=== PATIENT | female | born 1935 | race Caucasian/White ===

== ENCOUNTER 2017-07-11 21:11 | Emergency (ER) | payer MEDICARE, BC, SELFPAY ==
[2017-07-11 21:13] VITALS: BP 155/78; PULSE 67; RESP 18; TEMP 36.4; O2SAT 96; BMI 30.9
--- NOTE | 2017-07-11 21:31 | RAD_ITS ---
STUDY: X-RAY - PELVIS AND LEFT HIP REASON FOR EXAM: Female, 82 years old. Fall and left hip pain TECHNIQUE: Radiological exam, hip, unilateral, with pelvis when performed; minimum of 4 views COMPARISON: 07/09/2016 FINDINGS: Acute fractures of the left superior and inferior pubic rami and the medial left acetabulum. No proximal left femur fracture is seen. Hip joint space on the left is intact. Hardware in the right femur. Diffuse demineralization. Pelvic phleboliths. RAD/Hip 2-3 Views with Pelvis IMPRESSION: Acute fractures of the left superior and inferior pubic rami and the medial left acetabulum. Electronically Signed: Jere Todd MD at 22:47 EDT Tel , Service support ,
--- NOTE | 2017-07-11 21:31 | EKG12_ITS ---
Test Reason : FALL Blood Pressure : / mmHG Vent. Rate : 064 BPM Atrial Rate : 064 BPM P-R Int : 172 ms QRS Dur : 084 ms QT Int : 370 ms P-R-T Axes : 086 000 029 degrees QTc Int : 381 ms Normal sinus rhythm Normal ECG Confirmed by JOAQUIN TRUJILLO MD ([id number]), scientific editor KJ ESCOBAR ([id number] on 07/12/2017 2:27:47 PM Referred By: JASPREET Confirmed By:JOAQUIN TRUJILLO MD
--- NOTE | 2017-07-11 21:31 | RAD_ITS ---
STUDY: X-RAY - LUMBAR SPINE REASON FOR EXAM: Female, 82 years old. Fall TECHNIQUE: 3 view(s) of the lumbar spine were obtained. COMPARISON: 08/02/2016 FINDINGS: Remote compression deformities and vertebral augmentations at the T12 and L1 levels. Stable remote compression deformities at the L2 and L5 levels. Diffuse demineralization and facet disease. Hardware in the right femur. Aortic calcifications. Humeral hardware. RAD/Lumbar Spine 2 or 3 Views IMPRESSION: Multiple remote compression deformities as described. No acute osseous injury is visible. Comment: If there is further clinical concern for a radiographically occult spinal fracture, consider CT correlation if possible. Electronically Signed: Jere Todd MD at 22:44 EDT Tel , Service support ,
[2017-07-11] MEDS: Ondansetron 4 MG/2 ML Vial IV (21:46)
[2017-07-11] MEDS: fentaNYL 100 MCG/2 ML Ampul 25 MCG IV (21:46)
[2017-07-11 22:00] LABS: Absolute Lymphocyte Count 1.14 X10^3/ul (0.83-4.51); Absolute Neutrophil Count 11.9 X10^3/uL (2.0-7.7); Basophil# 0.01 X10^3/uL; Basophil% 0.1 % (0-1); Eosinophil# 0.05 X10^3/uL; Eosinophils% 0.4 % (0-5); Hematocrit 36.3 % (37-47); Hemoglobin 11.5 g/dl (12.0-15.0); Lymphocyte # 1.14 X10^3/ul (4.0); Lymphocyte % 8.2 % (19-41); Mean Corp Hgb Conc 31.7 g/gl (32-36); Mean Corpuscular Hgb 30.1 pg (27.0-32.0); Mean Platelet Vol. 12.3 fl (6.2-12.0); Monocyte# 0.78 X10^3/uL; Monocyte% 5.6 % (0-10); Neutrophil # 11.88 X10^3/uL (2.7-7.7); Platelet Count 148 K/mm3 (150-450); RBC Distribution Width CV 17.4 % (11.6-14.6); RBC Distribution Width SD 58.7 fl (35.1-43.9); Red Blood Count 3.82 M/mm3 (4.2-5.4)
--- NOTE | 2017-07-11 22:00 | RAD_ITS ---
STUDY: X-RAY CHEST REASON FOR EXAM: Female, 82 years old. Fall TECHNIQUE: Single frontal view of the chest. COMPARISON: 03/31/2017 FINDINGS: The lungs are clear and expanded. There is no demonstrated pleural abnormality. Normal size heart. Normal mediastinum and fritz. Normal visualized pulmonary arteries. Normal visualized aortic arch and descending thoracic aorta. Vertebral augmentations. Bilateral shoulder prostheses. There is no demonstrated abnormality of the visualized soft tissue structures of the upper abdomen. RAD/Chest 1 View (Portable) IMPRESSION: No acute pulmonary findings. Electronically Signed: Jere Todd MD at 22:42 EDT Tel , Service support ,
[2017-07-11 22:01] LABS: POSITIVE COUNT NO; POSITIVE DIFFERENTIAL NO; POSITIVE MORPHOLOGY NO
[2017-07-11 22:03] LABS: International Normalized Ratio 1.2; Prothrombin Time (Protime)PT. 15.6 SECONDS (11.7-14.9)
[2017-07-11 22:15] LABS: Anion Gap 7 (5-15); BUN 16 mg/dL (7-18); BUN/Creat Ratio 10.7 RATIO (10-20); Calcium,Total 8.1 mg/dL (8.5-10.1); Chloride 104 mmol/L (98-107); EST Glomerular Filtration Rate 35 mL/min (>60); Est Glom Filt Rate - Afr Amer 43 mL/min (>60); Estimated Creatinine Clearance 21.13 ml/min; Glucose 107 mg/dL (74-106); Potassium 4.3 mmol/L (3.5-5.1); Sodium Level 139 mmol/L (136-145)
--- NOTE | 2017-07-11 23:11 | NURSING ---
SPOKE WITH SON ABDA. SON WAS GIVEN UPDATE OF PATIENTS CONDITION. WILL CALL SON WHEN FURTHER PLAN OF CARE IS DEVELOPED. HIS NUMBER IS [phone]
[2017-07-11 23:30] VITALS: BP 179/86; PULSE 76; RESP 22; O2SAT 96
[2017-07-11] MEDS: fentaNYL 100 MCG/2 ML Ampul 50 MCG IV (23:36)
--- NOTE | 2017-07-12 00:08 | ED.VISSUMM ---
- ER Visit Summary Date of Service: 07/12/17 Chief Complaint: Fall History of Present Illness: The patient is a 82 F who presents after a fall. She presents from a nursing facility. Normally she requires assistance to ambulate. She had gotten up to go to the bathroom. After getting back in bed her pants were still on. She tried to stand up at the side of her bed on her own to change when she fell. She currently only complains of lower back pain and left hip pain. Inability to ambulate. Denies head injury loss of consciousness headache or vomiting. Denies chest pain abdominal pain upper back or neck pain. Physical Examination: Afebrile vitals are stable Heart regular rate and rhythm Lungs are clear Abdomen soft 2+ dorsalis pedis pulses Painful limited range of motion in the bilateral lower extremities as this reproduces severe left hip pain no shortening Test Results: Chest x-ray shows no acute process. Lumbar x-ray shows old fractures no acute fractures. Hip x-ray shows left superior and inferior pubic rami fracture as well as a left acetabular fracture. EKG shows sinus rhythm at a rate of 64. Laboratory studies show white blood cell count 14.0 creatinine 1.5. INR 1.2. Emergency Department Course and Treatment: X-rays are notable for inferior and superior pubic rami fractures and a left acetabular fracture on the left. Therefore she was transferred to a trauma facility. Her prior surgeries have been done at [facility] therefore she was transferred to [facility]. She was given fentanyl for pain here. She did desaturate and require oxygen via nasal cannula. Treatment Plan: [] Disposition: Transfer Impression: Left acetabular fracture Left superior and inferior pubic rami fractures This note was generated with [employer] dictation software. It may contain incorrect words, spelling, and punctuation that were not noted in review of the chart prior to signing ED Disposition - Plan for ED Patient: Chief Complaint: Fall Referrals: Eddy Leigh III, MD [Primary Care Provider] -
--- NOTE | 2017-07-12 00:11 | ED.RN ---
[facility] called and updated on patients condition and status. snf will contact family and update
--- NOTE | 2017-07-12 00:12 | ED.DCSUM_ITS ---
- ER Visit Summary Date of Service: 07/12/17 Chief Complaint: Fall History of Present Illness: The patient is a 82 F who presents after a fall. She presents from a nursing facility. Normally she requires assistance to ambulate. She had gotten up to go to the bathroom. After getting back in bed her pants were still on. She tried to stand up at the side of her bed on her own to change when she fell. She currently only complains of lower back pain and left hip pain. Inability to ambulate. Denies head injury loss of consciousness headache or vomiting. Denies chest pain abdominal pain upper back or neck pain. Physical Examination: Afebrile vitals are stable Heart regular rate and rhythm Lungs are clear Abdomen soft 2+ dorsalis pedis pulses Painful limited range of motion in the bilateral lower extremities as this reproduces severe left hip pain no shortening Test Results: Chest x-ray shows no acute process. Lumbar x-ray shows old fractures no acute fractures. Hip x-ray shows left superior and inferior pubic rami fracture as well as a left acetabular fracture. EKG shows sinus rhythm at a rate of 64. Laboratory studies show white blood cell count 14.0 creatinine 1.5. INR 1.2. Emergency Department Course and Treatment: X-rays are notable for inferior and superior pubic rami fractures and a left acetabular fracture on the left. Therefore she was transferred to a trauma facility. Her prior surgeries have been done at [facility] therefore she was transferred to [facility]. She was given fentanyl for pain here. She did desaturate and require oxygen via nasal cannula. Treatment Plan: [] Disposition: Transfer Impression: Left acetabular fracture Left superior and inferior pubic rami fractures This note was generated with [employer] dictation software. It may contain incorrect words, spelling, and punctuation that were not noted in review of the chart prior to signing ED Disposition - Plan for ED Patient: Chief Complaint: Fall Referrals: Eddy Leigh III, MD [Primary Care Provider] -
[2017-07-12 01:00] VITALS: BP 161/67; PULSE 69; RESP 18; O2SAT 94
[2017-07-12 01:01] VITALS: BP 161/67; PULSE 69; RESP 18; O2SAT 95
== END 2017-07-12 01:30 | disposition short-term general hospital (02) ==
PROVIDERS: Emergency Provider Emergency Medicine; Family Provider Family Medicine; PCP Family Medicine
DX: S32.402A Unspecified fracture of left acetabulum, initial encounter for closed fracture (principal); S32.512A Fracture of superior rim of left pubis, initial encounter for closed fracture; S32.592A Other specified fracture of left pubis, initial encounter for closed fracture; W06.XXXA Fall from bed, initial encounter; Y93.9 Activity, unspecified; Y92.129 Unspecified place in nursing home as the place of occurrence of the external cause; Y99.9 Unspecified external cause status; I10 Essential (primary) hypertension; Z79.01 Long term (current) use of anticoagulants; Z79.899 Other long term (current) drug therapy
CPT/HCPCS: 71045; 72100; 73502; 80048; 85025; 85610; 93005; 96374; 96375; 96376; 99285; A4216; J2405

== ENCOUNTER → 2017-07-15 05:00 | Outpatient (REF) | payer MEDICARE, BC, SELFPAY ==
[2017-07-15 09:10] LABS: Prothrombin Time Fingerstick 16.4 SEC (11.9-14.4)
== END ==
LOC: OLS.WCC 05:00
PROVIDERS: Visit Provider Family Medicine
DX: I48.91 Unspecified atrial fibrillation (principal); I10 Essential (primary) hypertension; Z79.899 Other long term (current) drug therapy; Z79.01 Long term (current) use of anticoagulants
CPT/HCPCS: 36416; 85610

== ENCOUNTER → 2017-07-22 05:00 | Outpatient (REF) | payer MEDICARE, BC, SELFPAY ==
[2017-07-22 10:19] LABS: Anion Gap 7 (5-15); BUN 19 mg/dL (7-18); BUN/Creat Ratio 12.9 RATIO (10-20); Calcium,Total 8.4 mg/dL (8.5-10.1); Chloride 99 mmol/L (98-107); Cholesterol 118 mg/dL (200); Creatinine, Serum 1.47 mg/dL (0.55-1.02); EST Glomerular Filtration Rate 36 mL/min (>60); Est Glom Filt Rate - Afr Amer 44 mL/min (>60); Glucose 77 mg/dL (74-106); High Density Lipoprotein 50 mg/dL; Potassium 4.2 mmol/L (3.5-5.1); Sodium Level 137 mmol/L (136-145); Thyroid Stim Hormone (TSH) 4.17 uIU/mL (0.358-3.74); Triglycerides 106 mg/dL; Very Low Density Lipoprotein 21 mg/dL (5-40)
== END ==
LOC: OLS.WCC 05:00
PROVIDERS: Visit Provider Family Medicine
DX: I48.91 Unspecified atrial fibrillation (principal); D64.9 Anemia, unspecified; I10 Essential (primary) hypertension; E78.5 Hyperlipidemia, unspecified; E03.9 Hypothyroidism, unspecified
CPT/HCPCS: 36415; 80048; 80061; 84443

== ENCOUNTER → 2017-07-29 04:00 | Outpatient (REF) | payer MEDICARE, BC, SELFPAY ==
[2017-07-29 07:51] LABS: Prothrombin Time Fingerstick 17.2 SEC (11.9-14.4)
== END ==
LOC: OLS.WCC 04:00
PROVIDERS: Visit Provider Family Medicine
DX: I48.91 Unspecified atrial fibrillation (principal); Z79.01 Long term (current) use of anticoagulants
CPT/HCPCS: 36416; 85610

== ENCOUNTER → 2017-08-05 05:00 | Outpatient (REF) | payer MEDICARE, BC, SELFPAY ==
[2017-08-05 09:28] LABS: International Normalized Ratio 2.2; Prothrombin Time (Protime)PT. 24.2 SECONDS (11.7-14.9)
[2017-08-05 09:30] LABS: Anion Gap 7 (5-15); BUN 14 mg/dL (7-18); BUN/Creat Ratio 11.4 RATIO (10-20); Calcium,Total 8.5 mg/dL (8.5-10.1); Chloride 103 mmol/L (98-107); Creatinine, Serum 1.23 mg/dL (0.55-1.02); EST Glomerular Filtration Rate 45 mL/min (>60); Est Glom Filt Rate - Afr Amer 54 mL/min (>60); Glucose 73 mg/dL (74-106); Potassium 3.7 mmol/L (3.5-5.1); Sodium Level 140 mmol/L (136-145)
== END ==
LOC: OLS.WCC 05:00
PROVIDERS: Visit Provider Family Medicine
DX: I48.91 Unspecified atrial fibrillation (principal); D64.9 Anemia, unspecified; Z79.01 Long term (current) use of anticoagulants
CPT/HCPCS: 80048; 85610

== ENCOUNTER → 2017-08-12 05:00 | Outpatient (REF) | payer MEDICARE, BC, SELFPAY ==
[2017-08-12 07:30] LABS: Prothrombin Time Fingerstick 32.9 SEC (11.9-14.4)
== END ==
LOC: OLS.WCC 05:00
PROVIDERS: Visit Provider Family Medicine
DX: I48.91 Unspecified atrial fibrillation (principal); Z79.01 Long term (current) use of anticoagulants
CPT/HCPCS: 36416; 85610

== ENCOUNTER → 2017-08-19 05:00 | Outpatient (REF) | payer MEDICARE, BC, SELFPAY ==
[2017-08-19 08:36] LABS: Anion Gap 6 (5-15); BUN 15 mg/dL (7-18); BUN/Creat Ratio 12.7 RATIO (10-20); Chloride 104 mmol/L (98-107); Creatinine, Serum 1.18 mg/dL (0.55-1.02); EST Glomerular Filtration Rate 47 mL/min (>60); Est Glom Filt Rate - Afr Amer 57 mL/min (>60); Glucose 81 mg/dL (74-106); Potassium 3.4 mmol/L (3.5-5.1); Sodium Level 141 mmol/L (136-145)
[2017-08-19 08:38] LABS: Prothrombin Time (Protime)PT. 40.3 SECONDS (11.7-14.9)
[2017-08-19 08:49] LABS: International Normalized Ratio 4.1
== END ==
LOC: OLS.WCC 05:00
PROVIDERS: Visit Provider Family Medicine
DX: I48.91 Unspecified atrial fibrillation (principal); D64.9 Anemia, unspecified; Z79.899 Other long term (current) drug therapy; Z79.01 Long term (current) use of anticoagulants
CPT/HCPCS: 36415; 80048; 85610

== ENCOUNTER → 2017-08-23 05:00 | Outpatient (REF) | payer MEDICARE, BC, SELFPAY ==
[2017-08-23 08:22] LABS: Hematocrit 33.4 % (37-47); Hemoglobin 10.3 g/dl (12.0-15.0); Mean Corp Hgb Conc 30.8 g/gl (32-36); Mean Corpuscular Hgb 30.3 pg (27.0-32.0); Mean Corpuscular Volume 98.2 fL (81-99); Mean Platelet Vol. 11.5 fl (6.2-12.0); Platelet Count 203 K/mm3 (150-450); RBC Distribution Width CV 16.4 % (11.6-14.6); RBC Distribution Width SD 56.8 fl (35.1-43.9); White Blood Count 5.4 K/mm3 (4.4-11.0)
[2017-08-23 08:31] LABS: Scan Indicated on CBC? Y/N NO
[2017-08-23 08:47] LABS: International Normalized Ratio 2.3; Prothrombin Time (Protime)PT. 25.4 SECONDS (11.7-14.9)
== END ==
LOC: OLS.WCC 05:00
PROVIDERS: Visit Provider Family Medicine
DX: D64.9 Anemia, unspecified (principal); Z79.899 Other long term (current) drug therapy; Z79.01 Long term (current) use of anticoagulants
CPT/HCPCS: 36415; 85027; 85610

== ENCOUNTER → 2017-08-29 05:00 | Outpatient (REF) | payer MEDICARE, BC, SELFPAY ==
[2017-08-29 08:31] LABS: Prothrombin Time Fingerstick 33.9 SEC (11.9-14.4)
== END ==
LOC: OLS.WCC 05:00
PROVIDERS: Visit Provider Family Medicine
DX: I48.91 Unspecified atrial fibrillation (principal)
CPT/HCPCS: 36416; 85610

== ENCOUNTER → 2017-09-02 04:00 | Outpatient (REF) | payer MEDICARE, BC, SELFPAY ==
[2017-09-02 09:09] LABS: International Normalized Ratio 2.8; Prothrombin Time (Protime)PT. 29.6 SECONDS (11.7-14.9)
[2017-09-02 09:17] LABS: Anion Gap 6 (5-15); BUN 15 mg/dL (7-18); Calcium,Total 8.2 mg/dL (8.5-10.1); Chloride 104 mmol/L (98-107); Creatinine, Serum 1.25 mg/dL (0.55-1.02); EST Glomerular Filtration Rate 44 mL/min (>60); Est Glom Filt Rate - Afr Amer 53 mL/min (>60); Glucose 75 mg/dL (74-106); Potassium 3.8 mmol/L (3.5-5.1); Sodium Level 140 mmol/L (136-145)
== END ==
LOC: OLS.WCC 04:00
PROVIDERS: Visit Provider Family Medicine
DX: I48.91 Unspecified atrial fibrillation (principal); Z79.899 Other long term (current) drug therapy
CPT/HCPCS: 36415; 80048; 85610

== ENCOUNTER → 2017-09-09 05:00 | Outpatient (REF) | payer MEDICARE, BC, SELFPAY ==
[2017-09-09 09:01] LABS: Prothrombin Time Fingerstick 36.2 SEC (11.9-14.4)
== END ==
LOC: OLS.WCC 05:00
PROVIDERS: Visit Provider Family Medicine
DX: I48.91 Unspecified atrial fibrillation (principal); Z79.899 Other long term (current) drug therapy
CPT/HCPCS: 36416; 85610

== ENCOUNTER → 2017-09-23 07:46 | Outpatient (REF) | payer MEDICARE, BC, SELFPAY ==
[2017-09-26 14:59] LABS: International Normalized Ratio 1.2; Prothrombin Time (Protime)PT. 15.4 SECONDS (11.7-14.9)
== END ==
LOC: OLS.WCC 07:46
PROVIDERS: Visit Provider Family Medicine
DX: I48.91 Unspecified atrial fibrillation (principal); Z79.899 Other long term (current) drug therapy
CPT/HCPCS: 36415; 85610

== ENCOUNTER → 2017-09-30 05:00 | Outpatient (REF) | payer MEDICARE, BC, SELFPAY ==
[2017-09-30 09:47] LABS: International Normalized Ratio 1.2; Prothrombin Time (Protime)PT. 14.7 SECONDS (11.7-14.9)
[2017-09-30 09:52] LABS: Hemoglobin A1c 4.7 % (4.2-6.3)
[2017-09-30 09:59] LABS: ALB/GLOB Ratio 0.9 RATIO (0.9-2.4); AST(SGOT) 16 U/L (15-37); Alanine Aminotransfer ALT/SGPT 14 U/L (13-56); Albumin, Serum 2.5 g/dL (3.2-5.0); Alkaline Phosphatase 82 U/L (45-117); Anion Gap 9 (5-15); BUN 16 mg/dL (7-18); BUN/Creat Ratio 14.8 RATIO (10-20); CPK Total, Creatine Kinase 22 U/L (26-192); Calcium,Total 8.1 mg/dL (8.5-10.1); Chloride 102 mmol/L (98-107); Creatinine, Serum 1.08 mg/dL (0.55-1.02); EST Glomerular Filtration Rate 52 mL/min (>60); Est Glom Filt Rate - Afr Amer 63 mL/min (>60); Globulin 2.9 g/dL (2.2-4.2); Glucose 74 mg/dL (74-106); Potassium 3.7 mmol/L (3.5-5.1); Protein, Total 5.4 g/dL (6.4-8.2); Rheumatoid Factor < 10.0 IU/mL (<15); Sodium Level 141 mmol/L (136-145); Thyroid Stim Hormone (TSH) 2.02 uIU/mL (0.358-3.74)
[2017-09-30 10:05] LABS: Vitamin B12 494 pg/mL (211-911)
[2017-10-04 16:11] LABS: Albumin 2.8 g/dL (2.9-4.4); Alpha-1-Globulins 0.2 g/dL (0.0-0.4); Alpha-2-Globulins 0.7 g/dL (0.4-1.0); Cytoplasmic Ab (C-ANCA) <1:20 titer (Neg:<1:20); Gamma Globulin 0.6 g/dL (0.4-1.8); Immunoglobulin A 283 mg/dL (64-422); Immunoglobulin G 562 mg/dL (700-1600); Immunoglobulin M 82 mg/dL (26-217)
[2017-10-05 14:22] LABS: Ceruloplasmin 18.9 mg/dL (19.0-39.0); IMMUNOFIXATION RESULT,S Comment: (.); Perinuclear Ab (P-ANCA) <1:20 titer (Neg:<1:20)
== END ==
LOC: OLS.WCC 05:00
PROVIDERS: Visit Provider Family Medicine
DX: I48.91 Unspecified atrial fibrillation (principal); I10 Essential (primary) hypertension; Z79.899 Other long term (current) drug therapy; Z79.01 Long term (current) use of anticoagulants; G62.9 Polyneuropathy, unspecified; R25.1 Tremor, unspecified
CPT/HCPCS: 36415; 80053; 82390; 82525; 82550; 82607; 82784; 83036; 84165; 84443; 85610; 86038; 86235; 86256; 86334; 86431

== ENCOUNTER → 2017-10-03 14:40 | Outpatient (REF) | payer MEDICARE, BC, SELFPAY | LOC: OLS.WCC 14:40 | DX: G62.9 Polyneuropathy, unspecified (principal); R25.1 Tremor, unspecified | CPT/HCPCS: 84166; 86335 ==

== ENCOUNTER → 2017-10-07 05:00 | Outpatient (REF) | payer MEDICARE, BC, SELFPAY ==
[2017-10-07 09:50] LABS: Prothrombin Time Fingerstick 14.6 SEC (11.9-14.4)
== END ==
LOC: OLS.WCC 05:00
PROVIDERS: Visit Provider Family Medicine
DX: I48.91 Unspecified atrial fibrillation (principal); Z79.01 Long term (current) use of anticoagulants
CPT/HCPCS: 36416; 85610

== ENCOUNTER → 2017-10-30 05:00 | Outpatient (REF) | payer MEDICARE, BC, SELFPAY ==
[2017-10-30 07:48] LABS: Anion Gap 7 (5-15); BUN 23 mg/dL (7-18); BUN/Creat Ratio 15.2 RATIO (10-20); Calcium,Total 8.4 mg/dL (8.5-10.1); Chloride 102 mmol/L (98-107); Creatinine, Serum 1.51 mg/dL (0.55-1.02); EST Glomerular Filtration Rate 35 mL/min (>60); Est Glom Filt Rate - Afr Amer 43 mL/min (>60); Glucose 77 mg/dL (74-106); Potassium 4.6 mmol/L (3.5-5.1); Sodium Level 141 mmol/L (136-145)
== END ==
LOC: OLS.WCC 05:00
PROVIDERS: Visit Provider Family Medicine
DX: E78.5 Hyperlipidemia, unspecified (principal); E03.9 Hypothyroidism, unspecified; Z79.899 Other long term (current) drug therapy
CPT/HCPCS: 36415; 80048

== ENCOUNTER → 2017-11-11 05:00 | Outpatient (REF) | payer MEDICARE, BC, SELFPAY ==
[2017-11-11 09:41] LABS: Anion Gap 6 (5-15); BUN 15 mg/dL (7-18); BUN/Creat Ratio 11.9 RATIO (10-20); Calcium,Total 8.7 mg/dL (8.5-10.1); Chloride 104 mmol/L (98-107); Creatinine, Serum 1.26 mg/dL (0.55-1.02); EST Glomerular Filtration Rate 43 mL/min (>60); Est Glom Filt Rate - Afr Amer 52 mL/min (>60); Glucose 86 mg/dL (74-106); Potassium 4.4 mmol/L (3.5-5.1); Sodium Level 143 mmol/L (136-145)
== END ==
LOC: OLS.WCC 05:00
PROVIDERS: Visit Provider Family Medicine
DX: Z79.899 Other long term (current) drug therapy (principal)
CPT/HCPCS: 36415; 80048

== ENCOUNTER → 2017-11-25 05:00 | Outpatient (REF) | payer MEDICARE, BC, SELFPAY ==
[2017-11-25 10:17] LABS: Anion Gap 8 (5-15); BUN 24 mg/dL (7-18); BUN/Creat Ratio 15.5 RATIO (10-20); Calcium,Total 8.2 mg/dL (8.5-10.1); Chloride 104 mmol/L (98-107); Creatinine, Serum 1.55 mg/dL (0.55-1.02); EST Glomerular Filtration Rate 34 mL/min (>60); Est Glom Filt Rate - Afr Amer 41 mL/min (>60); Glucose 83 mg/dL (74-106); Potassium 3.9 mmol/L (3.5-5.1); Sodium Level 144 mmol/L (136-145)
== END ==
LOC: OLS.WCC 05:00
PROVIDERS: Visit Provider Family Medicine
DX: D64.9 Anemia, unspecified (principal); I10 Essential (primary) hypertension
CPT/HCPCS: 36415; 80048

== ENCOUNTER → 2017-12-09 05:00 | Outpatient (REF) | payer MEDICARE, BC, SELFPAY ==
[2017-12-09 08:10] LABS: Anion Gap 10 (5-15); BUN 23 mg/dL (7-18); BUN/Creat Ratio 16.2 RATIO (10-20); Calcium,Total 8.4 mg/dL (8.5-10.1); Chloride 105 mmol/L (98-107); Creatinine, Serum 1.42 mg/dL (0.55-1.02); EST Glomerular Filtration Rate 38 mL/min (>60); Est Glom Filt Rate - Afr Amer 46 mL/min (>60); Glucose 82 mg/dL (74-106); Potassium 4.3 mmol/L (3.5-5.1); Sodium Level 145 mmol/L (136-145)
== END ==
LOC: OLS.WCC 05:00
PROVIDERS: Visit Provider Family Medicine
DX: D64.9 Anemia, unspecified (principal); I10 Essential (primary) hypertension
CPT/HCPCS: 36415; 80048

== ENCOUNTER → 2017-12-24 05:00 | Outpatient (REF) | payer MEDICARE, BC, SELFPAY ==
[2017-12-24 09:41] LABS: Anion Gap 10 (5-15); BUN 19 mg/dL (7-18); Calcium,Total 8.4 mg/dL (8.5-10.1); Chloride 104 mmol/L (98-107); Creatinine, Serum 1.46 mg/dL (0.55-1.02); EST Glomerular Filtration Rate 37 mL/min (>60); Est Glom Filt Rate - Afr Amer 44 mL/min (>60); Glucose 80 mg/dL (74-106); Sodium Level 145 mmol/L (136-145)
== END ==
LOC: OLS.WCC 05:00
PROVIDERS: Visit Provider Family Medicine
DX: D64.9 Anemia, unspecified (principal); I10 Essential (primary) hypertension
CPT/HCPCS: 36415; 80048

== ENCOUNTER → 2018-01-06 05:00 | Outpatient (REF) | payer MEDICARE, BC, SELFPAY ==
[2018-01-06 07:33] LABS: Hematocrit 35.5 % (37-47); Hemoglobin 10.9 g/dl (12.0-15.0); Mean Corp Hgb Conc 30.7 g/gl (32-36); Mean Corpuscular Hgb 30.6 pg (27.0-32.0); Mean Corpuscular Volume 99.7 fL (81-99); Mean Platelet Vol. 11.9 fl (6.2-12.0); Platelet Count 135 K/mm3 (150-450); RBC Distribution Width CV 13.9 % (11.6-14.6); RBC Distribution Width SD 50.8 fl (35.1-43.9); Red Blood Count 3.56 M/mm3 (4.2-5.4)
[2018-01-06 07:42] LABS: Anion Gap 6 (5-15); BUN 28 mg/dL (7-18); BUN/Creat Ratio 17.5 RATIO (10-20); Calcium,Total 8.3 mg/dL (8.5-10.1); Chloride 105 mmol/L (98-107); EST Glomerular Filtration Rate 33 mL/min (>60); Est Glom Filt Rate - Afr Amer 40 mL/min (>60); Glucose 81 mg/dL (74-106); Potassium 3.9 mmol/L (3.5-5.1); Sodium Level 143 mmol/L (136-145)
[2018-01-06 07:44] LABS: Scan Indicated on CBC? Y/N NO
== END ==
LOC: OLS.WCC 05:00
PROVIDERS: Visit Provider Family Medicine
DX: D64.9 Anemia, unspecified (principal); I10 Essential (primary) hypertension
CPT/HCPCS: 36415; 80048; 85027

== ENCOUNTER → 2018-01-07 07:50 | Outpatient (CLI) | payer MEDICARE, BC, SELFPAY ==
--- NOTE | 2018-01-07 10:53 | NEURO_ITS ---
NCS and/or EMG Patient Report Ordering Doctor: Sang Baker DATE OF SERVICE: 01/07/18 This is a bilateral lower extremity nerve conduction study and a right lower extremity EMG performed on this 82-year-old female with a history of pain in her right lower extremity. There is a history of ankle fracture and increased pain to sensation on examination of her foot. She also has a history of back pain but she says this is nonradiating. Bilateral lower extremity sensory and motor nerve conduction study is performed. The sural sensory response on the right is not obtainable, on the left it is normal. The right peroneal motor response is not obtainable, on the left side the peroneal motor latency is mildly prolonged with mild reduction of amplitude and slowing of conduction velocity. The right peroneal motor response proximally demonstrates low amplitude. The bilateral tibial motor distal latencies are prolonged with mild reduction of amplitude and slowing of conduction velocities. The tibial motor and peroneal motor F-wave latencies are prolonged and the right tibial H reflex response is reduced in amplitude. Right lower extremity needle electromyography is performed. Muscles evaluated included the extensor digitorum brevis, abductor halitosis, medial gastrocnemius , anterior tibialis, vastus medialis and vastus lateralis muscles. Muscles demonstrated early recruitment and large motor unit amplitude distally, this abnormality resolved more proximally. There is no radicular or mononeuropathy pattern. 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 There is no evidence of radiculopathy.
== END ==
PROVIDERS: Family Provider Family Medicine; PCP Family Medicine; Visit Provider Psychiatry & Neurology Neurology
DX: G62.9 Polyneuropathy, unspecified (principal); R20.0 Anesthesia of skin; R20.2 Paresthesia of skin
CPT/HCPCS: 95886; 95911

== ENCOUNTER → 2018-01-11 08:50 | Outpatient (CLI) | payer MEDICARE, BC, SELFPAY ==
--- NOTE | 2018-01-11 08:50 | LES_PTH ---
PATIENT: CHANDA KUMAR LOC: [facility] U#:[id number] AGE/SX: 89/F ROOM: RE01/11/[address]: Dr. Ranjit Leigh MD : [id number] BED: DIS: SPEC #: [id number] RECD: 01/13/18 07:20 STATUS: TOBIAS BREANNA #: [id number] YAMILETH: 01/11/18 08:[address]: Ranjit Leigh DEPT: SURGICAL PATHOLOGY RECD BY: Matthew Colon ENTERED: 01/13/18 08:44 SP TYPE: Lesion OTHR DR: Dr. 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 Actinic keratosis and solar elastosis. Perineural invasion is not seen. SJ:bubba 01/14/18 COMMENT Case has been reviewed in consultation with Dr. Medina who concurs with the above diagnosis. IDC:AM MICROSCOPIC DESCRIPTION Slides are reviewed. GROSS DESCRIPTION Received in fixative is one container labeled with the patient's name and designated left cheek. The specimen consists of an ellipse of light hawthorne excised skin measuring 3 x 1 x 0.5 cm. The cutaneous surface displays an exophytic hawthorne lesion measuring 1 cm in greatest dimension. A suture is present at one tip. This tip and corresponding half is inked in blue ink. The opposite half is inked in black ink. The specimen is serially sectioned and totally submitted in two cassettes as follows: 1 - tips and uninvolved skin, 2 - lesion. / AM:bubba 01/13/18 TC:0 CPT: 38275
== END ==
PROVIDERS: Family Provider Family Medicine; PCP Family Medicine; Visit Provider Surgery
DX: D48.7 Neoplasm of uncertain behavior of other specified sites (principal)
CPT/HCPCS: 88305

== ENCOUNTER → 2018-01-20 05:00 | Outpatient (REF) | payer MEDICARE, BC, SELFPAY ==
[2018-01-20 08:23] LABS: Anion Gap 5 (5-15); BUN 21 mg/dL (7-18); BUN/Creat Ratio 13.9 RATIO (10-20); Calcium,Total 8.5 mg/dL (8.5-10.1); Chloride 103 mmol/L (98-107); Creatinine, Serum 1.51 mg/dL (0.55-1.02); EST Glomerular Filtration Rate 35 mL/min (>60); Est Glom Filt Rate - Afr Amer 43 mL/min (>60); Glucose 84 mg/dL (74-106); Potassium 3.4 mmol/L (3.5-5.1); Sodium Level 140 mmol/L (136-145)
== END ==
LOC: OLS.WCC 05:00
PROVIDERS: Visit Provider Family Medicine
DX: D64.9 Anemia, unspecified (principal)
CPT/HCPCS: 36415; 80048

== ENCOUNTER → 2018-02-03 05:00 | Outpatient (REF) | payer MEDICARE, BC, SELFPAY ==
[2018-02-03 10:01] LABS: Anion Gap 8 (5-15); BUN 20 mg/dL (7-18); BUN/Creat Ratio 13.9 RATIO (10-20); Calcium,Total 8.6 mg/dL (8.5-10.1); Chloride 102 mmol/L (98-107); Cholesterol 110 mg/dL (200); Creatinine, Serum 1.44 mg/dL (0.55-1.02); EST Glomerular Filtration Rate 37 mL/min (>60); Est Glom Filt Rate - Afr Amer 45 mL/min (>60); Glucose 64 mg/dL (74-106); High Density Lipoprotein 47 mg/dL; Potassium 4.6 mmol/L (3.5-5.1); Sodium Level 140 mmol/L (136-145); Thyroid Stim Hormone (TSH) 0.16 uIU/mL (0.358-3.74); Triglycerides 55 mg/dL; Very Low Density Lipoprotein 11 mg/dL (5-40)
== END ==
LOC: OLS.WCC 05:00
PROVIDERS: Visit Provider Family Medicine
DX: D64.9 Anemia, unspecified (principal); I10 Essential (primary) hypertension; E03.9 Hypothyroidism, unspecified
CPT/HCPCS: 36415; 80048; 80061; 84443

== ENCOUNTER → 2018-02-17 05:00 | Outpatient (REF) | payer MEDICARE, BC, SELFPAY ==
[2018-02-17 08:37] LABS: Anion Gap 8 (5-15); BUN 25 mg/dL (7-18); BUN/Creat Ratio 20.2 RATIO (10-20); Calcium,Total 8.3 mg/dL (8.5-10.1); Chloride 102 mmol/L (98-107); Creatinine, Serum 1.24 mg/dL (0.55-1.02); EST Glomerular Filtration Rate 44 mL/min (>60); Est Glom Filt Rate - Afr Amer 53 mL/min (>60); Glucose 87 mg/dL (74-106); Potassium 4.3 mmol/L (3.5-5.1); Sodium Level 140 mmol/L (136-145)
== END ==
LOC: OLS.WCC 05:00
PROVIDERS: Visit Provider Family Medicine
DX: D64.9 Anemia, unspecified (principal); I10 Essential (primary) hypertension
CPT/HCPCS: 36415; 80048

== ENCOUNTER → 2018-03-03 04:00 | Outpatient (REF) | payer MEDICARE, BC, SELFPAY ==
[2018-03-03 08:58] LABS: Anion Gap 6 (5-15); BUN 22 mg/dL (7-18); BUN/Creat Ratio 16.5 RATIO (10-20); Calcium,Total 8.2 mg/dL (8.5-10.1); Chloride 103 mmol/L (98-107); Creatinine, Serum 1.33 mg/dL (0.55-1.02); EST Glomerular Filtration Rate 41 mL/min (>60); Est Glom Filt Rate - Afr Amer 49 mL/min (>60); Glucose 81 mg/dL (74-106); Potassium 4.1 mmol/L (3.5-5.1); Sodium Level 139 mmol/L (136-145)
== END ==
LOC: OLS.WCC 04:00
PROVIDERS: Visit Provider Family Medicine
DX: D64.9 Anemia, unspecified (principal); I10 Essential (primary) hypertension
CPT/HCPCS: 36415; 80048

== ENCOUNTER → 2018-03-25 05:00 | Outpatient (REF) | payer MEDICARE, BC, SELFPAY ==
[2018-03-25 09:43] LABS: Absolute Lymphocyte Count 1.16 X10^3/ul (0.83-4.51); Absolute Neutrophil Count 2.6 X10^3/uL (2.0-7.7); Basophil# 0.01 X10^3/uL; Basophil% 0.2 % (0-1); Eosinophil# 0.04 X10^3/uL; Eosinophils% 0.9 % (0-5); Hematocrit 35.4 % (37-47); Hemoglobin 11.2 g/dl (12.0-15.0); Lymphocyte # 1.16 X10^3/ul (4.0); Lymphocyte % 26.7 % (19-41); Mean Corp Hgb Conc 31.6 g/gl (32-36); Mean Corpuscular Hgb 31.4 pg (27.0-32.0); Mean Corpuscular Volume 99.2 fL (81-99); Mean Platelet Vol. 11.6 fl (6.2-12.0); Monocyte# 0.49 X10^3/uL; Monocyte% 11.3 % (0-10); Neutrophil # 2.63 X10^3/uL (2.7-7.7); Neutrophil % 60.7 % (47-70); Platelet Count 173 K/mm3 (150-450); RBC Distribution Width CV 15.4 % (11.6-14.6); RBC Distribution Width SD 55.8 fl (35.1-43.9); Red Blood Count 3.57 M/mm3 (4.2-5.4); White Blood Count 4.3 K/mm3 (4.4-11.0)
[2018-03-25 09:45] LABS: POSITIVE COUNT NO; POSITIVE DIFFERENTIAL NO; POSITIVE MORPHOLOGY NO
[2018-03-25 10:08] LABS: AST(SGOT) 21 U/L (15-37); Alanine Aminotransfer ALT/SGPT 11 U/L (13-56); Albumin, Serum 2.5 g/dL (3.2-5.0); Alkaline Phosphatase 71 U/L (45-117); Anion Gap 10 (5-15); BUN 18 mg/dL (7-18); BUN/Creat Ratio 14.4 RATIO (10-20); Calcium,Total 8.1 mg/dL (8.5-10.1); Chloride 105 mmol/L (98-107); Creatinine, Serum 1.25 mg/dL (0.55-1.02); EST Glomerular Filtration Rate 44 mL/min (>60); Est Glom Filt Rate - Afr Amer 53 mL/min (>60); Globulin 2.6 g/dL (2.2-4.2); Glucose 73 mg/dL (74-106); Potassium 3.2 mmol/L (3.5-5.1); Protein, Total 5.1 g/dL (6.4-8.2); Sodium Level 143 mmol/L (136-145); Thyroid Stim Hormone (TSH) 0.34 uIU/mL (0.358-3.74)
== END ==
LOC: OLS.WCC 05:00
PROVIDERS: Visit Provider Family Medicine
DX: E03.9 Hypothyroidism, unspecified (principal); N18.9 Chronic kidney disease, unspecified; D50.9 Iron deficiency anemia, unspecified
CPT/HCPCS: 36415; 80053; 84443; 85025

== ENCOUNTER → 2018-04-02 05:00 | Outpatient (REF) | payer MEDICARE, BC, SELFPAY ==
[2018-04-02 08:06] LABS: Anion Gap 8 (5-15); BUN 19 mg/dL (7-18); BUN/Creat Ratio 17.1 RATIO (10-20); Chloride 107 mmol/L (98-107); Creatinine, Serum 1.11 mg/dL (0.55-1.02); EST Glomerular Filtration Rate 50 mL/min (>60); Est Glom Filt Rate - Afr Amer 61 mL/min (>60); Glucose 71 mg/dL (74-106); Potassium 3.5 mmol/L (3.5-5.1); Sodium Level 144 mmol/L (136-145)
--- OUTSIDE RECORDS SUMMARY | 2018-05-19 01:11 | XMS RPT_ITS ---
:1935 Author Organization OHIP Support Name Relationship Address Phone R Unavailable Unavailable Unavailable Amanda Baker Unavailable [address] + [place] [address] Dinh Baker Unavailable Unavailable + R Unavailable Unavailable Unavailable AMANDA BAKER Unavailable [address] + [place] [address] DINH BAKER Unavailable Unavailable + R Unavailable Unavailable Unavailable Amanda Baker Unavailable [address] + [place] [address] Dinh Baker Unavailable . + [place] [address] R Unavailable Unavailable Unavailable Amanda Baker Unavailable [address] + [place] [address] Dinh Baker Unavailable Unavailable + R Unavailable Unavailable Unavailable Amanda Baker Unavailable [address] + [place] [address] Dinh Baker Unavailable . + [place] [address] R Unavailable Unavailable Unavailable Amanda Baker Unavailable [address] + [place] [address] Dinh Baker Unavailable Unavailable + R Unavailable Unavailable Unavailable AMANDA BAKER Unavailable [address] + [place] [address] DINH BAKER Unavailable Unavailable + R Unavailable Unavailable Unavailable Amanda Baker Unavailable [address] + [place] [address] Dinh Baker Unavailable Unavailable + R Unavailable Unavailable Unavailable AMANDA BAKER Unavailable [address] + [place] [address] DINH BAKER Unavailable . + [place] [address] R Unavailable Unavailable Unavailable AMANDA BAKER Unavailable [address] + [place] [address] DINH BAKER Unavailable Unavailable + [place] [address] R Unavailable Unavailable Unavailable SAMUELAMANDA Unavailable [address] + [place] [address] DINH BAKER Unavailable . + [place] [address] R Unavailable Unavailable Unavailable SAMUELJARETTEN Unavailable [address] + [place] [address] DINH BAKER Unavailable Unavailable + [place] [address] R Unavailable Unavailable Unavailable SAMUEL AMANDA Unavailable [address] + [place] [address] DINH BAKER Unavailable Unavailable + R Unavailable Unavailable Unavailable SamuelJaretten Unavailable [address] + [place] [address] Dinh Baker Unavailable . + [place] [address] R Unavailable Unavailable Unavailable SAMUELJARETTEN Unavailable [address] + [place] [address] DINH BAKER Unavailable Unavailable + R Unavailable Unavailable Unavailable Samuel Amanda Unavailable [address] + [place] [address] Dinh Baker Unavailable Unavailable + R Unavailable Unavailable Unavailable AMANDA BAKER Unavailable [address] + [place] [address] DINH BAKER Unavailable . + [place] [address] R Unavailable Unavailable Unavailable Samuel Amanda Unavailable [address] + [place] [address] Dinh Baker Unavailable . + [place] [address] R Unavailable Unavailable Unavailable SAMUELJARETTEN Unavailable [address] + [place] [address] DINH BAKER Unavailable Unavailable + [place] [address] R Unavailable Unavailable Unavailable SamuelJaretten Unavailable [address] + [place] [address] Dinh Baker Unavailable . + [place] [address] R Unavailable Unavailable Unavailable SAMUELJARETTEN Unavailable [address] + [place] [address] ANIBAL BAKERE Unavailable Unavailable + [place] [address] R Unavailable Unavailable Unavailable Amanda Baker Unavailable [address] + [place] [address] Dinh Baker Unavailable . + [place] [address] R Unavailable Unavailable Unavailable Amanda Baker Unavailable [address] + [place] [address] Dinh Baker Unavailable . + [place] [address] R Unavailable Unavailable Unavailable Amanda Baker Unavailable [address] + [place] [address] Dinh Baker Unavailable . + [place] [address] R Unavailable Unavailable Unavailable Amanda Baker Unavailable [address] + [place] [address] Dinh Baker Unavailable . + [place] [address] R Unavailable Unavailable Unavailable Amanda Baker Unavailable [address] + [place] [address] Dinh Baker Unavailable . + [place] [address] R Unavailable Unavailable Unavailable Amanda Baker Unavailable [address] + [place] [address] Dinh Baker Unavailable . + [place] [address] R Unavailable Unavailable Unavailable Amanda Baker Unavailable [address] + [place] [address] Dinh Baker Unavailable . + [place] [address] R Unavailable Unavailable Unavailable SamuelAmanda Unavailable [address] + [place] [address] Anibal Bakere Unavailable . + [place] [address] R Unavailable Unavailable Unavailable SamuelAmanda Unavailable [address] + [place] [address] Dinh Baker Unavailable . + [place] [address] R Unavailable Unavailable Unavailable SamuelAmanda Unavailable [address] + [place] [address] Anibal Bakere Unavailable . + [place] [address] R Unavailable Unavailable Unavailable SamuelAmanda Unavailable [address] + [place] [address] Dinh Baker Unavailable . + [place] [address] R Unavailable Unavailable Unavailable SamuelAmanda Unavailable [address] + [place] [address] Dinh Baker Unavailable . + [place] [address] R Unavailable Unavailable Unavailable SamuelJaretten Unavailable [address] + [place] [address] Dinh Baker Unavailable . + [place] [address] Dinh Baker Unavailable Unavailable + Samuel Amanda Unavailable Unavailable + R Unavailable Unavailable Unavailable SamuelAmanda Unavailable [address] + [place] [address] Dinh Baker Unavailable . + [place] [address] R Unavailable Unavailable Unavailable SamuelJraetten Unavailable [address] + [place] [address] Dinh Baker Unavailable . + [place] [address] R Unavailable Unavailable Unavailable Samuel Amanda Unavailable [address] + [place] [address] Dinh Baker Unavailable . + [place] [address] R Unavailable Unavailable Unavailable Amanda Baker Unavailable [address] + [place] [address] Dinh Baker Unavailable . + [place] [address] R Unavailable Unavailable Unavailable Samuel Amanda Unavailable [address] + [place] [address] Dinh Baker Unavailable . + [place] [address] R Unavailable Unavailable Unavailable Samuel Amanda Unavailable [address] + [place] [address] Dinh Baker Unavailable . + [place] [address] R Unavailable Unavailable Unavailable Amanda Baker Unavailable [address] + [place] [address] Dinh Baker Unavailable . + [place] [address] R Unavailable Unavailable Unavailable Amanda Baker Unavailable [address] + [place] [address] Dinh Baker Unavailable . + [place] [address] R Unavailable Unavailable Unavailable Amanda Baker Unavailable [address] + [place] [address] Dinh Baker Unavailable . + [place] [address] R Unavailable Unavailable Unavailable Amanda Baker Unavailable [address] + [place] [address] Dinh Baker Unavailable . + [place] [address] R Unavailable Unavailable Unavailable Amanda Baker Unavailable [address] + [place] [address] Dinh Baker Unavailable . + [place] [address] R Unavailable Unavailable Unavailable Amanda Baker Unavailable [address] + [place] [address] Dinh Baker Unavailable . + [place] [address] R Unavailable Unavailable Unavailable Amanda Baker Unavailable [address] + [place] [address] Dinh Baker Unavailable . + [place] [address] R Unavailable Unavailable Unavailable Amanda Baker Unavailable [address] + [place] [address] Dinh Baker Unavailable . + [place] [address] R Unavailable Unavailable Unavailable Amanda Baker Unavailable [address] + [place] [address] Dinh Baker Unavailable . + [place] [address] Care Team Providers Name Role Phone Escobar, Stephen Attending Unavailable Escobar, Stephen Attending Unavailable Escobar, Stephen Attending Unavailable Escobar, Stephen Attending Unavailable Escobar, Stephen Attending Unavailable Escobar, Stephen Attending Unavailable Escobar, Stephen Attending Unavailable Escobar, Stephen Attending Unavailable Escobar, Stephen Attending Unavailable Escobar, Stephen Attending Unavailable Escobar, Stephen Attending Unavailable Escobar, Stephen Attending Unavailable Escobar, Stephen Attending Unavailable Escobar, Stephen Attending Unavailable Escobar, Stephen Attending Unavailable Roof, Stephen Moss Attending Unavailable Cebul III, Presley Referring Unavailable DeFinis, Roddy Attending Unavailable Cebul III, Presley Primary Care Unavailable ChaloSegun Attending Unavailable Escobar, Stephen Attending Unavailable Escobar, Stephen Attending Unavailable Escobar, Stephen Attending Unavailable Escobar, Stephen Attending Unavailable Escobar, Stephen Attending Unavailable Escobar, Stephen Attending Unavailable Escobar, Stephen Attending Unavailable Escobar, Stephen Attending Unavailable Escobar, Stephen Attending Unavailable Escobar, Stephen Attending Unavailable Escobar, Stephen Attending Unavailable Escobar, Stephen Attending Unavailable Escobar, Stephen Attending Unavailable [facility] Attending Unavailable Escobar, Stephen Attending Unavailable Escobar, Stephen Attending Unavailable Escobar, Stephen Attending Unavailable Escobar, Stephen Attending Unavailable Escobar, Stephen Attending Unavailable Escobar, Stephen Attending Unavailable Cebul, Ranjit Attending Unavailable Cebul III, Presley Referring Unavailable Cebul III, Presley Primary Care Unavailable Escobar, Stephen Attending Unavailable Sang Baker Attending Unavailable Sang Baker Referring Unavailable Cebul III, Presley Primary Care Unavailable Cebul, Ranjit Attending Unavailable Cebul III, Presley Referring Unavailable Cebul III, Presley Primary Care Unavailable Cebul, Ranjit Attending Unavailable Cebul, Ranjit Referring Unavailable Cebul III, Presley Primary Care Unavailable Brittnee Queen PA-C Attending Unavailable Cebul III, Presley Referring Unavailable Escobar, Stephen Attending Unavailable Escobar, Stephen Attending Unavailable Escobar, Stephen Attending Unavailable Escobar, Stephen Attending Unavailable Escobar, Stephen Attending Unavailable KAREN OSUNA Attending Unavailable PROVIDER, UNKNOWN Referring Unavailable UNKNOWN, PROVIDER Primary Care Unavailable ALEX BAKER Referring Unavailable ALEX BAKER Referring Unavailable CEBUL III, PRESLEY A Referring Unavailable CEBUL III, PRESLEY A Referring Unavailable [facility] Referring Unavailable Stephen Escobar H Primary Care Unavailable [facility] Referring Unavailable Escobar, Stephen H Primary Care Unavailable PROBLEMS PROBLEMS DATE TYPE CONDITION / CODE ATTENDING STATUS SOURCE 05/01/2018 Unknown I10 - Essential Stephen Escobar Active [facility] (primary) [facility] hypertension / Hospital I10(ICD-10) Repository 05/01/2018 Unknown F03.90 - Stephen Escobar Active [facility] Unspecified Community dementia without Hospital behavioral Repository disturbance / F03.90(ICD-10) 05/01/2018 Unknown R63.4 - Abnormal Stephen Escobar Active [facility] weight loss / Community R63.4(ICD-10) Hospital Repository 05/01/2018 Unknown R11.2 - Nausea with Stephen Escobar Active [facility] vomiting, Community unspecified / Hospital R11.2(ICD-10) Repository 04/08/2018 Active Other specified NA Active [facility] Main / N64.89(ICD-10) [place] Repository 05/06/2018 Unknown E03.9 - Stephen Escobar Active [place] Hypothyroidism, Community unspecified / Hospital E03.9(ICD-10) Repository 03/12/2018 Active Encounter for NA Active [facility] screening mammogram Clinic Main for malignant [place] neoplasm of breast Repository / Z12.31(ICD-10) 01/11/2018 Unknown L98.9 - Disorder of Ranjit Leigh Active [place] the skin and Community subcutaneous Hospital tissue, unspecified Repository / L98.9(ICD-10) 05/06/2018 Unknown D64.9 - Anemia, Stephen Escobar Active [facility] unspecified / Community D64.9(ICD-10) Hospital Repository 01/10/2018 Unknown Z79.899 - Other Stephen Escobar Active [place] [facility] (current) Community drug therapy / Hospital Z79.899(ICD-10) Repository 01/10/2018 Unknown E78.5 - Stephen Escobar Active [place] Hyperlipidemia, Community unspecified / Hospital E78.5(ICD-10) Repository 10/29/2017 Admitting Unknown / NA Active [facility] UNK(Unknown) [facility] Repository 10/29/2017 Active Unknown / NA Active [facility] UNK(Unknown) Clinic Other [place] Repository 12/18/2017 Unknown Z79.01 - senior care Stephen Escobar Active [facility] (current) use of Community anticoagulants / Hospital Z79.01(ICD-10) Repository 12/18/2017 Unknown I48.91 - Stephen Escobar Active [place] Unspecified atrial Community fibrillation / Hospital I48.91(ICD-10) Repository 07/12/2017 Admitting Multiple fx of GEUBE, Active [facility] pelvis w stable [facility] System disrupt of pelvic Repository ring, init / S32.810A(ICD-10) 07/12/2017 Admitting Unspecified fall, GEUBE, Active [facility] initial encounter / [facility] System W19.XXXA(ICD-10) Repository 07/12/2017 Admitting Unspecified atrial GEUBE, Active [facility] fibrillation / [facility] System I48.91(ICD-10) Repository 07/12/2017 Admitting Hyperlipidemia, GEUBE, Active [facility] unspecified / [facility] System E78.5(ICD-10) Repository 07/12/2017 Admitting Essential (primary) GEUBE, Active [facility] hypertension / [facility] System I10(ICD-10) Repository 07/12/2017 Admitting Nonrheumatic mitral GEUBE, Active [facility] Diagnosis (valve) prolapse / [facility] System I34.1(ICD-10) Repository 07/12/2017 Admitting Acquired absence of GEUBE, Active [facility] other specified [facility] System parts of digestive Repository tract / Z90.49(ICD-10) 07/12/2017 Admitting Allergy status to GEUBE, Active [facility] narcotic agent [facility] System status / Repository Z88.5(ICD-10) 07/12/2017 Admitting Allergy status to GEUBE, Active [facility] oth drug/meds/biol [facility] System subst status / Repository Z88.8(ICD-10) 07/12/2017 Admitting Latex allergy GEUBE, Active [facility] Diagnosis status / [facility] System Z91.040(ICD-10) Repository 07/12/2017 Admitting Fracture of unsp GEUBE, Active [facility] Diagnosis parts of [facility] System lumbosacral spine Repository and pelvis, init / S32.9XXA(ICD-10) PROCEDURES PROCEDURES No Procedure Records FoundRESULTS RESULTS BASIC METABOLIC Collected: 2018 Status: F Source: [place] PROFILE (BMP) 7:30 AM [facility] [place] Order Comment: 127-2 TYPE CODE TESTS RESULT OUT OF RANGE REFERENCE UNITS LAB L501.0100 74-106 mg/dL Normal GLU 76 Result Comment: Please note revised GLUCOSE reference range effective 2017. LAB L501.1000 7-18 mg/dL Normal BUN 16 LAB L501.1100 0.55-1.02 mg/dL Normal CREAT,SERUM 0.89 Result Comment: The validity of the calculated GFR AND GFRAA in patients over 70 years has not been determined. Clinical correlation is essential. LAB L501.1110 >60 mL/min Normal EST GFR 65 Result Comment: Non- GFR Calc LAB L501.1115 >60 mL/min Normal EST GFR - AA 78 Result Comment: GFR Calc LAB L501.1300 10-20 RATIO Normal BUN/CRE 18.0 LAB L501.2200 8.5-10.1 mg/dL Low CA 7.7 LAB L501.5300 136-145 mmol/L NA Normal 142 LAB L501.5600 3.5-5.1 mmol/L K Normal 3.6 LAB L501.5900 98-107 mmol/L High CL 108 LAB L501.6100 21.0-32.0 mmol/L Normal CO2 27.0 LAB L501.6200 5-15 Normal GAP 7 Performed By: #### L500.2500 #### [facility] [address] [place], [address] CBC-COMPLETE BLOOD CNT Collected: 04/17/2018 Status: F Source: [place] NO DIFF 6:55 AM [facility] [place] [facility] Order Comment: 127-2 TYPE CODE TESTS RESULT OUT OF RANGE REFERENCE UNITS LAB L100.1000 4.4-11.0 K/mm3 Normal WBC 4.4 LAB L100.1200 4.2-5.4 M/mm3 Low RBC 3.75 LAB L100.1300 12.0-15.0 g/dl Low HGB 11.8 LAB L100.1400 37-47 % Normal HCT 37.2 LAB L100.1500 81-99 fL High MCV 99.2 LAB L100.1600 27.0-32.0 pg Normal MCH 31.5 LAB L100.1700 32-36 g/gl Low MCHC 31.7 LAB L100.1810 11.6-14.6 % High RDW CV 16.0 LAB L100.1820 35.1-43.9 fl High RDW SD 57.9 LAB L100.1900 150-450 K/mm3 Normal PLT 170 LAB L100.2000 6.2-12.0 fl Normal MPV 11.3 Performed By: #### L100.0500 #### [facility] [address] [place], [place], [address] COMPREHENSIVE METABOLIC Collected: 04/17/2018 Status: F Source: [facility] 6:55 AM [facility] [place] [facility] Order Comment: 127-2 TYPE CODE TESTS RESULT OUT OF RANGE REFERENCE UNITS LAB L501.0100 74-106 mg/dL Normal GLU 78 Result Comment: Please note revised GLUCOSE reference range effective 2017. LAB L501.1000 7-18 mg/dL High BUN 19 LAB L501.1100 0.55-1.02 mg/dL Normal CREAT,SERUM 0.99 Result Comment: The validity of the calculated GFR AND GFRAA in patients over 70 years has not been determined. Clinical correlation is essential. LAB L501.1110 >60 mL/min Low EST GFR 57 Result Comment: Non- GFR Calc LAB L501.1115 >60 mL/min Normal EST GFR - AA 69 Result Comment: GFR Calc LAB L501.1300 10-20 RATIO Normal BUN/CRE 19.2 LAB L501.1500 6.4-8.2 g/dL Low T PROT 4.7 LAB L501.1800 3.2-5.0 g/dL Low ALB 2.2 LAB L501.1950 2.2-4.2 g/dL Normal GLOB 2.5 LAB L501.2000 0.9-2.4 RATIO Normal A/G 0.9 LAB L501.2200 8.5-10.1 mg/dL Low CA 7.9 LAB L501.4100 15-37 U/L Normal AST 21 Result Comment: Slight Hemolysis, Result may be falsely increased. LAB L501.4305 45-117 U/L Normal ALK P 82 LAB L501.4405 13-56 U/L Normal ALT 13 LAB L501.4600 0.20-1.00 mg/dL Normal T BILI 0.50 LAB L501.5300 136-145 mmol/L Normal NA 141 LAB L501.5600 3.5-5.1 mmol/L Normal K 3.9 Result Comment: Slight Hemolysis, Result may be falsely increased. LAB L501.5900 98-107 mmol/L Normal CL 106 LAB L501.6100 21.0-32.0 mmol/L Normal CO2 27.0 LAB L501.6200 5-15 Normal 8 GAP Performed By: #### L500.4050, L501.2400, L501.2450 #### [facility] [address] [place], [address] AMYLASE Collected: 04/17/2018 Status: F Source: [place] 6:55 AM [facility] [place] Order Comment: 127-2 TYPE CODE TESTS RESULT OUT OF RANGE REFERENCE UNITS LAB L501.2400 25-115 U/L Low ANGELIA 16 Performed By: #### L500.4050, L501.2400, L501.2450 #### [facility] [address] [place], [address] LIPASE Collected: 04/17/2018 Status: F Source: [place] 6:55 AM [facility] [place] [facility] Order Comment: 127-2 TYPE CODE TESTS RESULT OUT OF REFERENCE UNITS RANGE LAB L501.2450 73-393 U/L Low LIPASE 40 Performed By: #### L500.4050, L501.2400, L501.2450 #### [facility] [address] [place], [address] CNCO Observed: 04/08/2018 Status: COMPLETED Source: [place] 1:30 PM [facility] REPOSITORY HNO ID: [id number] Author: Mammography Coordinator Service: (none) Author Type: Physician Type: Letter Filed: 04/09/2018 11:32 PM Note Text: April 08, 2018 PID: [id number] Xi Mon Samuel [address] [place] [address] Dear Ms. Baker, We are pleased to inform you that the results of your recent breast imaging exam on 04/08/2018 are normal and we recommend that you return to your annual screening Mammography schedule. Early detection of cancer is very important. We also understand recommendations regarding breast cancer screening are controversial. Please discuss with your primary care provider which strategy is best for you and whether a mammogram is right for you. Your imaging studies and report will be kept on file at [facility] as part of your permanent medical record and are available for your continuing care. Thank you for allowing us to help in meeting your health care needs. Sincerely, Dr. Soriano Interpreting Radiologist [facility] (Return to Annual Mammogram schedule) [facility] DIAGNO[facility]IC [facility] Observed: 04/08/2018 Status: F Source: [place] 1:26 PM [facility] REPOSITORY * * *Final Report* * * DATE OF EXAM: Apr 08 2018 1:26PM WRW [id number] - [facility] DIAGNOSTIC LT / PROCEDURE REASON: Breast asymmetry * * * * Physician Interpretation * * * * RESULT: #[id number] - [facility] DIAGNOSTIC LT UNILATERAL LEFT DIGITAL DIAGNOSTIC MAMMOGRAM WITH CAD: 04/08/2018 HISTORY: Breast Asymmetry/call back left/abnormal mammogram /priors available for comparison. RESULT: TECHNIQUE: The study was acquired using full field digital technology and interpreted from soft copy. Current study was also evaluated with a Computer Aided Detection (CAD). Comparison is made to exam dated: 03/12/2018 mammogram - [facility] [place]. There are scattered fibroglandular elements in left breast. Additional imaging reveals area of interest in the left breast on prior exam is not reproduced and presumably represents superimposed breast tissue. No significant masses, calcifications, or other findings are seen in the breast. IMPRESSION: There is no mammographic evidence of malignancy. Return to annual mammogram screening schedule is recommended. Devendra butt/abdi:04/08/2018 13:30:19 Project Crew Worker(s): RT Geoffrey(Kamini)(M), [facility] letter sent: Return to Annual Mammogram BI-RADS: 1 Negative Multiple national specialty organizations have released breast cancer screening guidelines for women at average risk for developing breast cancer - guidelines that are based on both evidence and opinion, yet differ on when to start and how often to screen for breast cancer. With representation from Breast Imaging, Internal Medicine, Women's Health, Family Medicine, and Medical/Surgical Oncology, the [facility] has carefully reviewed the data and reached the following consensus: 1) All women should engage in shared decision-making with their providers to decide when to start and how often to screen; 2) All women should have the opportunity to start screening mammography at age 40; 3) For women ages 45-55, we recommend annual screening mammograms; 4) For women ages 55 and over, we support both the transition from an annual to a biennial interval if this aligns more with patient's values and preferences, or continuation with annual screening; 5) All women should discuss with their providers when to stop screening mammograms. [employer]: Abdi Transcribe Date/Time: Apr 08 2018 1:10P Dictated by: DEVENDRA SORIANO MD This examination was interpreted and the report reviewed and electronically signed by: DEVENDRA SORIANO MD on Apr 08 2018 1:30PM EST [id number] PROGRESS Observed: 04/08/2018 Status: COMPLETED Source: [place] 1:10 PM [facility] REPOSITORY HNO ID: [id number] Author: Silva Acosta Service: (none) Author Type: (none) Type: Progress Notes Filed: 04/08/2018 1:31 PM Note Text: Radiology Service Progress Note PATIENT NAME: Xi Baker DATE OF SERVICE: April 08, 2018 TIME: 1:10 PM PATIENT IDENTITY VERIFICATION COMPLETED USING TWO (2) METHODS: Patient confirmed name verbally and Date of . PATIENT GENDER DATA: Female. status: : No status: NO. PATIENT RELEVANT IMPLANT DATA REVIEWED: Not Applicable RADIOLOGY DEPARTMENT: Women's Health left diag mammogram PERIPHERAL IV DATA: Not applicable SIGNED BY: Silva Acosta April 08, 2018 1:10 PM BASIC METABOLIC Collected: 04/02/2018 Status: F Source: [place] PROFILE (BMP) 5:40 AM [facility] [place] Order Comment: 127-2 TYPE CODE TESTS RESULT OUT OF RANGE REFERENCE UNITS LAB L501.0100 74-106 mg/dL Low GLU 71 Result Comment: Please note revised GLUCOSE reference range effective 2017. LAB L501.1000 7-18 mg/dL High BUN 19 LAB L501.1100 0.55-1.02 mg/dL High CREAT,SERUM 1.11 Result Comment: The validity of the calculated GFR AND GFRAA in patients over 70 years has not been determined. Clinical correlation is essential. LAB L501.1110 >60 mL/min Low EST GFR 50 Result Comment: Non- GFR Calc LAB L501.1115 >60 mL/min Normal EST GFR - AA 61 Result Comment: GFR Calc LAB L501.1300 10-20 RATIO Normal BUN/CRE 17.1 LAB L501.2200 8.5-10.1 mg/dL Low CA 8.0 LAB L501.5300 136-145 mmol/L NA Normal 144 LAB L501.5600 3.5-5.1 mmol/L K Normal 3.5 LAB L501.5900 98-107 mmol/L CL Normal 107 LAB L501.6100 21.0-32.0 mmol/L Normal CO2 29.0 LAB L501.6200 5-15 Normal GAP 8 Performed By: #### L500.2500 #### [facility] [address] [place], [place], [address] CBC W/DIFF, AUTOMATED Collected: 03/25/2018 Status: F Source: [place] 6:00 AM [facility] [place] Order Comment: 127/2 TYPE CODE TESTS RESULT OUT OF RANGE REFERENCE UNITS LAB L100.1000 4.4-11.0 K/mm3 Low WBC 4.3 LAB L100.1200 4.2-5.4 M/mm3 Low RBC 3.57 LAB L100.1300 12.0-15.0 g/dl Low HGB 11.2 LAB L100.1400 37-47 % Low HCT 35.4 LAB L100.1500 81-99 fL High MCV 99.2 LAB L100.1600 27.0-32.0 pg Normal MCH 31.4 LAB L100.1700 32-36 g/gl Low MCHC 31.6 LAB L100.1810 11.6-14.6 % High RDW CV 15.4 LAB L100.1820 35.1-43.9 fl High RDW SD 55.8 LAB L100.1900 150-450 K/mm3 Normal PLT 173 LAB L100.2000 6.2-12.0 fl Normal MPV 11.6 LAB L100.2100 47-70 % Normal NEUT% 60.7 LAB L100.2200 19-41 % Normal LY% 26.7 LAB L100.2300 0-10 % High MONO% 11.3 LAB L100.2400 0-5 % Normal EO% 0.9 LAB L100.2500 0-1 % Normal BASO% 0.2 LAB L100.2550 0.0-0.9 % Normal IM GRAN % 0.200 Result Comment: IG% - Immature Granulocytes (promyelocytes, myelocytes and metamyelocytes) > 1% indicates that a LEFT SHIFT is Present. LAB L100.2620 2.0-7.7 X10 3/uL Normal Absolute Neut 2.6 LAB L100.2720 0.83-4.51 X10 3/ul Normal Absolute Lymph 1.16 Performed By: #### L100.0100 #### [facility] [address] [place], [address] COMPREHENSIVE METABOLIC Collected: 03/25/2018 Status: F Source: [facility] 6:00 AM [facility] [place] Order Comment: 127/2 TYPE CODE TESTS RESULT OUT OF RANGE REFERENCE UNITS LAB L501.0100 74-106 mg/dL Low GLU 73 Result Comment: Please note revised GLUCOSE reference range effective 2017. LAB L501.1000 7-18 mg/dL Normal BUN 18 LAB L501.1100 0.55-1.02 mg/dL High CREAT,SERUM 1.25 Result Comment: The validity of the calculated GFR AND GFRAA in patients over 70 years has not been determined. Clinical correlation is essential. LAB L501.1110 >60 mL/min Low EST GFR 44 Result Comment: Non- GFR Calc LAB L501.1115 >60 mL/min Low EST GFR - AA 53 Result Comment: GFR Calc LAB L501.1300 10-20 RATIO Normal BUN/CRE 14.4 LAB L501.1500 6.4-8.2 g/dL Low T PROT 5.1 LAB L501.1800 3.2-5.0 g/dL Low ALB 2.5 LAB L501.1950 2.2-4.2 g/dL Normal GLOB 2.6 LAB L501.2000 0.9-2.4 RATIO Normal A/G 1.0 LAB L501.2200 8.5-10.1 mg/dL Low CA 8.1 LAB L501.4100 15-37 U/L Normal AST 21 LAB L501.4305 45-117 U/L Normal ALK P 71 LAB L501.4405 13-56 U/L Low ALT 11 LAB L501.4600 0.20-1.00 mg/dL T Normal BILI 0.60 LAB L501.5300 136-145 mmol/L NA Normal 143 LAB L501.5600 3.5-5.1 mmol/L Low K 3.2 LAB L501.5900 98-107 mmol/L CL Normal 105 LAB L501.6100 21.0-32.0 mmol/L Normal CO2 28.0 LAB L501.6200 5-15 Normal GAP 10 Performed By: #### L500.4050, L501.9520 #### [facility] [address] [place], [address] THYROID STIM HORMONE Collected: 03/25/2018 Status: F Source: [place] ([facility]) 6:00 AM [facility] [place] [facility] Order Comment: 127/2 TYPE CODE TESTS RESULT OUT OF RANGE REFERENCE UNITS LAB L501.9520 0.358-3.74 uIU/mL Low TSH 0.34 Performed By: #### L500.4050, L501.9520 #### [facility] [address] [place], [address] CNCO Observed: 03/12/2018 Status: COMPLETED Source: [place] 1:26 PM [facility] REPOSITORY HNO ID: [id number] Author: Mammography Coordinator Service: (none) Author Type: Physician Type: Letter Filed: 03/13/2018 11:32 PM Note Text: March 12, 2018 PID: [id number] Xi Baker [address] [place] [address] Dear Ms. Baker, Your recent breast imaging exam on 03/12/2018 showed a possible finding that requires additional imaging studies for a complete evaluation. Most such findings are probably benign (not cancer). Please call [phone] or [phone] to schedule an appointment for your additional imaging if you have not already done so. Your breast images and report will be kept on file here as part of your permanent medical record and are available for your continuing care. Thank you for allowing us to help in meeting your health care needs. Sincerely, Dr. Spicer Interpreting Radiologist [facility] (Additional imaging) [facility] SCREENING Observed: 03/12/2018 Status: F Source: [place] 8:34 AM [facility] REPOSITORY * * *Final Report* * * DATE OF EXAM: Mar 12 2018 8:34AM WOW [id number] - [facility] SCREENING / PROCEDURE REASON: Screening for breast cancer * * * * Physician Interpretation * * * * RESULT: #[id number] - [facility] SCREENING BILATERAL DIGITAL SCREENING MAMMOGRAM WITH CAD: 03/12/2018 HISTORY: Screening For Breast Cancer /patient reports NO breast symptoms /priors available for comparison. RESULT: TECHNIQUE: The study was acquired using full field digital technology and interpreted from soft copy. Current study was also evaluated with a Computer Aided Detection (CAD). Comparison is made to exams dated: 01/25/2017 mammogram, 01/23/2016 mammogram, 07/09/2014 mammogram, and 07/08/2013 mammogram - [facility]. There are scattered fibroglandular elements in both breasts. The study is limited in positioning due to the patient's limited mobility. There is an asymmetry in the left breast outer region seen on the craniocaudal view only. No other significant masses, calcifications, or other findings are seen in either breast. IMPRESSION: INCOMPLETE: NEEDS ADDITIONAL IMAGING EVALUATION The asymmetry in the left breast is indeterminate. Additional views are recommended. Asha Spicer M.D., ch/abdi:03/12/2018 13:26:20 Attending Technologist(s): Sally Maradiaga RT(R)(M), [facility] Project Crew Worker(s): RT Geoffrey(R)(M), [facility] letter sent: Additional Imaging Needed Mammogram BI-RADS: 0 Incomplete: needs additional imaging evaluation If this report indicates you need additional imaging, and it has NOT yet been performed, please call , to schedule. We sincerely thank you for choosing the [facility] for your breast imaging needs. Multiple national specialty organizations have released breast cancer screening guidelines for women at average risk for developing breast cancer - guidelines that are based on both evidence and opinion, yet differ on when to start and how often to screen for breast cancer. With representation from Breast Imaging, Internal Medicine, Women's Health, Family Medicine, and Medical/Surgical Oncology, the [facility] has carefully reviewed the data and reached the following consensus: 1) All women should engage in shared decision-making with their providers to decide when to start and how often to screen; 2) All women should have the opportunity to start screening mammography at age 40; 3) For women ages 45-55, we recommend annual screening mammograms; 4) For women ages 55 and over, we support both the transition from an annual to a biennial interval if this aligns more with patient's values and preferences, or continuation with annual screening; 5) All women should discuss with their providers when to stop screening mammograms. [employer]: Abdi Transcribe Date/Time: Mar 12 2018 8:05A Dictated by: ASHA SPICER MD This examination was interpreted and the report reviewed and electronically signed by: ASHA SPICER MD on Mar 12 2018 1:26PM EST [id number] Observed: 03/12/2018 Status: COMPLETED Source: [place] 7:55 AM [facility] REPOSITORY HNO ID: [id number] Author: Silva Acosta Service: (none) Author Type: (none) Type: Progress Notes Filed: 03/12/2018 8:00 AM Note Text: Radiology Service Progress Note PATIENT NAME: Xi Baker DATE OF SERVICE: March 12, 2018 TIME: 7:55 AM PATIENT IDENTITY VERIFICATION COMPLETED USING TWO (2) METHODS: Patient confirmed name verbally and Date of . PATIENT GENDER DATA: Female. status: : No status: NO. PATIENT RELEVANT IMPLANT DATA REVIEWED: Not Applicable RADIOLOGY DEPARTMENT: Women's Health olinda scr mammogram PERIPHERAL IV DATA: Not applicable SIGNED BY: Silva Acosta March 12, 2018 7:55 AM BASIC METABOLIC Collected: 03/03/2018 Status: F Source: [facility] PROFILE (BMP) 6:15 AM [facility] [place] Order Comment: ROOM 127 TYPE CODE TESTS RESULT OUT OF RANGE REFERENCE UNITS LAB L501.0100 74-106 mg/dL Normal GLU 81 Result Comment: Please note revised GLUCOSE reference range effective 2017. LAB L501.1000 7-18 mg/dL High BUN 22 LAB L501.1100 0.55-1.02 mg/dL High CREAT,SERUM 1.33 Result Comment: The validity of the calculated GFR AND GFRAA in patients over 70 years has not been determined. Clinical correlation is essential. LAB L501.1110 >60 mL/min Low EST GFR 41 Result Comment: Non- GFR Calc LAB L501.1115 >60 mL/min Low EST GFR - AA 49 Result Comment: GFR Calc LAB L501.1300 10-20 RATIO Normal BUN/CRE 16.5 LAB L501.2200 8.5-10.1 mg/dL Low CA 8.2 LAB L501.5300 136-145 mmol/L NA Normal 139 LAB L501.5600 3.5-5.1 mmol/L K Normal 4.1 LAB L501.5900 98-107 mmol/L CL Normal 103 LAB L501.6100 21.0-32.0 mmol/L Normal CO2 30.0 LAB L501.6200 5-15 Normal GAP 6 Performed By: #### L500.2500 #### [facility] [address] [place], [address] BASIC METABOLIC Collected: 02/17/2018 Status: F Source: [place] PROFILE ([facility]) 5:00 AM [facility] [place] [facility] Order Comment: 127/2 TYPE CODE TESTS RESULT OUT OF RANGE REFERENCE UNITS LAB L501.0100 74-106 mg/dL Normal GLU 87 Result Comment: Please note revised GLUCOSE reference range effective 2017. LAB L501.1000 7-18 mg/dL High BUN 25 LAB L501.1100 0.55-1.02 mg/dL High CREAT,SERUM 1.24 Result Comment: The validity of the calculated GFR AND GFRAA in patients over 70 years has not been determined. Clinical correlation is essential. LAB L501.1110 >60 mL/min Low EST GFR 44 Result Comment: Non- GFR Calc LAB L501.1115 >60 mL/min Low EST GFR - AA 53 Result Comment: GFR Calc LAB L501.1300 10-20 RATIO High BUN/CRE 20.2 LAB L501.2200 8.5-10.1 mg/dL Low CA 8.3 LAB L501.5300 136-145 mmol/L NA Normal 140 LAB L501.5600 3.5-5.1 mmol/L K Normal 4.3 Result Comment: Slight Hemolysis, Result may be falsely increased. LAB L501.5900 98-107 mmol/L Normal CL 102 LAB L501.6100 21.0-32.0 mmol/L Normal CO2 30.0 LAB L501.6200 5-15 Normal 8 GAP Performed By: #### L500.2500 #### [facility] [address] [place], [address] BASIC METABOLIC Collected: 02/03/2018 Status: F Source: [place] PROFILE (BMP) 5:05 AM [facility] [place] [facility] Order Comment: 127/2 TYPE CODE TESTS RESULT OUT OF RANGE REFERENCE UNITS LAB L501.0100 74-106 mg/dL Low GLU 64 Result Comment: Please note revised GLUCOSE reference range effective 2017. LAB L501.1000 7-18 mg/dL High BUN 20 LAB L501.1100 0.55-1.02 mg/dL High CREAT,SERUM 1.44 Result Comment: The validity of the calculated GFR AND GFRAA in patients over 70 years has not been determined. Clinical correlation is essential. LAB L501.1110 >60 mL/min Low EST GFR 37 Result Comment: Non- GFR Calc LAB L501.1115 >60 mL/min Low EST GFR - AA 45 Result Comment: GFR Calc LAB L501.1300 10-20 RATIO Normal BUN/CRE 13.9 LAB L501.2200 8.5-10.1 mg/dL CA Normal 8.6 LAB L501.5300 136-145 mmol/L NA Normal 140 LAB L501.5600 3.5-5.1 mmol/L K Normal 4.6 LAB L501.5900 98-107 mmol/L CL Normal 102 LAB L501.6100 21.0-32.0 mmol/L Normal CO2 30.0 LAB L501.6200 5-15 Normal GAP 8 Performed By: #### L500.2500, L500.4100, L501.9520 #### [facility] [address] [place], [place], [address] LIPID PROFILE Collected: 02/03/2018 Status: F Source: [place] 5:05 AM [facility] [place] [facility] Order Comment: 127/2 TYPE CODE TESTS RESULT OUT OF RANGE REFERENCE UNITS LAB L501.4900 200 mg/dL Normal CHOL 110 Result Comment: <200 mg/dL Desirable 200-240 mg/dL Borderline >240 mg/dL High Risk LAB L501.5000 mg/dL Normal TRIG 55 Result Comment: The drugs N-Acetylcysteine and Metamizole may falsely depress this assay. Serum Triglycerides Reference Interval Normal <150 mg/dL Borderline high 150 - 199 mg/dL High 200 - 499 mg/dL Very High > or = 500 mg/dL LAB L501.6400 mg/dL Normal HDL 47 Result Comment: The drugs N-Acetylcysteine and Metamizole may falsely depress this assay. Reference Range HDL <40 mg/dL Low HDL Cholesterol HDL >or= 60 mg/dL High HDL Cholesterol LAB L501.6500 0-130 mg/dL Normal LDL 52 LAB L501.6600 5-40 mg/dL Normal VLDL 11 Performed By: #### L500.2500, L500.4100, L501.9520 #### [facility] [address] [place], [place], [address] THYROID STIM HORMONE Collected: 02/03/2018 Status: F Source: [place] ([facility]) 5:05 AM [facility] [place] [facility] Order Comment: 127/2 TYPE CODE TESTS RESULT OUT OF RANGE REFERENCE UNITS LAB L501.9520 0.358-3.74 uIU/mL Low TSH 0.16 Performed By: #### L500.2500, L500.4100, L501.9520 #### [facility] [address] [place], [place], [address] BASIC METABOLIC Collected: 01/20/2018 Status: F Source: [facility] PROFILE (BMP) 5:10 AM [facility] [place] [facility] TYPE CODE TESTS RESULT OUT OF RANGE REFERENCE UNITS LAB L501.0100 74-106 mg/dL Normal GLU 84 Result Comment: Please note revised GLUCOSE reference range effective 2017. LAB L501.1000 7-18 mg/dL High BUN 21 LAB L501.1100 0.55-1.02 mg/dL High CREAT,SERUM 1.51 Result Comment: The validity of the calculated GFR AND GFRAA in patients over 70 years has not been determined. Clinical correlation is essential. LAB L501.1110 >60 mL/min Low EST GFR 35 Result Comment: Non- GFR Calc LAB L501.1115 >60 mL/min Low EST GFR - AA 43 Result Comment: GFR Calc LAB L501.1300 10-20 RATIO Normal BUN/CRE 13.9 LAB L501.2200 8.5-10.1 mg/dL CA Normal 8.5 LAB L501.5300 136-145 mmol/L NA Normal 140 LAB L501.5600 3.5-5.1 mmol/L Low K 3.4 LAB L501.5900 98-107 mmol/L CL Normal 103 LAB L501.6100 21.0-32.0 mmol/L Normal CO2 32.0 LAB L501.6200 5-15 Normal GAP 5 Performed By: #### L500.2500 #### [facility] [address] [place], [place], [address] SURGERY VISIT REPORT Observed: 01/16/2018 Status: F Source: [place] 4:34 PM [facility] [place] [facility] [address] [place] [address] OFFICE VISIT Date of Service: 01/16/18 MR#: [id number] Acct: [id number] Name: XI BAKER Carole Rep #: [id number] : 1935 Provider: Brittnee Queen PA-C Age/Sex: 82/F Location: [facility] Status: Signed Intake Intake Visit Reasons: S/R Skin Lesion L Cheek X2 RC 01/11 Chief Complaint: excision skin lesion face x2 Assistant Director Of Admissions Required: No Is patient in pain?: No Allergies codeine Allergy (Mild, Verified 01/16/18 08:09) Itching ibuprofen Allergy (Mild, Verified 01/16/18 08:09) Nausea/Vom/Diarrhea lisinopril Allergy (Mild, Verified 01/16/18 08:09) Itching tramadol Allergy (Mild, Verified 01/16/18 08:09) Rash bacitracin [From Neosporin Plus PainRelief(lita)] Adverse Reaction (Severe, Verified 01/16/18 08:09) Unknown neomycin [From Neosporin Plus PainRelief(lita)] Adverse Reaction (Severe, Verified 01/16/18 08:09) Unknown polymyxin B [From Neosporin Plus PainRelief(lita)] Adverse Reaction (Severe, Verified 01/16/18 08:09) Unknown pramoxine [From Neosporin Plus PainRelief(lita)] Adverse Reaction (Severe, Verified 01/16/18 08:09) Unknown prednisone Adverse Reaction (Severe, Verified 01/16/18 08:09) Unknown acetaminophen [From Darvocet-N 100] Adverse Reaction (Mild, Verified 01/16/18 08:09) Other alendronate sodium [From Fosamax] Adverse Reaction (Mild, Verified 01/16/18 08:09) Other morphine Adverse Reaction (Mild, Verified 01/16/18 08:09) Itching propoxyphene napsylate [From Darvocet-N 100] Adverse Reaction (Mild, Verified 01/16/18 08:09) Other contrast dye Adverse Reaction (Severe, Uncoded 01/16/18 08:09) Renal impairment Medications Potassium Chloride [K-Dur] 20 meq PO DAILY 11/14/15 [History Confirmed 01/16/18] Amiodarone HCl [Cordarone] 200 mg PO DAILY 04/20/16 [History Confirmed 01/16/18] Levothyroxine [Synthroid] 88 mcg PO DAILY 04/20/16 [History Confirmed 01/16/18] Atorvastatin Calcium [Lipitor] 40 mg PO QHS 03/20/17 [History Confirmed 01/16/18] Donepezil HCl 5 mg PO QHS 03/20/17 [History Confirmed 01/16/18] Metoprolol Tartrate [Lopressor (beta ines)] 12.5 mg PO BID 03/20/17 [History Confirmed 01/16/18] Multivitamin [Daily Multiple Vitamin] 1 ea PO DAILY 03/20/17 [History Confirmed 01/16/18] Vit C/E/Zn/Coppr/Lutein/Zeaxan [Preservision Areds 2 Softgel] 1 ea PO DAILY 03/20/17 [History Confirmed 01/16/18] Calcitonin,[place],Synthetic [Calcitonin-[place]] 3.7 ml NS DAILY #1 spray.pump 03/27/17 [Rx Confirmed 01/16/18] Calcium Carb/Vitamin D [Os-Jakob 500MG + D] 1 tab PO BIDCM 03/27/17 [History Confirmed 01/16/18] Escitalopram Oxalate [Lexapro] 5 mg PO DAILY 03/27/17 [History Confirmed 01/16/18] Furosemide [Lasix] 20 mg PO DAILY 03/27/17 [History Confirmed 01/16/18] Hydrocortisone 2.5% Crm [Hytone] 1 applic TOPICAL BID@0600,2200 03/27/17 [History Confirmed 01/16/18] Iron Polysaccharide Complex [Ferrex 150] 150 mg PO DAILYCM 03/27/17 [History Confirmed 01/16/18] Senna/Docusate Sodium [Senokot-S] 2 tab PO DAILY 03/27/17 [History Confirmed 01/16/18] Acetaminophen [Tylenol] 1,000 mg PO Q8H PRN PRN tab 04/17/17 [Rx Confirmed 01/16/18] Bisacodyl [Dulcolax] 10 mg PO DAILY PRN tab 04/17/17 [Rx Confirmed 01/16/18] Menthol/Lanolin/Calamine/Znox [Calmoseptine Ointment] 1 applic TOPICAL BID tube 04/17/17 [Rx Confirmed 01/16/18] Nystatin Powder [Mycostatin Powder] 1 applic TOPICAL BID bottle 04/17/17 [Rx Confirmed 01/16/18] carbidopa 25 mg-levodopa 100 mg tablet 1 tab PO TID 12/31/17 [History Confirmed 01/16/18] fluorometholone 0.25 % eye drops,suspension 1 drp OPHTHALMIC Q6H 12/31/17 [History Confirmed 01/16/18] polyethylene glycol 3350 17 gram/dose oral powder PO 12/31/17 [History Confirmed 01/16/18] rivaroxaban 15 mg tablet 15 mg PO QPM 12/31/17 [History Confirmed 01/16/18] Subjective Details: Patient is an 82 y/o female I am following for left cheek skin lesion. Dr. Leigh performed an excision of the left cheek lesion on 01/11/18. Patient tolerated the procedure well. Pathology demonstrated a squamous cell skin cancer, completely removed. PAtient notes very minimal amount of discomfort. Objective Details: Left cheek- incision c/d/i. No erythema or infection. Minimal amount of ecchymosis. Sutures were completely removed. Dermabond placed Assessment AND Plan Problems 1. 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 Plan - Follow-up as needed Coding Level of Care Code Global Post Op Diagnoses 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 01/16/18 1634 <Electronically signed by Brittnee Queen PA-C> Date Brittnee Queen PA-C Cosigner Signature: Date (if applicable) CC: SURGERY VISIT REPORT Observed: 01/14/2018 Status: F Source: [place] 6:09 PM [facility] [place] [facility] [address] [place] [address] [address] [place] [address] OFFICE VISIT Date of Service: 01/11/18 MR#: [id number] Acct: [id number] Name: XI BAKER Rep #: [id number] : 1935 Provider: Ranjit Leigh MD Age/Sex: 82/F Location: [facility] Status: Signed Intake Intake Visit Reasons: Excision of left cheek lesions x2 Chief Complaint: excision skin lesion face x2 Assistant Director Of Admissions Required: No Is patient in pain?: No Allergies codeine Allergy (Mild, Verified 01/11/18 08:49) Itching ibuprofen Allergy (Mild, Verified 01/11/18 08:49) Nausea/Vom/Diarrhea lisinopril Allergy (Mild, Verified 01/11/18 08:49) Itching tramadol Allergy (Mild, Verified 01/11/18 08:49) Rash bacitracin [From Neosporin Plus PainRelief(lita)] Adverse Reaction (Severe, Verified 01/11/18 08:49) Unknown neomycin [From Neosporin Plus PainRelief(lita)] Adverse Reaction (Severe, Verified 01/11/18 08:49) Unknown polymyxin B [From Neosporin Plus PainRelief(lita)] Adverse Reaction (Severe, Verified 01/11/18 08:49) Unknown pramoxine [From Neosporin Plus PainRelief(lita)] Adverse Reaction (Severe, Verified 01/11/18 08:49) Unknown prednisone Adverse Reaction (Severe, Verified 01/11/18 08:49) Unknown acetaminophen [From Darvocet-N 100] Adverse Reaction (Mild, Verified 01/11/18 08:49) Other alendronate sodium [From Fosamax] Adverse Reaction (Mild, Verified 01/11/18 08:49) Other morphine Adverse Reaction (Mild, Verified 01/11/18 08:49) Itching propoxyphene napsylate [From Darvocet-N 100] Adverse Reaction (Mild, Verified 01/11/18 08:49) Other contrast dye Adverse Reaction (Severe, Uncoded 07/11/17 21:20) Renal impairment Medications Potassium Chloride [K-Dur] 20 meq PO DAILY 11/14/15 [History Confirmed 12/31/17] Amiodarone HCl [Cordarone] 200 mg PO DAILY 04/20/16 [History Confirmed 12/31/17] Levothyroxine [Synthroid] 88 mcg PO DAILY 04/20/16 [History Confirmed 12/31/17] Atorvastatin Calcium [Lipitor] 40 mg PO QHS 03/20/17 [History Confirmed 12/31/17] Donepezil HCl 5 mg PO QHS 03/20/17 [History Confirmed 12/31/17] Metoprolol Tartrate [Lopressor (beta ines)] 12.5 mg PO BID 03/20/17 [History Confirmed 12/31/17] Multivitamin [Daily Multiple Vitamin] 1 ea PO DAILY 03/20/17 [History Confirmed 12/31/17] Vit C/E/Zn/Coppr/Lutein/Zeaxan [Preservision Areds 2 Softgel] 1 ea PO DAILY 03/20/17 [History Confirmed 12/31/17] Calcitonin,[place],Synthetic [Calcitonin-[place]] 3.7 ml NS DAILY #1 spray.pump 03/27/17 [Rx Confirmed 12/31/17] Calcium Carb/Vitamin D [Os-Jakob 500MG + D] 1 tab PO BIDCM 03/27/17 [History Confirmed 12/31/17] Escitalopram Oxalate [Lexapro] 5 mg PO DAILY 03/27/17 [History Confirmed 12/31/17] Furosemide [Lasix] 20 mg PO DAILY 03/27/17 [History Confirmed 12/31/17] Hydrocortisone 2.5% Crm [Hytone] 1 applic TOPICAL BID@0600,2200 03/27/17 [History Confirmed 12/31/17] Iron Polysaccharide Complex [Ferrex 150] 150 mg PO DAILYCM 03/27/17 [History Confirmed 12/31/17] Senna/Docusate Sodium [Senokot-S] 2 tab PO DAILY 03/27/17 [History Confirmed 12/31/17] Acetaminophen [Tylenol] 1,000 mg PO Q8H PRN PRN tab 04/17/17 [Rx Confirmed 12/31/17] Bisacodyl [Dulcolax] 10 mg PO DAILY PRN tab 04/17/17 [Rx Confirmed 12/31/17] Menthol/Lanolin/Calamine/Znox [Calmoseptine Ointment] 1 applic TOPICAL BID tube 04/17/17 [Rx Confirmed 12/31/17] Nystatin Powder [Mycostatin Powder] 1 applic TOPICAL BID bottle 04/17/17 [Rx Confirmed 12/31/17] carbidopa 25 mg-levodopa 100 mg tablet 1 tab PO TID 12/31/17 [History Confirmed 12/31/17] fluorometholone 0.25 % eye drops,suspension 1 drp OPHTHALMIC Q6H 12/31/17 [History Confirmed 12/31/17] polyethylene glycol 3350 17 gram/dose oral powder PO 12/31/17 [History Confirmed 12/31/17] rivaroxaban 15 mg tablet 15 mg PO QPM 12/31/17 [History Confirmed 12/31/17] Is last menstrual period known: No Post menopausal: Yes Patient : No PFSH Medical History Skin lesion of face (Acute) Nonrheumatic tricuspid (valve) insufficiency (Chronic) Hyperlipidemia (Chronic) Hypertension (Chronic) Paroxysmal atrial fibrillation (Chronic) Dizziness and giddiness (Acute) Dyspnea on exertion (Acute) Syncope and collapse (Acute) Surgical History History of repair of hiatal hernia (Resolved) Hx laparoscopic cholecystectomy (Resolved) Family History Sister Breast cancer Social History Smoking Status: Never smoker alcohol intake: never substance use type: does not use what type of physical activity do you participate in: none seatbelt use: always HPI HPI HPI: XI BAKER, is a 82 F who presents to the office today for excision of 2 adjacent exophytic tender skin lesions of her left cheek Office Procedures Excision of Skin Provider Documentation Provider Documentation: Excision to adjacent skin lesions left cheek Timeout and informed consent was obtained. The patient was taken to procedure room. She has 2 adjacent exophytic skin lesions of the left cheek. There are arranged in a vertical location with the larger one being more inferior. The smaller one measures 4 mm in diameter and the larger ones 9 mm. 1% lidocaine mixed 50-50 with 0.5% Marcaine was used as a local anesthetic. Throughout the procedure total 16 cc was used. A vertical elliptical excision measuring 3 x 1.2 cm was used a combination excise both lesions. Hemostasis was obtained with interrupted 4-0 chromic. Subdermal tissues approximately the same. Skin edges were approximated with simple sutures and mattress sutures of 5-0 nylon. Telfa and tape dressing applied. She was given activity wound care instructions. She is scheduled to return to the office in 5 days time for wound inspection and anticipated suture removal. The specimen is submitted in formalin for analysis. Progress and prognosis are felt to be good. Ranjit Leigh M.D., F.A.C.S. Alert Milly Alert Billing: Yes [facility] [place] Procedure Procedure Performed By: Procedure performed by: Ranjit Leigh Details See other note Francis Procedure Time Out Time Out Informed consent given: Yes Consent signed: Yes Time out checklist: patient, procedure, site marked/identified, positioning of patient, supplies available, allergies confirmed, team agrees on procedure Time out staff in room: Yes Time out verified: Yes Time out date: 01/11/18 Time out time: 08:50 Assessment AND Plan Plan Simultaneous excision 2 skin lesions left cheek. Pathology pending. Office follow-up for suture removal scheduled. Ranjit Leigh M.D., F.A.C.S. Orders Orders: Coding Level of Care Code Attention Milly Comment [id number] 01/14/181808 <Electronically signed by Ranjit Leigh MD> Date Ranjit Leigh MD Cosigner Signature: Date (if applicable) CC: LESION (CHOOSE SITE) Observed: 01/11/2018 Status: F Source: [place] 8:50 AM [facility] [place] Patient: XI BAKER : 1935 (/F) Acct Num: [id number] Phys: Lu ADAMS,Ranjit Unit Num: [id number] Loc: LABSPEC Specimen: [id number] Received: 01/13/18719 Spec Type: Lesion TISSUES 1 TISSUES: Cheek, NOS COMMENT Case has been reviewed in consultation with Dr. Medina who concurs with the above diagnosis. IDC:AM GROSS DESCRIPTION Received in fixative is one container labeled with the patient's name and designated left cheek. The specimen consists of an ellipse of light hawthorne excised skin measuring 3 x 1 x 0.5 cm. The cutaneous surface displays an exophytic hawthorne lesion measuring 1 cm in greatest dimension. A suture is present at one tip. This tip and corresponding half is inked in blue ink. The opposite half is inked in black ink. The specimen is serially sectioned and totally submitted in two cassettes as follows: 1 - tips and uninvolved skin, 2 - lesion. / AM:bubba 01/13/18 TC:0 CPT: 49957 HEADER OPERATION: Excision left cheek lesion PRE-OP DIAGNOSIS: Uncertain neoplasm face TISSUE SUBMITTED: Left cheek vertical ellipse, suture mathis inferior aspect MICROSCOPIC DESCRIPTION Slides are reviewed. 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 Actinic keratosis and solar elastosis. Perineural invasion is not seen. SJ:bubba 01/14/18 Signed Marcin Barksdalein 01/14/18 <signature on file> Performed By: #### PLES #### [facility] [address] [place], [address] NCS AND/OR EMG Observed: 01/07/2018 Status: F Source: TENDOY PATIENT 11:02 AM [facility] [place] [facility] Pulmonary Services/Neurology [address] [place] [address] MR#: [id number] Acct: [id number] Name: XI BAKER Rep #: [id number] : 1935 82 From: Koby Chapman MD Referring Dr: Christi Baker MD Status: REG CLI Ordering Dr: Date: Location: [facility] Sex: F C NCS and/or EMG Patient Report Ordering Doctor: Sang Baker DATE OF SERVICE: 01/07/18 This is a bilateral lower extremity nerve conduction study and a right lower extremity EMG performed on this 82-year-old female with a history of pain in her right lower extremity. There is a history of ankle fracture and increased pain to sensation on examination of her foot. She also has a history of back pain but she says this is nonradiating. Bilateral lower extremity sensory and motor nerve conduction study is performed. The sural sensory response on the right is not obtainable, on the left it is normal. The right peroneal motor response is not obtainable, on the left side the peroneal motor latency is mildly prolonged with mild reduction of amplitude and slowing of conduction velocity. The right peroneal motor response proximally demonstrates low amplitude. The bilateral tibial motor distal latencies are prolonged with mild reduction of amplitude and slowing of conduction velocities. The tibial motor and peroneal motor F-wave latencies are prolonged and the right tibial H reflex response is reduced in amplitude. Right lower extremity needle electromyography is performed. Muscles evaluated included the extensor digitorum brevis, abductor halitosis, medial gastrocnemius, anterior tibialis, vastus medialis and vastus lateralis muscles. Muscles demonstrated early recruitment and large motor unit amplitude distally, this abnormality resolved more proximally. There is no radicular or mononeuropathy pattern. 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 There is no evidence of radiculopathy. 01/07/18 1102 <Electronically signed by Koby Chapman MD> Date Koby Chapman MD CC: Christi Baker MD; Presley Leigh III, MD; Koby Chapman MD Date Dictated: 01/07/18 1050 Date Transcribed: 01/07/181049 [employer]: NF Signed BASIC METABOLIC Collected: 01/06/2018 Status: F Source: ANDER PROFILE ([facility]) 5:10 AM [facility] [place] TYPE CODE TESTS RESULT OUT OF RANGE REFERENCE UNITS LAB L501.0100 74-106 mg/dL Normal GLU 81 Result Comment: Please note revised GLUCOSE reference range effective 2017. LAB L501.1000 7-18 mg/dL High BUN 28 LAB L501.1100 0.55-1.02 mg/dL High CREAT,SERUM 1.60 Result Comment: The validity of the calculated GFR AND GFRAA in patients over 70 years has not been determined. Clinical correlation is essential. LAB L501.1110 >60 mL/min Low EST GFR 33 Result Comment: Non- GFR Calc LAB L501.1115 >60 mL/min Low EST GFR - AA 40 Result Comment: GFR Calc LAB L501.1300 10-20 RATIO Normal BUN/CRE 17.5 LAB L501.2200 8.5-10.1 mg/dL Low CA 8.3 LAB L501.5300 136-145 mmol/L NA Normal 143 LAB L501.5600 3.5-5.1 mmol/L K Normal 3.9 LAB L501.5900 98-107 mmol/L CL Normal 105 LAB L501.6100 21.0-32.0 mmol/L Normal CO2 32.0 LAB L501.6200 5-15 Normal GAP 6 Performed By: #### L500.2500 #### [facility] [address] [place], [address] CBC-COMPLETE BLOOD CNT Collected: 01/06/2018 Status: F Source: ANDER NO DIFF 5:10 AM [facility] [place] TYPE CODE TESTS RESULT OUT OF RANGE REFERENCE UNITS LAB L100.1000 4.4-11.0 K/mm3 Normal WBC 5.0 LAB L100.1200 4.2-5.4 M/mm3 Low RBC 3.56 LAB L100.1300 12.0-15.0 g/dl Low HGB 10.9 LAB L100.1400 37-47 % Low HCT 35.5 LAB L100.1500 81-99 fL High MCV 99.7 LAB L100.1600 27.0-32.0 pg Normal MCH 30.6 LAB L100.1700 32-36 g/gl Low MCHC 30.7 LAB L100.1810 11.6-14.6 % Normal RDW CV 13.9 LAB L100.1820 35.1-43.9 fl High RDW SD 50.8 LAB L100.1900 150-450 K/mm3 Low PLT 135 LAB L100.2000 6.2-12.0 fl Normal MPV 11.9 Performed By: #### L100.0500 #### [facility] [address] [place], [address] SURGERY VISIT REPORT Observed: 12/31/2017 Status: F Source: ANDER 1:40 PM [facility] [place] [facility] [address] [place] [address] OFFICE VISIT Date of Service: 12/31/17 MR#: [id number] Acct: [id number] Name: XI BAKER Rep #: [id number] : 1935 Provider: Ranjit Leigh MD Age/Sex: 82/F Location: [facility] Status: Signed Intake Intake Visit Reasons: Face Lump Consult Allergies codeine Allergy (Mild, Verified 07/11/17 21:20) Itching ibuprofen Allergy (Mild, Verified 07/11/17 21:20) Nausea/Vom/Diarrhea lisinopril Allergy (Mild, Verified 07/11/17 21:20) Itching tramadol Allergy (Mild, Verified 07/11/17 21:20) Rash bacitracin [From Neosporin Plus PainRelief(lita)] Adverse Reaction (Severe, Verified 07/11/17 21:20) Unknown neomycin [From Neosporin Plus PainRelief(lita)] Adverse Reaction (Severe, Verified 07/11/17 21:20) Unknown polymyxin B [From Neosporin Plus PainRelief(lita)] Adverse Reaction (Severe, Verified 07/11/17 21:20) Unknown pramoxine [From Neosporin Plus PainRelief(lita)] Adverse Reaction (Severe, Verified 07/11/17 21:20) Unknown prednisone Adverse Reaction (Severe, Verified 07/11/17 21:20) Unknown acetaminophen [From Darvocet-N 100] Adverse Reaction (Mild, Verified 07/11/17 21:20) Other alendronate sodium [From Fosamax] Adverse Reaction (Mild, Verified 07/11/17 21:20) Other morphine Adverse Reaction (Mild, Verified 07/11/17 21:20) Itching propoxyphene napsylate [From Darvocet-N 100] Adverse Reaction (Mild, Verified 07/11/17 21:20) Other contrast dye Adverse Reaction (Severe, Uncoded 07/11/17 21:20) Renal impairment Medications Potassium Chloride [K-Dur] 20 meq PO DAILY 11/14/15 [History Confirmed 12/31/17] Amiodarone HCl [Cordarone] 200 mg PO DAILY 04/20/16 [History Confirmed 12/31/17] Levothyroxine [Synthroid] 88 mcg PO DAILY 04/20/16 [History Confirmed 12/31/17] Atorvastatin Calcium [Lipitor] 40 mg PO QHS 03/20/17 [History Confirmed 12/31/17] Donepezil HCl 5 mg PO QHS 03/20/17 [History Confirmed 12/31/17] Metoprolol Tartrate [Lopressor (beta ines)] 12.5 mg PO BID 03/20/17 [History Confirmed 12/31/17] Multivitamin [Daily Multiple Vitamin] 1 ea PO DAILY 03/20/17 [History Confirmed 12/31/17] Vit C/E/Zn/Coppr/Lutein/Zeaxan [Preservision Areds 2 Softgel] 1 ea PO DAILY 03/20/17 [History Confirmed 12/31/17] Calcitonin,[place],Synthetic [Calcitonin-[place]] 3.7 ml NS DAILY #1 spray.pump 03/27/17 [Rx Confirmed 12/31/17] Calcium Carb/Vitamin D [Os-Jakob 500MG + D] 1 tab PO BIDCM 03/27/17 [History Confirmed 12/31/17] Escitalopram Oxalate [Lexapro] 5 mg PO DAILY 03/27/17 [History Confirmed 12/31/17] Furosemide [Lasix] 20 mg PO DAILY 03/27/17 [History Confirmed 12/31/17] Hydrocortisone 2.5% Crm [Hytone] 1 applic TOPICAL BID@0600,2200 03/27/17 [History Confirmed 12/31/17] Iron Polysaccharide Complex [Ferrex 150] 150 mg PO DAILYCM 03/27/17 [History Confirmed 12/31/17] Senna/Docusate Sodium [Senokot-S] 2 tab PO DAILY 03/27/17 [History Confirmed 12/31/17] Acetaminophen [Tylenol] 1,000 mg PO Q8H PRN PRN tab 04/17/17 [Rx Confirmed 12/31/17] Bisacodyl [Dulcolax] 10 mg PO DAILY PRN tab 04/17/17 [Rx Confirmed 12/31/17] Menthol/Lanolin/Calamine/Znox [Calmoseptine Ointment] 1 applic TOPICAL BID tube 04/17/17 [Rx Confirmed 12/31/17] Nystatin Powder [Mycostatin Powder] 1 applic TOPICAL BID bottle 04/17/17 [Rx Confirmed 12/31/17] carbidopa 25 mg-levodopa 100 mg tablet 1 tab PO TID 12/31/17 [History Confirmed 12/31/17] fluorometholone 0.25 % eye drops,suspension 1 drp OPHTHALMIC Q6H 12/31/17 [History Confirmed 12/31/17] polyethylene glycol 3350 17 gram/dose oral powder PO 12/31/17 [History Confirmed 12/31/17] rivaroxaban 15 mg tablet 15 mg PO QPM 12/31/17 [History Confirmed 12/31/17] PFSH Medical History Skin lesion of face (Acute) Nonrheumatic tricuspid (valve) insufficiency (Chronic) Hyperlipidemia (Chronic) Hypertension (Chronic) Paroxysmal atrial fibrillation (Chronic) Dizziness and giddiness (Acute) Dyspnea on exertion (Acute) Syncope and collapse (Acute) Surgical History History of repair of hiatal hernia (Resolved) Hx laparoscopic cholecystectomy (Resolved) Family History Sister Breast cancer Social History Smoking Status: Never smoker alcohol intake: never substance use type: does not use what type of physical activity do you participate in: none seatbelt use: always HPI HPI HPI: XI BAKER, is a 82 F who presents to the office today for concerned about a several month history of a exophytic tender skin lesion of the left cheek with newer onset of a secondary lesion superior to it. She currently resides in a correction. She has atrial fibrillation. She is on Xarelto. Exam HENMT Other: Left inferior cheek: 4 mm diameter exophytic keratotic lesion more inferiorly by a more dominant 9 mm diameter exophytic lesion with a central keratotic horn Assessment AND Plan Problems 1. Skin lesion of face L98.9 Plan I have concerns that this may be a keratoacanthoma possibly evolving into a squamous cell carcinoma. I am recommending a vertical elliptical simultaneous excision of both lesions. I discussed the technique, benefits, risks, alternatives. She has had an opportunity to ask and have questions answered. We will have her hold her Xarelto one day prior to the procedure. I believe that I can nicely accomplish this under local anesthetic in an office procedural setting. I very much appreciate the ongoing opportunity of assisting with her surgical care. Ranjit Leigh M.D., F.A.C.S. Cc: Dr. DOMINICK Escobar Medications Discontinued: ondansetron Discontinued Reason: Pt no longer tak4 mg PO Q8H PRN PRN Nausea/Vomiting ing Coding Level of Care Code Off vis,new,level 1 Diagnoses Skin lesion of face L98.9 12/31/17 1340 <Electronically signed by Ranjit Leigh MD> Date Ranjit Leigh MD Cosigner Signature: Date (if applicable) CC: Stephen Escobar MD BASIC METABOLIC Collected: 12/24/2017 Status: F Source: ANDER PROFILE ([facility]) 7:50 AM [facility] [place] TYPE CODE TESTS RESULT OUT OF RANGE REFERENCE UNITS LAB L501.0100 74-106 mg/dL Normal GLU 80 Result Comment: Please note revised GLUCOSE reference range effective 2017. LAB L501.1000 7-18 mg/dL High BUN 19 LAB L501.1100 0.55-1.02 mg/dL High CREAT,SERUM 1.46 Result Comment: The validity of the calculated GFR AND GFRAA in patients over 70 years has not been determined. Clinical correlation is essential. LAB L501.1110 >60 mL/min Low EST GFR 37 Result Comment: Non- GFR Calc LAB L501.1115 >60 mL/min Low EST GFR - AA 44 Result Comment: GFR Calc LAB L501.1300 10-20 RATIO Normal BUN/CRE 13.0 LAB L501.2200 8.5-10.1 mg/dL Low CA 8.4 LAB L501.5300 136-145 mmol/L NA Normal 145 LAB L501.5600 3.5-5.1 mmol/L K Normal 4.0 LAB L501.5900 98-107 mmol/L CL Normal 104 LAB L501.6100 21.0-32.0 mmol/L Normal CO2 31.0 LAB L501.6200 5-15 Normal GAP 10 Performed By: #### L500.2500 #### [facility] [place], [address] BASIC METABOLIC Collected: 12/09/2017 Status: F Source: ANDER PROFILE ([facility]) 5:45 AM [facility] [place] Order Comment: ROOM 127 TYPE CODE TESTS RESULT OUT OF RANGE REFERENCE UNITS LAB L501.0100 74-106 mg/dL Normal GLU 82 Result Comment: Please note revised GLUCOSE reference range effective 2017. LAB L501.1000 7-18 mg/dL High BUN 23 LAB L501.1100 0.55-1.02 mg/dL High CREAT,SERUM 1.42 Result Comment: The validity of the calculated GFR AND GFRAA in patients over 70 years has not been determined. Clinical correlation is essential. LAB L501.1110 >60 mL/min Low EST GFR 38 Result Comment: Non- GFR Calc LAB L501.1115 >60 mL/min Low EST GFR - AA 46 Result Comment: GFR Calc LAB L501.1300 10-20 RATIO Normal BUN/CRE 16.2 LAB L501.2200 8.5-10.1 mg/dL Low CA 8.4 LAB L501.5300 136-145 mmol/L NA Normal 145 LAB L501.5600 3.5-5.1 mmol/L K Normal 4.3 LAB L501.5900 98-107 mmol/L CL Normal 105 LAB L501.6100 21.0-32.0 mmol/L Normal CO2 30.0 LAB L501.6200 5-15 Normal GAP 10 Performed By: #### L500.2500 #### [facility] [address] [place], [address] BASIC METABOLIC Collected: 11/25/2017 Status: F Source: TENDOY PROFILE ([facility]) 5:30 AM [facility] [place] Order Comment: 127-2 TYPE CODE TESTS RESULT OUT OF RANGE REFERENCE UNITS LAB L501.0100 74-106 mg/dL Normal GLU 83 Result Comment: Please note revised GLUCOSE reference range effective 2017. LAB L501.1000 7-18 mg/dL High BUN 24 LAB L501.1100 0.55-1.02 mg/dL High CREAT,SERUM 1.55 Result Comment: The validity of the calculated GFR AND GFRAA in patients over 70 years has not been determined. Clinical correlation is essential. LAB L501.1110 >60 mL/min Low EST GFR 34 Result Comment: Non- GFR Calc LAB L501.1115 >60 mL/min Low EST GFR - AA 41 Result Comment: GFR Calc LAB L501.1300 10-20 RATIO Normal BUN/CRE 15.5 LAB L501.2200 8.5-10.1 mg/dL Low CA 8.2 LAB L501.5300 136-145 mmol/L NA Normal 144 LAB L501.5600 3.5-5.1 mmol/L K Normal 3.9 LAB L501.5900 98-107 mmol/L CL Normal 104 LAB L501.6100 21.0-32.0 mmol/L Normal CO2 32.0 LAB L501.6200 5-15 Normal GAP 8 Performed By: #### L500.2500 #### [facility] [address] [place], [place], [address] BASIC METABOLIC Collected: 11/11/2017 Status: F Source: ANDER PROFILE ([facility]) 8:10 AM [facility] [place] Order Comment: ROOM 127 TYPE CODE TESTS RESULT OUT OF RANGE REFERENCE UNITS LAB L501.0100 74-106 mg/dL Normal GLU 86 Result Comment: Please note revised GLUCOSE reference range effective 2017. LAB L501.1000 7-18 mg/dL Normal BUN 15 LAB L501.1100 0.55-1.02 mg/dL High CREAT,SERUM 1.26 Result Comment: The validity of the calculated GFR AND GFRAA in patients over 70 years has not been determined. Clinical correlation is essential. LAB L501.1110 >60 mL/min Low EST GFR 43 Result Comment: Non- GFR Calc LAB L501.1115 >60 mL/min Low EST GFR - AA 52 Result Comment: GFR Calc LAB L501.1300 10-20 RATIO Normal BUN/CRE 11.9 LAB L501.2200 8.5-10.1 mg/dL CA Normal 8.7 LAB L501.5300 136-145 mmol/L NA Normal 143 LAB L501.5600 3.5-5.1 mmol/L K Normal 4.4 LAB L501.5900 98-107 mmol/L CL Normal 104 LAB L501.6100 21.0-32.0 mmol/L High CO2 33.0 LAB L501.6200 5-15 Normal GAP 6 Performed By: #### L500.2500 #### [facility] [address] [place], [place], [address] BASIC METABOLIC Collected: 10/30/2017 Status: F Source: ANDER PROFILE ([facility]) 5:17 AM [facility] [place] [facility] Order Comment: 127-2 TYPE CODE TESTS RESULT OUT OF RANGE REFERENCE UNITS LAB L501.0100 74-106 mg/dL Normal GLU 77 Result Comment: Please note revised GLUCOSE reference range effective 2017. LAB L501.1000 7-18 mg/dL High BUN 23 LAB L501.1100 0.55-1.02 mg/dL High CREAT,SERUM 1.51 Result Comment: The validity of the calculated GFR AND GFRAA in patients over 70 years has not been determined. Clinical correlation is essential. LAB L501.1110 >60 mL/min Low EST GFR 35 Result Comment: Non- GFR Calc LAB L501.1115 >60 mL/min Low EST GFR - AA 43 Result Comment: GFR Calc LAB L501.1300 10-20 RATIO Normal BUN/CRE 15.2 LAB L501.2200 8.5-10.1 mg/dL Low CA 8.4 LAB L501.5300 136-145 mmol/L NA Normal 141 LAB L501.5600 3.5-5.1 mmol/L K Normal 4.6 Result Comment: Slight Hemolysis, Result may be falsely increased. LAB L501.5900 98-107 mmol/L Normal CL 102 LAB L501.6100 21.0-32.0 mmol/L Normal CO2 32.0 LAB L501.6200 5-15 Normal 7 GAP Performed By: #### L500.2500 #### [facility] [address] [facility] [place], [place], [address] BRAIN WITH SPECT Observed: 10/29/2017 Status: F Source: [facility] 2:34 PM [facility] REPOSITORY Performed at [facility] APPROVED BY: JUAN ARCHER MD I-123-BRAIN DaTSCAN CLINICAL HISTORY: Parkinsonism. TECHNIQUE: The patient's medications and allergies were reviewed in electronic medical record and reconciled to the proposed procedure/treatment. The patient was pretreated with 4 drops of SSKI orally, followed by injection of 5 mCi I-123 Ioflupane, IV. SPECT images of the brain was acquired in 3-4 hour later. CORRELATION: None. RESULT: The tracer uptake in the caudate head and anterior striatum are symmetric. The uptake in the left caudate head and anterior striatum: normal. The uptake in the right caudate head and anterior striatum: normal. The tracer uptake in the putamen and posterior striatum are asymmetric. The uptake in the left putamen and posterior striatum: Mildly decreased. The uptake in the right putamen and posterior striatum: Mildly to moderately decreased. IMPRESSION: THE PATTERN OF THE TRACER UPTAKE SUGGEST GRADE 1 LOSS OF DOPAMINERGIC NEURONAL TERMINAL DENSITY IN THE STRIATUM (SEE REFERENCE BELOW). HOWEVER, THE IMAGING QUALITY IS LESS OPTIMAL DUE TO L ACK OF THE ADEQUATE ATTENUATION CORRECTION. REFERENCE: Shadi Black, MRCP ([place]), Jad Jessica, PhD, Gilberto Marquez, BSc, MD, FRCP Accurate Differentiation of Parkinsonism and Essential Tremor Using Visual Assessment of [123I]-FP-CIT SPEC T Imaging: The [123I]-FP-CIT Study Group. Movement Disorders Vol. 15, No. 3, 1999, pp. 503-510 PROGRESS Observed: 10/29/2017 Status: COMPLETED Source: [place] 11:21 AM [facility] REPOSITORY HNO ID: [id number] Author: Felisa Adames Service: (none) Author Type: Salesperson Men[employer]S Hats Type: Progress Notes Filed: 10/29/2017 11:23 AM Note Text: Spoke to [facility] Xi is receiving medical care Stephen Escobar MD. I will remove Dr. Leigh as her PCP. Felisa Adames MA PROGRESS Observed: 10/29/2017 Status: COMPLETED Source: FISHER 10:10 AM [facility] REPOSITORY HNO ID: [id number] Author: Felisa Adames Service: (none) Author Type: Salesperson [employer]S [employer]ats Type: Progress Notes Filed: 10/29/2017 11:23 AM Note Text: I have attempted to contact this patient by phone to return their call, schedule an appointment, discuss lab results, etc. Left message to call back. PROGRESS Observed: 10/25/2017 Status: COMPLETED Source: FISHER 9:31 AM [facility] REPOSITORY HNO ID: [id number] Author: Felisa Adames Service: (none) Author Type: Salesperson Men'S Hats Type: Progress Notes Filed: 10/29/2017 11:23 AM Note Text: Line was a fast busy. Will try again on Saturday. Felisa Adames MA PROGRESS Observed: 10/21/2017 Status: COMPLETED Source: FISHER 2:57 PM [facility] REPOSITORY HNO ID: [id number] Author: Felisa Adames Service: (none) Author Type: Salesperson Men'S Hats Type: Progress Notes Filed: 10/29/2017 11:23 AM Note Text: I have attempted to contact this patient by phone to return their call, schedule an appointment, discuss lab results, etc. Left message to call back. PROGRESS Observed: 10/18/2017 Status: COMPLETED Source: FISHER 3:29 PM [facility] REPOSITORY HNO ID: [id number] Author: Felisa Adames Service: (none) Author Type: Salesperson Men'S Hats Type: Progress Notes Filed: 10/29/2017 11:23 AM Note Text: PHMA TEAMLET DOCUMENTATION Provider Action/FYI: Patient needs appointment . For HCC PSR Action/FYI: Teamlet has identified patient by name and date of . Team:Dr. Hank Leigh III, MD, EBONY Sinclair, Felisa Adames MA, Annita Sánchez LPN, Sandhya Wang CMA, Nichole Connors PSR, ? Last Office Visit:08/23/2017 ? Next Office Visit: Visit date not found ? Last BP/Labs: Blood Pressure: Last 3 Encounter BP Readings: Date: BP: 03/18/2017 136/72 01/24/2017 114/74 12/12/2016 116/72 Lipids: Cholesterol, Total (mg/dL) Date Value 12/27/2016 152 11/22/2016 130 HDL Cholesterol (mg/dL) Date Value 12/27/2016 57 11/22/2016 58 LDL Cholesterol (mg/dL) Date Value 12/27/2016 76 11/22/2016 57 Triglyceride (mg/dL) Date Value 12/27/2016 94 11/22/2016 76 HGB A1C: No results found for: HBA1C TSH: TSH (uU/mL) Date Value 12/27/2016 0.884 01/12/2016 1.610 ) Care Gap: HCC Plan: ? Confirm PCP / Status ? Type of appointment needed: Follow-up December with Provider Lu ? Consultation Appointments: No patient outreach needed at this time ? Labs, HM and Immunization: Labs: CMP Lipids Felisa Adames MA CNPTOUTREACH Observed: 10/18/2017 Status: COMPLETED Source: FISHER 12:00 AM [facility] REPOSITORY Patient Outreach (FAMPWS) XI BAKER ([id number]) 1935 F Date Time Provider Department 10/18/17 FELISA ADAMES ([place]) FAMPWS During your visit today, we recorded the following information about you: Felisa Adames MA 10/29/2017 11:23 AM Signed PHMA TEAMLET DOCUMENTATION Provider Action/FYI: Patient needs appointment . For HCC PSR Action/FYI: Teamlet has identified patient by name and date of . Team:Dr. Hank Leigh III, MD, EBONY Sinclair, Felisa Adames MA, Annita Sánchez LPN, Sandhya Wang CMA, Nichole Connors PSR, ? Last Office Visit:08/23/2017 ? Next Office Visit: Visit date not found ? Last BP/Labs: Blood Pressure: Last 3 Encounter BP Readings: Date: BP: 03/18/2017 136/72 01/24/2017 114/74 12/12/2016 116/72 Lipids: Cholesterol, Total (mg/dL) Date Value 12/27/2016 152 11/22/2016 130 HDL Cholesterol (mg/dL) Date Value 12/27/2016 57 11/22/2016 58 LDL Cholesterol (mg/dL) Date Value 12/27/2016 76 11/22/2016 57 Triglyceride (mg/dL) Date Value 12/27/2016 94 11/22/2016 76 HGB A1C: No results found for: HBA1C TSH: TSH (uU/mL) Date Value 12/27/2016 0.884 01/12/2016 1.610 ) Care Gap: HCC Plan: ? Confirm PCP / Status ? Type of appointment needed: Follow-up December with Provider Lu ? Consultation Appointments: No patient outreach needed at this time ? Labs, HM and Immunization: Labs: CMP Lipids CHICO Hooker MA 10/29/2017 11:23 AM Signed I have attempted to contact this patient by phone to return their call, schedule an appointment, discuss lab results, etc. Left message to call back. Felisa Adames MA 10/29/2017 11:23 AM Signed Line was a fast busy. Will try again on Saturday. CHICO Hooker MA 10/29/2017 11:23 AM Signed I have attempted to contact this patient by phone to return their call, schedule an appointment, discuss lab results, etc. Left message to call back. Felisa Adames MA 10/29/2017 11:23 AM Signed Spoke to [facility] Xi is receiving medical care Stephen Escobar MD. I will remove Dr. Leigh as her PCP. Felisa Adames MA Allergies As of Date: 10/18/2017 Noted Allergy Reaction MORPHINE 12/19/2004 5 - Intolerance Comments: dizzy/ mental status change CODEINE 12/19/2004 9 - Itching DARVOCET A500 (PROPOXYPHENE N-HERSON*01/17/2005 Comments: deny skin FOSAMAX (ALENDRONATE SODIUM) 01/17/2005 8 - GI Upset IBUPROFEN 01/17/2005 8 - GI Upset LATEX 08/22/2010 2 - Rash LISINOPRIL 07/06/2008 3 - Cough PERCOCET (OXYCODONE-ACETAMINOPHEN)05/21/2006 Comments: my skin crawled TRAMADOL 08/22/2010 9 - Itching Date Reviewed: 03/18/2017 Reviewed by: Yamilex Atkins Ma - Fully Assessed Reason for Visit: PHMA/Care Gap Outreach [3605] Primary Visit Diagnosis:Hypothyroidism, unspecified type [E03.9] Other Visit Diagnoses:Hyperlipidemia LDL goal <100 [E78.5] Essential hypertension, benign [I10] CKD (chronic kidney disease) stage 4, GFR 15-29 ml/min ([facility]) [N18.4] Order(s):COMP METABOLIC PANEL [SQCMP] Order #: [id number] FUTURE LIPID PANEL BASIC [SQLIPB] Order #: [id number] FUTURE TSH BLD [SQTSH] Order #: [id number] FUTURE Prescriptions as of 10/18/2017 Sig: WARFARIN 2 MG TABLET Take 2mg on * WARFARIN 1 MG TABLET Take 2mg on * METOPROLOL TARTRATE 25 MG TAB* Take 0.5 tablets by mouth twi* LEVOTHYROXINE 88 MCG TABLET Take 1 tablet by mouth once d* AMIODARONE 200 MG TABLET Take 1 tablet by mouth once d* ATORVASTATIN 40 MG TABLET Take 1 tablet by mouth once d* POLYETHYLENE GLYCOL 3350 17 G* SENNOSIDES 8.6 MG-DOCUSATE SO* Take 1 tablet by mouth once d* BISACODYL 5 MG TABLET Take 1 tablet by mouth as nee* ESCITALOPRAM 5 MG TABLET Take 1 tablet by mouth once d* POLYSACCHARIDE IRON COMPLEX 1* Take 1 capsule by mouth once * DONEPEZIL 5 MG TABLET Take 1 tablet by mouth daily * BUPRENORPHINE 10 MCG/HOUR WEE* Apply 1 Patch as directed onc* POTASSIUM CHLORIDE ER 20 MEQ * Take 1 tablet by mouth once d* Problem List As Of Date 10/18/2017 Noted Resolved 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] INVALID FOR* ESOPHAGEAL REFLUX [K21.9] INVALID FOR* Diaphragmatic hernia without mention of obstruc*INVALID FOR*07/18/2015 Hypothyroidism [E03.9] INVALID FOR* Lumbago [M54.5] INVALID FOR*08/26/2013 Hyperlipidemia LDL goal <100 [E78.5] INVALID FOR* BENIGN HYPERTENSION [I10] INVALID FOR* SPINAL STENOSIS-LUMBAR [M48.061] INVALID FOR* LUMBOSACRAL SPONDYLOSIS [M47.817] INVALID FOR* PERS HX SKIN MALIGNANCY NEC [Z85.828] INVALID FOR* Acute gastritis without mention of hemorrhage [*INVALID FOR*07/20/2014 Adjustment disorder with depressed mood [F43.21]INVALID FOR*07/20/2014 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*INVALID FOR*08/26/2013 ABNORMAL LIVER FUNCTION STUDY [R94.5] INVALID FOR* Iron deficiency anemia secondary to blood loss *INVALID FOR*03/05/2014 Other chest pain [R07.89] INVALID FOR*08/26/2013 Humerus head fracture [S42.293A] INVALID FOR*08/26/2013 Essential vertigo [R42] INVALID FOR*07/20/2014 Jiang splints [S86.899A] INVALID FOR*08/26/2013 Arthritis of shoulder region, left [M19.012] INVALID FOR* 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] INVALID FOR* Skin cancer [C44.90] INVALID FOR* 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*INVALID FOR*05/08/2013 Atrial fibrillation [I48.91] INVALID FOR* Hand fracture, left [S62.92XA] INVALID FOR*08/26/2013 Humerus fracture [S42.309A] INVALID FOR*08/26/2013 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] INVALID FOR* Arthritis of shoulder region, right [M19.011] INVALID FOR* Peripheral neuropathy (HCC) [G62.9] INVALID FOR* Arthritis of right hip [M16.11] INVALID FOR* 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 *INVALID FOR* At high risk for falls [Z91.81] INVALID FOR* Iron deficiency anemia due to chronic blood los*INVALID FOR* CKD (chronic kidney disease) stage 4, GFR 15-29*INVALID FOR* Chronic anticoagulation [Z79.01] INVALID FOR* Abnormal weight loss [R63.4] INVALID FOR* Debility [R53.81] INVALID FOR* Gallstone pancreatitis [K85.10] INVALID FOR* Vertebral compression fracture (HCC) [DTZ0870] INVALID FOR* Physical debility [R53.81] INVALID FOR* Encounter Status:Closed by FELISA ADAMES on 10/29/17 PROTIME W/INR Collected: 10/07/2017 Status: F Source: ANDER FINGERSTICK 9:14 AM [facility] [place] TYPE CODE TESTS RESULT OUT OF REFERENCE UNITS RANGE LAB L9200.1001 11.9-14.4 SEC High PROTIME ISTAT 14.6 Result Comment: Reference Range 11.9 - 14.4 LAB L9200.2000 Normal INR ISTAT 1.20 Result Comment: Critical Value > 3.5 Performed By: #### L9200.0000 #### [facility] Point of Care [facility] [place] [address] IMMUNOFIXATION URINE Collected: 10/03/2017 Status: F Source: ANDER 2:40 PM [facility] [place] TYPE CODE TESTS RESULT OUT OF RANGE REFERENCE UNITS LAB L3600.4030 Normal DUSTY Urine Result Comment: TEST RESULT UNITS REF INTERVAL Protein Electro, Random Urine Protein,Total,Urine 12.1 mg/dL Not Estab. Albumin, U 18.1 % Gorzj-0-Caqqfsul, U 6.7 % Cuvoa-3-Ieeqhutk, U 12.1 % Beta Globulin, U 43.9 % Gamma Globulin, U 19.3 % M-Raul, % Not Observed % Not Observed Please note: Protein electrophoresis scan will follow via computer, mail, or solar installer technician delivery. PDF . Immunofixation, Urine DUSTY Interpretation:U No monoclonality detected. TESTING PERFORMED AT [facility]. ORIGINAL REPORT ON FILE IN LAB CONTAINS ADDITIONAL TEST SITE INFORMATION. Performed By: #### L3600.4030 #### [facility] (refer to report for specific site) refer to report for address and phone number PROTHROMBIN TIME W/INR Collected: 09/30/2017 Status: F Source: ANDER 5:50 AM [facility] [place] TYPE CODE TESTS RESULT OUT OF RANGE REFERENCE UNITS LAB L300.4150 11.7-14.9 SECONDS Normal PROTIME 14.7 LAB L300.4200 Normal INR 1.2 Performed By: #### L300.3900 #### [facility] [address] [place], [address] HEMOGLOBIN A1C Collected: 09/30/2017 Status: F Source: TENDOY 5:50 AM [facility] [place] TYPE CODE TESTS RESULT OUT OF RANGE REFERENCE UNITS LAB L501.9985 4.2-6.3 % Normal HGB A1C 4.7 Performed By: #### L501.9985 #### [facility] [address] [place], [place], [address] COMPREHENSIVE METABOLIC Collected: 09/30/2017 Status: F Source: ANDER KRUEGER 5:50 AM [facility] [place] [facility] Order Comment: Comments: Manganese, Plasma [id number] plasma RT TYPE CODE TESTS RESULT OUT OF RANGE REFERENCE UNITS LAB L501.0100 74-106 mg/dL Normal GLU 74 Result Comment: Please note revised GLUCOSE reference range effective 2017. LAB L501.1000 7-18 mg/dL Normal BUN 16 LAB L501.1100 0.55-1.02 mg/dL High CREAT,SERUM 1.08 Result Comment: The validity of the calculated GFR AND GFRAA in patients over 70 years has not been determined. Clinical correlation is essential. LAB L501.1110 >60 mL/min Low EST GFR 52 Result Comment: Non- GFR Calc LAB L501.1115 >60 mL/min Normal EST GFR - AA 63 Result Comment: GFR Calc LAB L501.1300 10-20 RATIO Normal BUN/CRE 14.8 LAB L501.1500 6.4-8.2 g/dL Low T PROT 5.4 LAB L501.1800 3.2-5.0 g/dL Low ALB 2.5 LAB L501.1950 2.2-4.2 g/dL Normal GLOB 2.9 LAB L501.2000 0.9-2.4 RATIO Normal A/G 0.9 LAB L501.2200 8.5-10.1 mg/dL Low CA 8.1 LAB L501.4100 15-37 U/L Normal AST 16 LAB L501.4305 45-117 U/L Normal ALK P 82 LAB L501.4405 13-56 U/L Normal ALT 14 LAB L501.4600 0.20-1.00 mg/dL T Normal BILI 0.40 LAB L501.5300 136-145 mmol/L NA Normal 141 LAB L501.5600 3.5-5.1 mmol/L K Normal 3.7 LAB L501.5900 98-107 mmol/L CL Normal 102 LAB L501.6100 21.0-32.0 mmol/L Normal CO2 30.0 LAB L501.6200 5-15 Normal GAP 9 Performed By: #### L500.4050, L501.3620, L501.9520, L505.7010 #### [facility] [address] [place], [address] CPK TOTAL, CREATINE Collected: 09/30/2017 Status: F Source: ANDER KINASE 5:50 AM [facility] [place] [facility] Order Comment: Comments: Manganese, Plasma [id number] plasma RT TYPE CODE TESTS RESULT OUT OF RANGE REFERENCE UNITS LAB L501.3620 26-192 U/L Low CPK TOTAL 22 Performed By: #### L500.4050, L501.3620, L501.9520, L505.7010 #### [facility] [facility] [place], [address] THYROID STIM HORMONE Collected: 09/30/2017 Status: F Source: ANDER (TSH) 5:50 AM [facility] [place] [facility] Order Comment: Comments: Manganese, Plasma [id number] plasma RT TYPE CODE TESTS RESULT OUT OF RANGE REFERENCE UNITS LAB L501.9520 0.358-3.74 uIU/mL Normal TSH 2.02 Performed By: #### L500.4050, L501.3620, L501.9520, L505.7010 #### [facility] [address] [place], [address] RHEUMATOID FACTOR Collected: 09/30/2017 Status: F Source: ANDER 5:50 AM [facility] [place] [facility] Order Comment: Comments: Manganese, Plasma [id number] plasma RT TYPE CODE TESTS RESULT OUT OF RANGE REFERENCE UNITS LAB L505.7010 <15 IU/mL Normal RHEUMATOID FAC < 10.0 Performed By: #### L500.4050, L501.3620, L501.9520, L505.7010 #### [facility] [address] [place], [address] VITAMIN B12 Collected: 09/30/2017 Status: F Source: ANDER 5:50 AM [facility] [place] [facility] TYPE CODE TESTS RESULT OUT OF RANGE REFERENCE UNITS LAB L503.0105 211-911 pg/mL Normal Vitamin B12 494 Performed By: #### L503.0105 #### [facility] [place], [address] COPPER, SERUM OR Collected: 09/30/2017 Status: F Source: ANDER PLASMA 5:50 AM [facility] [place] [facility] TYPE CODE TESTS RESULT OUT OF RANGE REFERENCE UNITS LAB L3300.0100 Normal COPPER Result Comment: TEST RESULT LIMITS Copper, Serum 66 Low ug/dL 72 - 166 Detection Limit = 5 TESTING PERFORMED AT [facility]. ORIGINAL REPORT ON FILE IN LAB CONTAINS ADDITIONAL TEST SITE INFORMATION. Performed By: #### L3300.0100 #### [facility] (refer to report for specific site) refer to report for address and phone number ANTINUCLEAR ANTIBODIES Collected: 09/30/2017 Status: F Source: ANDER DIRECT 5:50 AM [facility] [place] [facility] TYPE CODE TESTS RESULT OUT OF RANGE REFERENCE UNITS LAB L3100.5475 Normal PADMINI-DIRECT Result Comment: TEST RESULT UNITS REF INTERVAL Sjogren's Ab, Anti-SS-A/-SS-B Sjogren's Anti-SS-A <0.2 AI 0.0 - 0.9 Sjogren's Anti-SS-B <0.2 AI 0.0 - 0.9 Antinuclear Antibodies Direct PADMINI Direct Negative Negative TESTING PERFORMED AT [facility]. ORIGINAL REPORT ON FILE IN LAB CONTAINS ADDITIONAL TEST SITE INFORMATION. Performed By: #### L3100.5475 #### [facility] (refer to report for specific site) refer to report for address and phone number DUSTY + PROTEIN ELECT, Collected: 09/30/2017 Status: F Source: ANDER SERUM 5:50 AM [facility] [place] [facility] Order Comment: Specimen Comment: A duplicate report has been generated due to demographic Specimen Comment: updates. Is Patient Fasting? Y Comments: Manganese, Plasma [id number] plasma RT TYPE CODE TESTS RESULT OUT OF RANGE REFERENCE UNITS LAB L3100.3500 6.0-8.5 g/dL Low PROTEIN,TOTAL 5.0 LAB L3200.5821 520-1311 mg/dL Low IMMUNO G 562 LAB L3200.1400 64-422 mg/dL Normal IMMUNO A 283 LAB L3200.1500 26-217 mg/dL Normal IMMUNOGL M 82 LAB L3200.1510 2.9-4.4 g/dL Low ALBUMIN 2.8 LAB L3200.1520 0.0-0.4 g/dL Normal RCAQY-1-BTLC 0.2 LAB L3200.1530 0.4-1.0 g/dL Normal PBJKH-8-NNYB 0.7 LAB L3200.1540 0.7-1.3 g/dL Normal BETA GLOBULIN 0.7 LAB L3200.1550 0.4-1.8 g/dL Normal GAMMA GLOBULIN 0.6 LAB L3200.1560 Normal M-SPIKE Result Comment: NOt Observed LAB L3200.1570 2.2-3.9 g/dL Normal GLOBULIN, TOTAL 2.2 LAB L3200.1580 0.7-1.7 A/G Normal RATIO 1.3 LAB L3200.1590 . DUSTY Normal RESULT,S Comment: Result Comment: Presence of monoclonal protein is unclear at this time. Suggest repeat in 3 to 6 months if clinically indicated. LAB L3200.1594 . Normal NOTE: Comment Result Comment: Protein electrophoresis scan will follow via computer, mail, or solar installer technician delivery. Performed By: #### L3100.3425, L3300.1200, L3400.0700 #### [facility] (refer to report for specific site) refer to report for address and phone number ANCA Collected: 09/30/2017 Status: F Source: ANDER 5:50 AM [facility] [place] [facility] Order Comment: Specimen Comment: A duplicate report has been generated due to demographic Specimen Comment: updates. Is Patient Fasting? Y Comments: Manganese, Plasma [id number] plasma RT TYPE CODE TESTS RESULT OUT OF RANGE REFERENCE UNITS LAB L3300.1225 Neg:<1:20 titer CYTOPLASMIC Normal Ab <1:20 LAB L3300.1250 Neg:<1:20 titer PERINUCLEAR Normal Ab <1:20 Result Comment: The presence of positive fluorescence exhibiting P-ANCA or C-ANCA patterns alone is not specific for the diagnosis of Carrington's Granulomatosis (WG) or microscopic polyangiitis. Decisions about treatment should not be based solely on ANCA IFA results. The International ANCA Group Consensus recommends follow up testing of positive sera with both WY- 3 and MPO-ANCA enzyme immunoassays. As many as 5% serum samples are positive only by EIA. Ref. AM J Clin Pathol 1999;111:507-513. LAB L3300.1285 Neg:<1:20 titer Normal Atypical pANCA <1:20 Result Comment: The atypical pANCA pattern has been observed in a significant percentage of patients with ulcerative colitis, primary sclerosing cholangitis and autoimmune hepatitis. Performed By: #### L3100.3425, L3300.1200, L3400.0700 #### [facility] (refer to report for specific site) refer to report for address and phone number CERULOPLASMIN Collected: 09/30/2017 Status: F Source: ANDER 5:50 AM [facility] [place] [facility] Order Comment: Specimen Comment: A duplicate report has been generated due to demographic Specimen Comment: updates. Is Patient Fasting? Y Comments: Manganese, Plasma [id number] plasma RT TYPE CODE TESTS RESULT OUT OF REFERENCE UNITS RANGE LAB L3400.0700 19.0-39.0 mg/dL Low CERULOPLAS 1560 18.9 Result Comment: Performed at: [facility] [id number] Director Of Optimization: Jon Johnson PhD, Phone: [phone] Performed By: #### L3100.3425, L3300.1200, L3400.0700 #### [facility] (refer to report for specific site) refer to report for address and phone number MISCELLANEOUS LAB Collected: 09/30/2017 Status: F Source: ANDER PROCEDURE 5:50 AM [facility] [place] [facility] Order Comment: Comments: Manganese, Plasma [id number] plasma RT Test(s) Ordered: Manganese, Plasma [id number] plasma RT TYPE CODE TESTS RESULT OUT OF RANGE REFERENCE UNITS LAB L801.1541 Normal [facility] LAB TEST Result Comment: TEST RESULT UNITS REF INTERVAL MANGANESE, PLASMA NONE DETECTED ug/L <2.5 DETECTION LIMIT = 2.5 TESTING PERFORMED AT [facility]. ORIGINAL REPORT ON FILE IN LAB CONTAINS ADDITIONAL TEST SITE INFORMATION. Performed By: #### L801.1541 #### [facility] [address] [place], [address] PROTHROMBIN TIME W/INR Collected: 09/23/2017 Status: F Source: ANDER 7:46 AM [facility] [place] Order Comment: RESULT(S) PREVIOUSLY REPORTED ON MANUAL REQUISITION DURING DOWNTIME. TYPE CODE TESTS RESULT OUT OF RANGE REFERENCE UNITS LAB L300.4150 11.7-14.9 SECONDS High PROTIME 15.4 LAB L300.4200 Normal INR 1.2 Performed By: #### L300.3900 #### [facility] [address] [place], [address] PROTHROMBIN TIME W/INR Collected: 09/17/2017 Status: F Source: ANDER 5:45 AM [facility] [place] [facility] Order Comment: 127-2 TYPE CODE TESTS RESULT OUT OF RANGE REFERENCE UNITS LAB L300.4150 11.7-14.9 SECONDS High PROTIME 17.6 LAB L300.4200 Normal INR 1.4 Performed By: #### L300.3900 #### [facility] [address] [place], [address] BASIC METABOLIC Collected: 09/17/2017 Status: F Source: ANDER PROFILE (BMP) 5:45 AM [facility] [place] [facility] Order Comment: 127-2 TYPE CODE TESTS RESULT OUT OF RANGE REFERENCE UNITS LAB L501.0100 74-106 mg/dL Normal GLU 84 Result Comment: Please note revised GLUCOSE reference range effective 2017. LAB L501.1000 7-18 mg/dL High BUN 20 LAB L501.1100 0.55-1.02 mg/dL High CREAT,SERUM 1.24 Result Comment: The validity of the calculated GFR AND GFRAA in patients over 70 years has not been determined. Clinical correlation is essential. LAB L501.1110 >60 mL/min Low EST GFR 44 Result Comment: Non- GFR Calc LAB L501.1115 >60 mL/min Low EST GFR - AA 53 Result Comment: GFR Calc LAB L501.1300 10-20 RATIO Normal BUN/CRE 16.1 LAB L501.2200 8.5-10.1 mg/dL Low CA 8.2 LAB L501.5300 136-145 mmol/L NA Normal 143 LAB L501.5600 3.5-5.1 mmol/L K Normal 3.8 LAB L501.5900 98-107 mmol/L CL Normal 105 LAB L501.6100 21.0-32.0 mmol/L Normal CO2 32.0 LAB L501.6200 5-15 Normal GAP 6 Performed By: #### L500.2500 #### [facility] [address] [place], [address] PROTIME W/INR Collected: 09/09/2017 Status: F Source: ANDER FINGERSTICK 5:26 AM [facility] [place] [facility] TYPE CODE TESTS RESULT OUT OF REFERENCE UNITS RANGE LAB L9200.1001 11.9-14.4 SEC High PROTIME ISTAT 36.2 Result Comment: Reference Range 11.9 - 14.4 LAB L9200.2000 Normal INR ISTAT 3.20 Result Comment: Critical Value > 3.5 Performed By: #### L9200.0000 #### [facility] Point of Care [address] [place], [place] [address] PROTHROMBIN TIME W/INR Collected: 09/02/2017 Status: F Source: ANDER 5:30 AM [facility] [place] [facility] TYPE CODE TESTS RESULT OUT OF RANGE REFERENCE UNITS LAB L300.4150 11.7-14.9 SECONDS High PROTIME 29.6 LAB L300.4200 Normal INR 2.8 Performed By: #### L300.3900 #### [facility] [address] [place], [place], [id number] BASIC METABOLIC Collected: 09/02/2017 Status: F Source: ANDER PROFILE (BMP) 5:30 AM [facility] [place] [facility] TYPE CODE TESTS RESULT OUT OF RANGE REFERENCE UNITS LAB L501.0100 74-106 mg/dL Normal GLU 75 Result Comment: Please note revised GLUCOSE reference range effective 2017. LAB L501.1000 7-18 mg/dL Normal BUN 15 LAB L501.1100 0.55-1.02 mg/dL High CREAT,SERUM 1.25 Result Comment: The validity of the calculated GFR AND GFRAA in patients over 70 years has not been determined. Clinical correlation is essential. LAB L501.1110 >60 mL/min Low EST GFR 44 Result Comment: Non- GFR Calc LAB L501.1115 >60 mL/min Low EST GFR - AA 53 Result Comment: GFR Calc LAB L501.1300 10-20 RATIO Normal BUN/CRE 12.0 LAB L501.2200 8.5-10.1 mg/dL Low CA 8.2 LAB L501.5300 136-145 mmol/L NA Normal 140 LAB L501.5600 3.5-5.1 mmol/L K Normal 3.8 LAB L501.5900 98-107 mmol/L CL Normal 104 LAB L501.6100 21.0-32.0 mmol/L Normal CO2 30.0 LAB L501.6200 5-15 Normal GAP 6 Performed By: #### L500.2500 #### [facility] [address] [place], [address] PROTIME W/INR Collected: 08/29/2017 Status: F Source: ANDER FINGERSTICK 5:34 AM [facility] [place] [facility] TYPE CODE TESTS RESULT OUT OF REFERENCE UNITS RANGE LAB L9200.1001 11.9-14.4 SEC High PROTIME ISTAT 33.9 Result Comment: Reference Range 11.9 - 14.4 LAB L9200.2000 Normal INR ISTAT 3.00 Result Comment: Critical Value > 3.5 Performed By: #### L9200.0000 #### [facility] Point of Care [address] [place], [place] [address] CBC-COMPLETE BLOOD CNT Collected: 08/23/2017 Status: F Source: ANDER NO DIFF 5:40 AM [facility] [place] [facility] Order Comment: ROOM 127 TYPE CODE TESTS RESULT OUT OF RANGE REFERENCE UNITS LAB L100.1000 4.4-11.0 K/mm3 Normal WBC 5.4 LAB L100.1200 4.2-5.4 M/mm3 Low RBC 3.40 LAB L100.1300 12.0-15.0 g/dl Low HGB 10.3 LAB L100.1400 37-47 % Low HCT 33.4 LAB L100.1500 81-99 fL Normal MCV 98.2 LAB L100.1600 27.0-32.0 pg Normal MCH 30.3 LAB L100.1700 32-36 g/gl Low MCHC 30.8 LAB L100.1810 11.6-14.6 % High RDW CV 16.4 LAB L100.1820 35.1-43.9 fl High RDW SD 56.8 LAB L100.1900 150-450 K/mm3 Normal PLT 203 LAB L100.2000 6.2-12.0 fl Normal MPV 11.5 Performed By: #### L100.0500 #### [facility] [address] [place], [place], [address] PROTHROMBIN TIME W/INR Collected: 08/23/2017 Status: F Source: ANDER 5:40 AM [facility] [place] [facility] Order Comment: ROOM 127 TYPE CODE TESTS RESULT OUT OF RANGE REFERENCE UNITS LAB L300.4150 11.7-14.9 SECONDS High PROTIME 25.4 LAB L300.4200 Normal INR 2.3 Performed By: #### L300.3900 #### [facility] [address] [place], [place], [address] BASIC METABOLIC Collected: 08/19/2017 Status: F Source: ANDER PROFILE (BMP) 6:00 AM [facility] [place] [facility] Order Comment: 127-2 TYPE CODE TESTS RESULT OUT OF RANGE REFERENCE UNITS LAB L501.0100 74-106 mg/dL Normal GLU 81 Result Comment: Please note revised GLUCOSE reference range effective 2017. LAB L501.1000 7-18 mg/dL Normal BUN 15 LAB L501.1100 0.55-1.02 mg/dL High CREAT,SERUM 1.18 Result Comment: The validity of the calculated GFR AND GFRAA in patients over 70 years has not been determined. Clinical correlation is essential. LAB L501.1110 >60 mL/min Low EST GFR 47 Result Comment: Non- GFR Calc LAB L501.1115 >60 mL/min Low EST GFR - AA 57 Result Comment: GFR Calc LAB L501.1300 10-20 RATIO Normal BUN/CRE 12.7 LAB L501.2200 8.5-10.1 mg/dL Low CA 8.0 LAB L501.5300 136-145 mmol/L NA Normal 141 LAB L501.5600 3.5-5.1 mmol/L Low K 3.4 LAB L501.5900 98-107 mmol/L CL Normal 104 LAB L501.6100 21.0-32.0 mmol/L Normal CO2 31.0 LAB L501.6200 5-15 Normal GAP 6 Performed By: #### L500.2500 #### [facility] [address] [place], [place], [address] PROTHROMBIN TIME W/INR Collected: 08/19/2017 Status: F Source: ANDER 6:00 AM [facility] [place] [facility] Order Comment: 127-2 TYPE CODE TESTS RESULT OUT OF REFERENCE UNITS RANGE LAB L300.4150 11.7-14.9 SECONDS High PROTIME 40.3 LAB L300.4200 High alert INR 4.1 Result Comment: CRITICAL VALUE VERIFIED. CALLED TO [facility] IRAIDA OQUENDO 08/19/17 0846 Flo Arana. RESULTS READ BACK BY IRAIDA OQUENDO . Performed By: #### L300.3900 #### [facility] [address] [place], [address] PROTIME W/INR Collected: 08/12/2017 Status: F Source: ANDER FINGERSTICK 5:28 AM [facility] [place] [facility] TYPE CODE TESTS RESULT OUT OF REFERENCE UNITS RANGE LAB L9200.1001 11.9-14.4 SEC High PROTIME ISTAT 32.9 Result Comment: Reference Range 11.9 - 14.4 LAB L9200.2000 Normal INR ISTAT 2.90 Result Comment: Critical Value > 3.5 Performed By: #### L9200.0000 #### [facility] Point of Care [address] [place], [place] [address] BASIC METABOLIC Collected: 08/05/2017 Status: F Source: ANDER PROFILE (BMP) 6:20 AM [facility] [facility] Order Comment: 127-2 TYPE CODE TESTS RESULT OUT OF RANGE REFERENCE UNITS LAB L501.0100 74-106 mg/dL Low GLU 73 Result Comment: Please note revised GLUCOSE reference range effective 2017. LAB L501.1000 7-18 mg/dL Normal BUN 14 LAB L501.1100 0.55-1.02 mg/dL High CREAT,SERUM 1.23 Result Comment: The validity of the calculated GFR AND GFRAA in patients over 70 years has not been determined. Clinical correlation is essential. LAB L501.1110 >60 mL/min Low EST GFR 45 Result Comment: Non- GFR Calc LAB L501.1115 >60 mL/min Low EST GFR - AA 54 Result Comment: GFR Calc LAB L501.1300 10-20 RATIO Normal BUN/CRE 11.4 LAB L501.2200 8.5-10.1 mg/dL CA Normal 8.5 LAB L501.5300 136-145 mmol/L NA Normal 140 LAB L501.5600 3.5-5.1 mmol/L K Normal 3.7 LAB L501.5900 98-107 mmol/L CL Normal 103 LAB L501.6100 21.0-32.0 mmol/L Normal CO2 30.0 LAB L501.6200 5-15 Normal GAP 7 Performed By: #### L500.2500 #### [facility] [address] [place], [place], [address] PROTHROMBIN TIME W/INR Collected: 08/05/2017 Status: F Source: ANDER 6:20 AM [facility] [place] Order Comment: 127-2 TYPE CODE TESTS RESULT OUT OF RANGE REFERENCE UNITS LAB L300.4150 11.7-14.9 SECONDS High PROTIME 24.2 LAB L300.4200 Normal INR 2.2 Performed By: #### L300.3900 #### [facility] [address] [place], [address] PROTIME W/INR Collected: 07/29/2017 Status: F Source: ANDER FINGERSTICK 4:55 AM [facility] [place] [facility] TYPE CODE TESTS RESULT OUT OF REFERENCE UNITS RANGE LAB L9200.1001 11.9-14.4 SEC High PROTIME ISTAT 17.2 Result Comment: Reference Range 11.9 - 14.4 LAB L9200.2000 Normal INR ISTAT 1.50 Result Comment: Critical Value > 3.5 Performed By: #### L9200.0000 #### [facility] Point of Care [address] [place] [address] BASIC METABOLIC Collected: 07/22/2017 Status: F Source: ANDER PROFILE (BMP) 5:55 AM [facility] [place] [facility] Order Comment: 127-2 TYPE CODE TESTS RESULT OUT OF RANGE REFERENCE UNITS LAB L501.0100 74-106 mg/dL Normal GLU 77 Result Comment: Please note revised GLUCOSE reference range effective 2017. LAB L501.1000 7-18 mg/dL High BUN 19 LAB L501.1100 0.55-1.02 mg/dL High CREAT,SERUM 1.47 Result Comment: The validity of the calculated GFR AND GFRAA in patients over 70 years has not been determined. Clinical correlation is essential. LAB L501.1110 >60 mL/min Low EST GFR 36 Result Comment: Non- GFR Calc LAB L501.1115 >60 mL/min Low EST GFR - AA 44 Result Comment: GFR Calc LAB L501.1300 10-20 RATIO Normal BUN/CRE 12.9 LAB L501.2200 8.5-10.1 mg/dL Low CA 8.4 LAB L501.5300 136-145 mmol/L NA Normal 137 LAB L501.5600 3.5-5.1 mmol/L K Normal 4.2 LAB L501.5900 98-107 mmol/L CL Normal 99 LAB L501.6100 21.0-32.0 mmol/L Normal CO2 31.0 LAB L501.6200 5-15 Normal GAP 7 Performed By: #### L500.2500, L500.4100, L501.9520 #### [facility] [address] [place], [place], [address] LIPID PROFILE Collected: 07/22/2017 Status: F Source: ANDER 5:55 AM [facility] [place] [facility] Order Comment: 127-2 TYPE CODE TESTS RESULT OUT OF RANGE REFERENCE UNITS LAB L501.4900 200 mg/dL Normal CHOL 118 Result Comment: <200 mg/dL Desirable 200-240 mg/dL Borderline >240 mg/dL High Risk LAB L501.5000 mg/dL Normal TRIG 106 Result Comment: The drugs N-Acetylcysteine and Metamizole may falsely depress this assay. Serum Triglycerides Reference Interval Normal <150 mg/dL Borderline high 150 - 199 mg/dL High 200 - 499 mg/dL Very High > or = 500 mg/dL LAB L501.6400 mg/dL Normal HDL 50 Result Comment: The drugs N-Acetylcysteine and Metamizole may falsely depress this assay. Reference Range HDL <40 mg/dL Low HDL Cholesterol HDL >or= 60 mg/dL High HDL Cholesterol LAB L501.6500 0-130 mg/dL Normal LDL 47 LAB L501.6600 5-40 mg/dL Normal VLDL 21 Performed By: #### L500.2500, L500.4100, L501.9520 #### [facility] [address] [place], [address] THYROID STIM HORMONE Collected: 07/22/2017 Status: F Source: ANDER (TSH) 5:55 AM [facility] [place] [facility] Order Comment: 127-2 TYPE CODE TESTS RESULT OUT OF RANGE REFERENCE UNITS LAB L501.9520 0.358-3.74 uIU/mL High TSH 4.17 Performed By: #### L500.2500, L500.4100, L501.9520 #### [facility] [address] [place], [place], [address] PROTIME W/INR Collected: 07/15/2017 Status: F Source: ANDER FINGERSTICK 5:51 AM [facility] [place] [facility] TYPE CODE TESTS RESULT OUT OF REFERENCE UNITS RANGE LAB L9200.1001 11.9-14.4 SEC High PROTIME ISTAT 16.4 Result Comment: Reference Range 11.9 - 14.4 LAB L9200.2000 Normal INR ISTAT 1.40 Result Comment: Critical Value > 3.5 Performed By: #### L9200.0000 #### [facility] Point of Care [address] [place] [address] 12 LEAD ELECTROCARDIOGRAM Observed: 07/12/2017 Status: F Source: ANDER 2:28 PM [facility] [place] [facility] [facility] Cardiovascular Services [address] [place] [address] 12 Lead EKG 07/11/172143 MR#: [id number] Acct: [id number] Name: XI BAKER Rep #: [id number] : 1935 82 From: Jacob Bee MD Attending Dr: Status: DEP ER Ordering Dr: Segun Isabel MD Date: 07/11/17 Location: ED Sex: F C Admitted: Test Reason : FALL Blood Pressure : / mmHG Vent. Rate : 064 BPM Atrial Rate : 064 BPM P-R Int : 172 ms QRS Dur : 084 ms QT Int : 370 ms P-R-T Axes : 086 000 029 degrees QTc Int : 381 ms Normal sinus rhythm Normal ECG Confirmed by CASSANDRA ADAMS, JACOB ([id number]), non linear editor KJ ESCOBAR ([id number]) on 07/12/2017 2:27:47 PM Referred By: CHALO Confirmed By:JACOB BEE MD 07/12/17 1427 Date Jacob Bee MD CC: Presley Leigh III, MD; Segun Isabel MD Signed CR PELVIS COMPLETE Observed: 07/12/2017 Status: F Source: Swift Identity [facility] 3 VIEWS 4:07 AM SYSTEM REPOSITORY Patient Name: XI BAKER Diagnostic Radiology Exam Date/Time 07/12/2017 03:40:28 EDT Exam CR Pelvis Complete Minimum 3 Views Ordering Physician MD ZENAIDA, YENI Accession Number [id number] CPT4 Codes 77912 () Reason For Exam fracture Report Five views of the pelvis, 07/12/2017. Reason for examination: Pelvic pain. Fractures. COMPARISON: CT of the abdomen and pelvis obtained earlier on 07/12/2017. FINDINGS: There is generalized osteopenia. Left pelvic fractures involving the superior and inferior pubic rami and acetabulum are noted, somewhat less clearly visualized compared to the prior CT. There is surgical hardware in the right proximal femur. No obvious left femur fracture is noted. No obvious sacral fracture is appreciated. There are degenerative changes in the lower lumbar spine. There is a compression deformity of L5 of uncertain chronicity. IMPRESSION: Left pelvic fractures, somewhat more easily visualized on prior CT. Compression deformity of L5 of uncertain chronicity. Report Dictated on Workstation: [id number] Final Dictated: 07/12/2017 4:07 am Dictating Physician: MD GILBERT JOE M Signed Date and Time: 07/12/2017 4:09 am Signed by: MD GILBERT JOE M Transcribed Date and Time: 07/12/2017 4:07 CT CHEST/ABDOMEN/PELVIS (NO Observed: 07/12/2017 Status: F Source: [facility] PO, NO IV) 3:18 AM [facility] Patient Name: XI BAKER CT Exam Date/Time 07/12/2017 02:56:[address] Chest/Abdomen/Pelvis (No PO, No IV) Ordering Physician MD THAO, KAREN Accession Number [id number] CPT4 Codes 07864 (CT Abdomen (No PO, No IV Contrast)), 86995 (CT Chest/Abdomen/Pelvis (No PO, No IV)) Reason For Exam ABD TRAUMA BLUNT, PATIENT IS STABLE Report CT of the chest, abdomen, and pelvis without intravenous contrast, 07/12/2017. Reason for examination: Trauma patient. COMPARISON: None available. TECHNIQUE: 1 mm axial images were obtained through the chest and 3 mm axial images were obtained through the abdomen and pelvis. No intravenous or oral contrast was administered. Coronal and sagittal reconstructions were created and reviewed. FINDINGS: CHEST: Evaluation of the upper chest is significantly limited by artifact from bilateral shoulder arthroplasties. Cardiac size is enlarged. There is a small pericardial effusion of uncertain chronicity. The thoracic aorta is grossly normal in appearance. There is atelectasis or scarring in the dependent portions of the lungs and in the lung bases. There is no clear evidence of acute infiltrate or contusion. No pleural effusion or pneumothorax is present. There is generalized osteopenia. There are degenerative changes in the thoracic spine with compression deformities at T7 and T8 which are of uncertain chronicity. There are two moderate to severe compression deformities at T12 and L1 which have been treated with vertebroplasty. ABDOMEN: Examination is limited by technique and artifact. The liver and spleen appear grossly intact. The kidneys appear grossly intact. The abdominal aorta is normal in caliber. There is no clear evidence of aortic injury. There are surgical clips near the gastroesophageal junction. There may be small hiatal hernia. There is no bowel distention. No free gas or abnormal fluid collection is noted. Pelvis: The urinary bladder is decompressed by Peck catheter. There is no clear evidence of bladder injury. No inflammatory process or abnormal fluid collection is noted in the pelvis. There are multiple lumbar compression deformities including the treated compression deformity of L1. The other compression deformities are of uncertain chronicity. There is surgical hardware in the right proximal femur. There are fractures of the left superior and inferior pubic rami which may be acute. There is also a fracture of the anterior wall of the left acetabulum. IMPRESSION: Left superior and inferior pubic rami fractures, and fracture of the left acetabulum, possibly acute in nature. Numerous spinal compression deformities of uncertain chronicity. Small pericardial effusion of uncertain chronicity. Otherwise, chronic findings as described. Report Dictated on Workstation: [id number] Final Dictated: 07/12/2017 3:18 am Dictating Physician: MD GILBERT JOE M Signed Date and Time: 07/12/2017 3:28 am Signed by: MD GILBERT JOE M Transcribed Date and Time: 07/12/2017 3:18 CT SPINE CERVICAL W/O Observed: 07/12/2017 Status: F Source: [facility] CONTRAST 3:14 AM SYSTEM REPOSITORY Patient Name: XI BAKER CT Exam Date/Time 07/12/2017 02:55:[address] Spine Cervical w/o Contrast Ordering Physician MD OSUNA ALEKSANDAR Accession Number [id number] CPT4 Codes 79244 () Reason For Exam RECENT TRAUMA, SPINE Report CT of the cervical spine without intravenous contrast, 07/12/2017. Reason for examination: Neck pain after falling. COMPARISON: None available. TECHNIQUE: 1 mm axial images were obtained through the cervical spine. No intravenous contrast was administered. Coronal and sagittal reconstructions were created and reviewed. FINDINGS: There is generalized osteopenia. There is incomplete fusion of the posterior arch of C1, a developmental variant. No fracture is identified. There is very mild, grade 1 anterolisthesis of C3 on C4. No other subluxation is noted. There are moderate degenerative disc and endplate changes at C5-C6 and C6-C7 with a Schmorl's node in the superior endplate of C7. There are mild to moderate canal stenoses in the lower cervical l. Secondary to degenerative changes. Craniocervical junction appears intact. There are degenerative changes in the facet joints at multiple levels with fusion of the facet joints on the right at C3-C4. Perivertebral soft tissue show no clear evidence of injury. IMPRESSION: Osteopenia and degenerative changes in the spine. No acute osseous abnormality identified. Report Dictated on Workstation: [id number] Final Dictated: 07/12/2017 3:14 am Dictating Physician: MD GILBERT JOE M Signed Date and Time: 07/12/2017 3:17 am Signed by: MD GILBERT JOE M Transcribed Date and Time: 07/12/2017 3:14 CT HEAD OR BRAIN W/O Observed: 07/12/2017 Status: F Source: [facility] CONTRAST 3:12 AM SYSTEM REPOSITORY Patient Name: XI BAKER CT Exam Date/Time 07/12/2017 02:56:[address] Head or Brain w/o Contrast Ordering Physician MD OSUNA ALEKSANDAR Accession Number [id number] CPT4 Codes 43055 () Reason For Exam HEADACHE, POST TRAUMA Report CT of the brain without intravenous contrast, 07/12/2017. Reason for examination: Head injury. COMPARISON: None available. TECHNIQUE: 3 mm axial images were obtained through the brain. No intravenous contrast was administered. Coronal and sagittal reconstructions were created and reviewed. FINDINGS: There is no evidence of intracranial hemorrhage. There is no extra-axial fluid collection. No mass or mass effect is identified. There is moderate atrophy which is not considered unusual given the patient's age. Mild ventricular prominence is likely secondary to generalized atrophy. There is no midline shift. There are patchy areas of leukomalacia in the hemispheric white matter bilaterally suggestive of chronic microangiopathic ischemic change. There is no clear evidence of acute ischemia. No lesion is identified in the brainstem or cerebellum. Orbital contents appear grossly intact. No skull fracture is identified. IMPRESSION: Atrophy and chronic microangiopathic ischemic changes. No acute intracranial process identified. Report Dictated on Workstation: [id number] Final Dictated: 07/12/2017 3:12 am Dictating Physician: MD GILBERT JOE M Signed Date and Time: 07/12/2017 3:14 am Signed by: MD GILBERT JOE M Transcribed Date and Time: 07/12/2017 3:12 BASIC METABOLIC PANEL Collected: 07/12/2017 Status: F Source: [facility] 2:42 AM SYSTEM REPOSITORY TYPE CODE TESTS RESULT OUT OF REFERENCE UNITS RANGE LAB NA3 137-145 mmol/L Sodium 138 LAB CL3 98-107 mmol/L Chloride 103 LAB CO23 22-30 mmol/L Carbon Dioxide 29 LAB ANIN3 Anion Gap 5 LAB GLUC3 70-100 mg/dL Glucose High 124 LAB CRET3 0.52-1.25 mg/dL High Creatinine 1.28 LAB GF3BR >60 mL/min eGFR 48.5 LAB GF3WR >60 mL/min eGFR OTHER 40.0 Result Comment: Source- MDRD equation with creatinine calibration to IDMS(NKDEP) eGFR not recommended for drug dose adjustment LAB CA3 8.4-10.2 mg/dL Calcium 8.7 LAB K3 3.5-5.1 mmol/L Potassium 4.6 Result Comment: Moderately hemolysed, interpret with caution. LAB BUN3 7-20 mg/dL Urea Nitrogen 17 Result Comment: Moderately hemolysed, interpret with caution. Performed By: #### BMP3, ETOH4 #### The performing lab is in the report. ETHANOL SERUM/PLASMA Collected: 07/12/2017 Status: F Source: [facility] 2:42 AM SYSTEM REPOSITORY TYPE CODE TESTS RESULT OUT OF RANGE REFERENCE UNITS LAB ETOH3 0.000-0.010 g/dL <0.010 Ethanol-Seru m/Plasma Result Comment: NOTE: This result is for medical treatment only. Analysis performed using non-forensic procedures. Performed By: #### BMP3, ETOH4 #### The performing lab is in the report. Observed: 07/12/2017 Status: F Source: [facility] TS GEL 2:37 AM SYSTEM REPOSITORY ABO Group: O Rh, Gel: NEG Antibody Screen Gel: NEG Performed By: #### TSGL #### [address] [address] EMERGENCY DEPARTMENT Observed: 07/12/2017 Status: F Source: [place]END[place] SUMMARY 12:12 AM [facility] [place] [facility] Medical Records Department [address] [place], [place] [id number] Emergency Department Summary 07/12/17 0008 MR#: [id number] Acct: [id number] Name: XI BAKER Rep #: [id number] : 1935 82 From: Segun Isabel MD PCP: Presley Legih III, MD Status: REG ER - ER Visit Summary Date of Service: 07/12/17 Chief Complaint: Fall History of Present Illness: The patient is a 82 F who presents after a fall. She presents from a nursing facility. Normally she requires assistance to ambulate. She had gotten up to go to the bathroom. After getting back in bed her pants were still on. She tried to stand up at the side of her bed on her own to change when she fell. She currently only complains of lower back pain and left hip pain. Inability to ambulate. Denies head injury loss of consciousness headache or vomiting. Denies chest pain abdominal pain upper back or neck pain. Physical Examination: Afebrile vitals are stable Heart regular rate and rhythm Lungs are clear Abdomen soft 2+ dorsalis pedis pulses Painful limited range of motion in the bilateral lower extremities as this reproduces severe left hip pain no shortening Test Results: Chest x-ray shows no acute process. Lumbar x-ray shows old fractures no acute fractures. Hip x-ray shows left superior and inferior pubic rami fracture as well as a left acetabular fracture. EKG shows sinus rhythm at a rate of 64. Laboratory studies show white blood cell count 14.0 creatinine 1.5. INR 1.2. Emergency Department Course and Treatment: X-rays are notable for inferior and superior pubic rami fractures and a left acetabular fracture on the left. Therefore she was transferred to a trauma facility. Her prior surgeries have been done at [facility] therefore she was transferred to [facility]. She was given fentanyl for pain here. She did desaturate and require oxygen via nasal cannula. Treatment Plan: [] Disposition: Transfer Impression: Left acetabular fracture Left superior and inferior pubic rami fractures This note was generated with [employer]oodak dictation software. It may contain incorrect words, spelling, and punctuation that were not noted in review of the chart prior to signing ED Disposition - Plan for ED Patient: Chief Complaint: Fall Referrals: Presley Leigh III, MD [Primary Care Provider] - What to do if you have Problems For any increased pain, shortness of breath, bleeding, nausea or vomiting, chest pain, or any unexpected problems, contact your Primary Care Provider. Call [facility] ([phone]) or report to the closest Emergency Room. Call 911 if necessary. 07/12/17 0012 <Electronically signed by Segun Isabel MD> Date Segnu Isabel MD Cosigner Signature (If Indicated): Date CC: Presley Leigh III, MD CBC W/DIFF, AUTOMATED Collected: 07/11/2017 Status: F Source: ANDER 9:45 PM [facility] [place] TYPE CODE TESTS RESULT OUT OF RANGE REFERENCE UNITS LAB L100.1000 4.4-11.0 K/mm3 High WBC 14.0 LAB L100.1200 4.2-5.4 M/mm3 Low RBC 3.82 LAB L100.1300 12.0-15.0 g/dl Low HGB 11.5 LAB L100.1400 37-47 % Low HCT 36.3 LAB L100.1500 81-99 fL Normal MCV 95.0 LAB L100.1600 27.0-32.0 pg Normal MCH 30.1 LAB L100.1700 32-36 g/gl Low MCHC 31.7 LAB L100.1810 11.6-14.6 % High RDW CV 17.4 LAB L100.1820 35.1-43.9 fl High RDW SD 58.7 LAB L100.1900 150-450 K/mm3 Low PLT 148 LAB L100.2000 6.2-12.0 fl High MPV 12.3 LAB L100.2100 47-70 % High NEUT% 85.0 LAB L100.2200 19-41 % Low LY% 8.2 LAB L100.2300 0-10 % Normal MONO% 5.6 LAB L100.2400 0-5 % Normal EO% 0.4 LAB L100.2500 0-1 % Normal BASO% 0.1 LAB L100.2550 0.0-0.9 % Normal IM GRAN % 0.700 Result Comment: IG% - Immature Granulocytes (promyelocytes, myelocytes and metamyelocytes) > 1% indicates that a LEFT SHIFT is Present. LAB L100.2620 2.0-7.7 X10 3/uL High Absolute Neut 11.9 LAB L100.2720 0.83-4.51 X10 3/ul Normal Absolute Lymph 1.14 Performed By: #### L100.0100 #### [facility] [address] [place], [address] PROTHROMBIN TIME W/INR Collected: 07/11/2017 Status: F Source: TENDOY 9:45 PM [facility] [place] [facility] TYPE CODE TESTS RESULT OUT OF RANGE REFERENCE UNITS LAB L300.4150 11.7-14.9 SECONDS High PROTIME 15.6 LAB L300.4200 Normal INR 1.2 Performed By: #### L300.3900 #### [facility] [address] [place], [address] BASIC METABOLIC Collected: 07/11/2017 Status: F Source: ANDER PROFILE (BMP) 9:45 PM [facility] [place] [facility] TYPE CODE TESTS RESULT OUT OF RANGE REFERENCE UNITS LAB L501.0100 74-106 mg/dL High GLU 107 Result Comment: Fasting Glucose result from 100 to 125 mg/dL suggests IMPAIRED HOMEOSTASIS per A.D.A. criteria. Please note revised GLUCOSE reference range effective 2017. LAB L501.1000 7-18 mg/dL Normal BUN 16 LAB L501.1100 0.55-1.02 mg/dL High CREAT,SERUM 1.50 Result Comment: The validity of the calculated GFR AND GFRAA in patients over 70 years has not been determined. Clinical correlation is essential. LAB L501.1110 >60 mL/min Low EST GFR 35 Result Comment: Non- GFR Calc LAB L501.1115 >60 mL/min Low EST GFR - AA 43 Result Comment: GFR Calc LAB L501.1255 ml/min Normal Estimated CRCL 21.13 LAB L501.1300 10-20 RATIO Normal BUN/CRE 10.7 LAB L501.2200 8.5-10 mg/dL Low .1 CA 8.1 LAB L501.5300 136-14 mmol/L Normal 5 NA 139 LAB L501.5600 3.5-5. mmol/L Normal 1 K 4.3 Result Comment: Moderate Hemolysis, Result may be falsely increased. LAB L501.5900 98-107 mmol/L Normal CL 104 LAB L501.6100 21.0-32.0 mmol/L Normal CO2 28.0 LAB L501.6200 5-15 Normal 7 GAP Performed By: #### L500.2500 #### [facility] [address] [place], [address] CHEST 1 VIEW Observed: 07/11/2017 Status: F Source: ANDER (PORTABLE) 9:32 PM [facility] [place] [facility] Imaging Services [address] [place] [address] Chest 1 View (Portable) MR#: [id number] Acct: [id number] Name: XI BAKER Rep #: [id number] : 1935 F 82 From: Jere Todd MD PCP: Presley Leigh III, MD Status: REG ER Study: Chest 1 View (Portable) Date of Exam: 07/11/17 Exam# [id number] Ordering Dr: Segun Isabel MD STUDY: X-RAY CHEST REASON FOR EXAM: Female, 82 years old. Fall TECHNIQUE: Single frontal view of the chest. COMPARISON: 03/31/2017 FINDINGS: The lungs are clear and expanded. There is no demonstrated pleural abnormality. Normal size heart. Normal mediastinum and fritz. Normal visualized pulmonary arteries. Normal visualized aortic arch and descending thoracic aorta. Vertebral augmentations. Bilateral shoulder prostheses. There is no demonstrated abnormality of the visualized soft tissue structures of the upper abdomen. RAD/Chest 1 View (Portable) IMPRESSION: No acute pulmonary findings. Electronically Signed: Jere Todd MD at 22:42 EDT Tel , Service support , CC: Presley Leigh III, MD; Segun Isabel MD [employer]: Signed LUMBAR SPINE 2 OR 3 Observed: 07/11/2017 Status: F Source: [place]ENDOY VIEWS 9:32 PM [facility] [place] [facility] Imaging Services [address] [place] [id number] Lumbar Spine 2 or 3 Views MR#: [id number] Acct: [id number] Name: XI BAKER Rep #: [id number] : 1935 F 82 From: Jere Todd MD PCP: Presley Leigh III, MD Status: REG ER Study: Lumbar Spine 2 or 3 Views Date of Exam: 07/11/17 Exam# [id number] Ordering Dr: Segun Isabel MD STUDY: X-RAY - LUMBAR SPINE REASON FOR EXAM: Female, 82 years old. Fall TECHNIQUE: 3 view(s) of the lumbar spine were obtained. COMPARISON: 08/02/2016 FINDINGS: Remote compression deformities and vertebral augmentations at the T12 and L1 levels. Stable remote compression deformities at the L2 and L5 levels. Diffuse demineralization and facet disease. Hardware in the right femur. Aortic calcifications. Humeral hardware. RAD/Lumbar Spine 2 or 3 Views IMPRESSION: Multiple remote compression deformities as described. No acute osseous injury is visible. Comment: If there is further clinical concern for a radiographically occult spinal fracture, consider CT correlation if possible. Electronically Signed: Jere Todd MD at 22:44 EDT Tel , Service support , CC: Presley Leigh III, MD; Segun Isabel MD [employer]: Signed HIP 2-3 VIEWS WITH Observed: 07/11/2017 Status: F Source: TENDOY PELVIS 9:32 PM [facility] [place] [facility] Imaging Services [address] [place] [address] Hip 2-3 Views with Pelvis MR#: [id number] Acct: [id number] Name: XI BAKER Rep #: [id number] : 1935 F 82 From: Jere Todd MD PCP: Presley Leigh III, MD Status: REG ER Study: Hip 2-3 Views with Pelvis Date of Exam: 07/11/17 Exam# [id number] Ordering Dr: Segun Isabel MD STUDY: X-RAY - PELVIS AND LEFT HIP REASON FOR EXAM: Female, 82 years old. Fall and left hip pain TECHNIQUE: Radiological exam, hip, unilateral, with pelvis when performed; minimum of 4 views COMPARISON: 07/09/2016 FINDINGS: Acute fractures of the left superior and inferior pubic rami and the medial left acetabulum. No proximal left femur fracture is seen. Hip joint space on the left is intact. Hardware in the right femur. Diffuse demineralization. Pelvic phleboliths. RAD/Hip 2-3 Views with Pelvis IMPRESSION: Acute fractures of the left superior and inferior pubic rami and the medial left acetabulum. Electronically Signed: Jere Todd MD at 22:47 EDT Tel , Service support , CC: Presley Leigh III, MD; Segun Isabel MD [employer]: Signed PROTHROMBIN TIME W/INR Collected: 07/08/2017 Status: F Source: TENDOY 5:25 AM [facility] [place] [facility] Order Comment: ROOM 127-2 TYPE CODE TESTS RESULT OUT OF RANGE REFERENCE UNITS LAB L300.4150 11.7-14.9 SECONDS High PROTIME 17.0 LAB L300.4200 Normal INR 1.4 Performed By: #### L300.3900 #### [facility] [place], [address] BASIC METABOLIC Collected: 07/08/2017 Status: F Source: TENDOY PROFILE (BMP) 5:25 AM [facility] [place] Order Comment: ROOM 127-2 TYPE CODE TESTS RESULT OUT OF RANGE REFERENCE UNITS LAB L501.0100 74-106 mg/dL Normal GLU 81 Result Comment: Please note revised GLUCOSE reference range effective 2017. LAB L501.1000 7-18 mg/dL Normal BUN 13 LAB L501.1100 0.55-1.02 mg/dL High CREAT,SERUM 1.35 Result Comment: The validity of the calculated GFR AND GFRAA in patients over 70 years has not been determined. Clinical correlation is essential. LAB L501.1110 >60 mL/min Low EST GFR 40 Result Comment: Non- GFR Calc LAB L501.1115 >60 mL/min Low EST GFR - AA 48 Result Comment: GFR Calc LAB L501.1300 10-20 RATIO Low BUN/CRE 9.6 LAB L501.2200 8.5-10.1 mg/dL Low CA 7.6 LAB L501.5300 136-145 mmol/L Normal NA 143 LAB L501.5600 3.5-5.1 mmol/L Normal K 3.6 LAB L501.5900 98-107 mmol/L Normal CL 107 LAB L501.6100 21.0-32.0 mmol/L Normal CO2 30.0 LAB L501.6200 5-15 Normal GAP 6 Performed By: #### L500.2500 #### [facility] [address] [place], [address] PROTIME W/INR Collected: 07/05/2017 Status: F Source: ANDER FINGERSTICK 5:26 AM [facility] [place] [facility] TYPE CODE TESTS RESULT OUT OF RANGE REFERENCE UNITS LAB L9200.1001 11.9-14.4 SEC Normal PROTIME ISTAT 14.2 Result Comment: Reference Range 11.9 - 14.4 LAB L9200.2000 Normal INR ISTAT 1.20 Result Comment: Critical Value > 3.5 Performed By: #### L9200.0000 #### [facility] Point of Care [address] [facility] [place] [address] PROTIME W/INR Collected: 07/01/2017 Status: F Source: ANDER FINGERSTICK 5:46 AM [facility] [place] [facility] TYPE CODE TESTS RESULT OUT OF RANGE REFERENCE UNITS LAB L9200.1001 11.9-14.4 SEC Normal PROTIME ISTAT 14.3 Result Comment: Reference Range 11.9 - 14.4 LAB L9200.2000 Normal INR ISTAT 1.20 Result Comment: Critical Value > 3.5 Performed By: #### L9200.0000 #### [facility] Point of Care [address] [facility] [place] [address] PROTHROMBIN TIME W/INR Collected: 06/24/2017 Status: F Source: ANDER 5:31 AM [facility] [place] [facility] TYPE CODE TESTS RESULT OUT OF RANGE REFERENCE UNITS LAB L300.4150 11.7-14.9 SECONDS Normal PROTIME 13.7 LAB L300.4200 Normal INR 1.1 Performed By: #### L300.3900 #### [facility] [address] [place], [place], [address] BASIC METABOLIC Collected: 06/24/2017 Status: F Source: ANDER PROFILE (BMP) 5:31 AM [facility] [place] [facility] TYPE CODE TESTS RESULT OUT OF RANGE REFERENCE UNITS LAB L501.0100 74-106 mg/dL Normal GLU 83 Result Comment: Please note revised GLUCOSE reference range effective 2017. LAB L501.1000 7-18 mg/dL Normal BUN 15 LAB L501.1100 0.55-1.02 mg/dL High CREAT,SERUM 1.36 Result Comment: The validity of the calculated GFR AND GFRAA in patients over 70 years has not been determined. Clinical correlation is essential. LAB L501.1110 >60 mL/min Low EST GFR 40 Result Comment: Non- GFR Calc LAB L501.1115 >60 mL/min Low EST GFR - AA 48 Result Comment: GFR Calc LAB L501.1300 10-20 RATIO Normal BUN/CRE 11.0 LAB L501.2200 8.5-10.1 mg/dL Low CA 7.7 LAB L501.5300 136-145 mmol/L NA Normal 145 LAB L501.5600 3.5-5.1 mmol/L K Normal 4.1 LAB L501.5900 98-107 mmol/L CL Normal 107 LAB L501.6100 21.0-32.0 mmol/L Normal CO2 25.0 LAB L501.6200 5-15 Normal GAP 13 Performed By: #### L500.2500 #### [facility] [address] [place], [address] PROTIME W/INR Collected: 06/17/2017 Status: F Source: ANDER FINGERSTICK 5:49 AM [facility] [place] [facility] TYPE CODE TESTS RESULT OUT OF REFERENCE UNITS RANGE LAB L9200.1001 11.9-14.4 SEC High PROTIME ISTAT 19.3 Result Comment: Reference Range 11.9 - 14.4 LAB L9200.2000 Normal INR ISTAT 1.60 Result Comment: Critical Value > 3.5 Performed By: #### L9200.0000 #### [facility] Point of Care [address] [place] [address] BASIC METABOLIC Collected: 06/14/2017 Status: F Source: ANDER PROFILE (BMP) 4:45 AM [facility] [place] [facility] TYPE CODE TESTS RESULT OUT OF RANGE REFERENCE UNITS LAB L501.0100 74-106 mg/dL Normal GLU 89 Result Comment: Please note revised GLUCOSE reference range effective 2017. LAB L501.1000 7-18 mg/dL High BUN 19 LAB L501.1100 0.55-1.02 mg/dL High CREAT,SERUM 1.80 Result Comment: The validity of the calculated GFR AND GFRAA in patients over 70 years has not been determined. Clinical correlation is essential. LAB L501.1110 >60 mL/min Low EST GFR 29 Result Comment: Non- GFR Calc LAB L501.1115 >60 mL/min Low EST GFR - AA 35 Result Comment: GFR Calc LAB L501.1300 10-20 RATIO Normal BUN/CRE 10.6 LAB L501.2200 8.5-10.1 mg/dL Low CA 7.9 LAB L501.5300 136-145 mmol/L NA Normal 140 LAB L501.5600 3.5-5.1 mmol/L K Normal 4.5 LAB L501.5900 98-107 mmol/L CL Normal 104 LAB L501.6100 21.0-32.0 mmol/L Normal CO2 26.0 LAB L501.6200 5-15 Normal GAP 10 Performed By: #### L500.2500 #### [facility] [address] [facility] [place], [address] PROTHROMBIN TIME W/INR Collected: 06/14/2017 Status: F Source: ANDER 4:45 AM [facility] [place] [facility] TYPE CODE TESTS RESULT OUT OF RANGE REFERENCE UNITS LAB L300.4150 11.7-14.9 SECONDS High PROTIME 21.4 LAB L300.4200 Normal INR 1.9 Performed By: #### L300.3900 #### [facility] [address] [facility] [place], [address] CBC-COMPLETE BLOOD CNT Collected: 06/09/2017 Status: F Source: ANDER NO DIFF 6:45 AM [facility] [place] [facility] TYPE CODE TESTS RESULT OUT OF RANGE REFERENCE UNITS LAB L100.1000 4.4-11.0 K/mm3 Normal WBC 8.4 LAB L100.1200 4.2-5.4 M/mm3 Low RBC 3.83 LAB L100.1300 12.0-15.0 g/dl Low HGB 10.7 LAB L100.1400 37-47 % Low HCT 34.2 LAB L100.1500 81-99 fL Normal MCV 89.3 LAB L100.1600 27.0-32.0 pg Normal MCH 27.9 LAB L100.1700 32-36 g/gl Low MCHC 31.3 LAB L100.1810 11.6-14.6 % High RDW CV 16.2 LAB L100.1820 35.1-43.9 fl High RDW SD 52.8 LAB L100.1900 150-450 K/mm3 Normal PLT 233 LAB L100.2000 6.2-12.0 fl Normal MPV 10.8 Performed By: #### L100.0500 #### [facility] [address] [place], [place], [address] URINALYSIS, ROUTINE Collected: 06/09/2017 Status: F Source: TENDOY (DIPSTICK) 6:45 AM [facility] [place] [facility] Order Comment: How was Urine Obtained? CLEAN CATCH TYPE CODE TESTS RESULT OUT OF RANGE REFERENCE UNITS LAB L400.3000 Yellow COLOR Normal Yellow LAB L400.3050 Clear Normal CLARITY Clear LAB L400.3200 Normal mg/dl Normal GLUCOSE, UR Normal LAB L400.3300 Negative mg/dL Normal BILIRUBIN URINE Negative LAB L400.3400 Negative mg/dl Normal KETONE UR Negative LAB L400.3465 1.002-1.030 Normal SP.GR. DIPSTX 1.015 LAB L400.3550 5.0 - 8.0 pH UR Normal 6.0 LAB L400.3600 Negative mg/dl High PROT 15 DIPSTX LAB L400.3700 Normal mg/dl Normal UROBILI Normal LAB L400.3750 Negative Normal NITRITE UR Negative LAB L400.3780 Negative /ul High OCCULT BLOOD-UR 250 LAB L400.3800 Negative /ul High LEUK 25 ESTERASE Performed By: #### L400.2010 #### [facility] [address] [place], [address] PROTHROMBIN TIME W/INR Collected: 06/09/2017 Status: F Source: ANDER 6:45 AM [facility] TYPE CODE TESTS RESULT OUT OF RANGE REFERENCE UNITS LAB L300.4150 11.7-14.9 SECONDS High PROTIME 29.4 LAB L300.4200 Normal INR 2.9 Performed By: #### L300.3900 #### [facility] [address] [facility] [place], [address] BASIC METABOLIC Collected: 06/09/2017 Status: F Source: ANDER PROFILE (BMP) 6:45 AM [facility] [place] TYPE CODE TESTS RESULT OUT OF RANGE REFERENCE UNITS LAB L501.0100 74-106 mg/dL High GLU 131 Result Comment: Fasting Glucose result greater than or equal to 126 mg/dL suggests DIABETES MELLITUS per A.D.A. criteria. Please note revised GLUCOSE reference range effective 2017. LAB L501.1000 7-18 mg/dL High BUN 24 LAB L501.1100 0.55-1.02 mg/dL High CREAT,SERUM 2.18 Result Comment: The validity of the calculated GFR AND GFRAA in patients over 70 years has not been determined. Clinical correlation is essential. LAB L501.1110 >60 mL/min Low EST GFR 23 Result Comment: Non- GFR Calc LAB L501.1115 >60 mL/min Low EST GFR - AA 28 Result Comment: GFR Calc LAB L501.1300 10-20 RATIO Normal BUN/CRE 11.0 LAB L501.2200 8.5-10.1 mg/dL Low CA 7.9 LAB L501.5300 136-145 mmol/L Low NA 135 LAB L501.5600 3.5-5.1 mmol/L K Normal 4.3 LAB L501.5900 98-107 mmol/L CL Normal 102 LAB L501.6100 21.0-32.0 mmol/L Normal CO2 27.0 LAB L501.6200 5-15 Normal GAP 6 Performed By: #### L500.2500 #### [facility] [address] [place], [address] Observed: 06/09/2017 Status: F Source: ANDER CULTURE, URINE 6:45 AM [facility] [place] [facility] Urine Culture [place] Count = 3000 mL Below infection level. ORGANISM 1: GPC Poss Enterococcus sp [place] Count 1000-10,000 Performed By: #### M100.0650 #### [facility] [address] [place], [address] PROTHROMBIN TIME W/INR Collected: 06/07/2017 Status: F Source: ANDER 5:30 AM [facility] [place] [facility] Order Comment: ROOM 127 TYPE CODE TESTS RESULT OUT OF REFERENCE UNITS RANGE LAB L300.4150 11.7-14.9 SECONDS High PROTIME 53.0 LAB L300.4200 High alert INR 6.3 Result Comment: CRITICAL VALUE VERIFIED. CALLED TO ADAN AT [facility] 06/07/17 0931 Erinn Slaughter. RESULTS READ BACK BY SAME . Performed By: #### L300.3900 #### [facility] [place], [address] PROTHROMBIN TIME W/INR Collected: 06/03/2017 Status: F Source: ANDER 6:03 AM [facility] [place] [facility] Order Comment: CONFIRMATION FOR PL9 TYPE CODE TESTS RESULT OUT OF REFERENCE UNITS RANGE LAB L300.4150 11.7-14.9 SECONDS High PROTIME 44.6 LAB L300.4200 High alert INR 5.0 Result Comment: CRITICAL VALUE VERIFIED. CALLED TO OLIVIA ORDOÑEZ 06/03/17 0934 Flo Arana. RESULTS READ BACK BY OLIVIA ORDOÑEZ . Performed By: #### L300.3900 #### [facility] [address] [place], [address] PROTIME W/INR Collected: 06/03/2017 Status: F Source: ANDER FINGERSTICK 5:55 AM [facility] [place] [facility] TYPE CODE TESTS RESULT OUT OF REFERENCE UNITS RANGE LAB L9200.1001 11.9-14.4 SEC High PROTIME ISTAT 58.3 Result Comment: Reference Range 11.9 - 14.4 LAB L9200.2000 High alert INR ISTAT 5.30 Result Comment: Critical Value > 3.5 Performed By: #### L9200.0000 #### [facility] Point of Care [address] [place] [address] Observed: 05/31/2017 Status: F Source: ANDER CULTURE, URINE 9:50 PM [facility] [place] [facility] Urine Culture ORGANISM 1: Presumptive E. coli [place] Count >100,000 Presumptive E. coli: REACTION Amoxacillin/Clavulanic Acid $ <=2 S Ampicillin $ 8 S Ampicillin/Sulbactam $ 4 S Cefazolin $ <=4 S Cefepime $ <=1 S Ceftriaxone $ <=1 S Ciprofloxacin $ <=0.25 S ESBL - Ertapenim $$$ <=0.5 S Gentamicin $ <=1 S Imipenem *NF <=0.25 S Levofloxacin $ 1 S Nitrofurantoin $ <=16 S Piperacillin/Tazobactam $$ <=4 S Tobramycin $ <=1 S Trimethoprim/Sulfametho $ <=20 S (NF) indicates non-formulary drug at [facility]. Approval by Infectious Disease Specialist required before non-formulary drugs may be ordered and/or dispensed. Performed By: #### M100.0650 #### [facility] [address] [place], [place], [address] BASIC METABOLIC Collected: 05/27/2017 Status: F Source: ANDER PROFILE (BMP) 6:50 AM [facility] TYPE CODE TESTS RESULT OUT OF RANGE REFERENCE UNITS LAB L501.0100 74-106 mg/dL Normal GLU 83 LAB L501.1000 7-18 mg/dL Normal BUN 12 LAB L501.1100 0.55-1.02 mg/dL High 1.37 CREAT,SERUM Result Comment: The validity of the calculated GFR AND GFRAA in patients over 70 years has not been determined. Clinical correlation is essential. LAB L501.1110 >60 mL/min Low EST GFR 39 Result Comment: Non- GFR Calc LAB L501.1115 >60 mL/min Low EST GFR - AA 48 Result Comment: GFR Calc LAB L501.1300 10-20 RATIO Low BUN/CRE 8.8 LAB L501.2200 8.5-10.1 mg/dL Low CA 7.8 LAB L501.5300 136-145 mmol/L Normal NA 141 LAB L501.5600 3.5-5.1 mmol/L Normal K 4.1 LAB L501.5900 98-107 mmol/L Normal CL 102 LAB L501.6100 21.0-32.0 mmol/L Normal CO2 29.0 LAB L501.6200 5-15 Normal GAP 10 Performed By: #### L500.2500 #### [facility] [address] [facility] [place], [place], [address] CBC-COMPLETE BLOOD CNT Collected: 05/27/2017 Status: F Source: ANDER NO DIFF 6:50 AM [facility] [place] TYPE CODE TESTS RESULT OUT OF RANGE REFERENCE UNITS LAB L100.1000 4.4-11.0 K/mm3 Normal WBC 8.8 LAB L100.1200 4.2-5.4 M/mm3 Low RBC 3.96 LAB L100.1300 12.0-15.0 g/dl Low HGB 11.5 LAB L100.1400 37-47 % Low HCT 36.7 LAB L100.1500 81-99 fL Normal MCV 92.7 LAB L100.1600 27.0-32.0 pg Normal MCH 29.0 LAB L100.1700 32-36 g/gl Low MCHC 31.3 LAB L100.1810 11.6-14.6 % High RDW CV 15.8 LAB L100.1820 35.1-43.9 fl High RDW SD 52.1 LAB L100.1900 150-450 K/mm3 Normal PLT 152 LAB L100.2000 6.2-12.0 fl Normal MPV 11.1 Performed By: #### L100.0500 #### [facility] [address] [place], [place], [address] PROTHROMBIN TIME W/INR Collected: 05/27/2017 Status: F Source: ANDER 6:50 AM [facility] [place] [facility] TYPE CODE TESTS RESULT OUT OF REFERENCE UNITS RANGE LAB L300.4150 11.7-14.9 SECONDS High PROTIME 39.0 LAB L300.4200 High alert INR 4.2 Result Comment: CRITICAL VALUE VERIFIED. CALLED TO IRAIDA OQUENDO 05/27/17 0902 Flo Arana. RESULTS READ BACK BY IRIADA OQUENDO . Performed By: #### L300.3900 #### [facility] [address] [place], [address] PROTHROMBIN TIME W/INR Collected: 05/20/2017 Status: F Source: ANDER 5:08 AM [facility] REPOS[facility] TYPE CODE TESTS RESULT OUT OF RANGE REFERENCE UNITS LAB L300.4150 11.7-14.9 SECONDS High PROTIME 24.8 LAB L300.4200 Normal INR 2.4 Performed By: #### L300.3900 #### [facility] [address] [place], [address] ALLERGIES ALLERGIES DATE TYPE / CODE NAME / CODE REACTION SEVERITY SOURCE Drug propoxyphene Other [place] An[place] 8 Allergy/734835023( napsylate/Y692880 Community SNOMED CT) 576(RXNORM) Hospital Repository Drug lisinopril/R07603 Itching [place] 8 Allergy/314919558( 0658(RXNORM) Formerly [facility] SNOMED CT) Hospital Repository Drug morphine/L4957584 Itching [place] 8 Allergy/015015332( 45(RXNORM) Formerly [facility] SNOMED CT) Hospital Repository Drug codeine/X14517627 Itching [place] 8 Allergy/620644194( 0(RXNORM) Formerly [facility] SNOMED CT) Hospital Repository Drug acetaminophen/F00 Other [place] 8 Allergy/575244491( 8760898(RXNORM) Formerly [facility] SNOMED CT) Hospital Repository Drug prednisone/S31926 Unknown [place] 8 Allergy/925967865( 2164(RXNORM) Formerly [facility] SNOMED CT) Hospital Repository Drug ibuprofen/Y022722 Nausea/Vom/Diar [place] 8 Allergy/351308339( 377(RXNORM) jorge Formerly [facility] SNOMED CT) Hospital Repository Drug neomycin/S4841087 Unknown [place] 8 Allergy/055298097( 75(RXNORM) [facility]ly [facility] SNOMED CT) Hospital Repository Drug bacitracin/B14091 Unknown [place] 8 Allergy/334176668( 2798(RXNORM) Community SNOMED CT) Hospital Repository Drug tramadol/K6999690 Rash [place] 8 Allergy/594616288( 80(RXNORM) Community SNOMED CT) Hospital Repository Drug pramoxine/T128869 Unknown [place] 8 Allergy/406175991( 571(RXNORM) Community SNOMED [facility]) Hospital Repository Drug polymyxin Unknown [place] 8 Allergy/452276354( B/N095776889(RXNO Community SNOMED CT) ) Hospital Repository Drug alendronate Other [place] 8 Allergy/405954591( sodium/G841310976 Community SNOMED CT) (RXNORM) Hospital Repository Miscellaneous contrast dye Renal [place] 8 Allergy/736288841( impairment Community SNOMED CT) Hospital Repository DRUG LATEX RASH [place] 1 INGREDI/367027491( Clinic Other SNOMED CT) [place] Rep[facility] DRUG TRAMADOL ITCHING [place] 1 INGREDI/918234115( Clinic Other SNOMED CT) [place] Rep[facility] DRUG LISINOPRIL COUGH Garcia 9 INGREDI/886177636( Clinic Other SNOMED CT) [place] Repository DRUG/450743702(SNO OXYCODONE-ACETAMI Garcia [address]) NOPHEN [facility] Other [place] Repository DRUG/699076749(SNO PROPOXYPHENE Garcia [address]) N-ACETAMINOPHEN Clinic Other [place] Rep[facility] DRUG ALENDRONATE GI UPSET Garcia 5 INGREDI/765438652( SODIUM Clinic Other SNOMED CT) [place] [facility] DRUG IBUPROFEN GI UPSET [facility] 5 INGREDI/222791975( Clinic Other SNOMED CT) [place] Repository DRUG MORPHINE INTOLERANCE High Garcia 5 INGREDI/818647474( Clinic Other SNOMED CT) [place] Repository DRUG CODEINE ITCHING Med [place] 5 INGREDI/915515106( Clinic Other SNOMED CT) [place] Repository NG/328894949(SNOME MORPHINE [facility] Repository NG/469898153(SNOME CODEINE [facility] Repository NG/895445603(SNOME PROPOXYPHENE [facility]) N-ACETAMINOPHEN Health System Repository NG/332048450(SNOME ALENDRONATE [facility]) SODIUM [facility] Repository NG/188888800(SNOME IBUPROFEN [facility] Repository NG/745723961(SNOME LATEX [facility]) [facility] Repository NG/616474085(SNOME LISINOPRIL [facility]) [facility] System Repository NG/570000718(SNOME OXYCODONE-ACETAMI [facility]) NOPHEN [facility] Repository NG/998168715(SNOME TRAMADOL [facility]) Health System Repository ENCOUNTERS ENCOUNTERS ADMIT/DISCHARGE ACCOUNT NUMBER ADMITTING ENCOUNTER LOCATION SOURCE CLASS 2018 [id number] [facility] Hospital ding:[facility] Repository 04/17/2018 [id number] Ambulatory [facility] Hospital ding:[facility] Repository 04/08/2018/04/08/20 [id number] Ambulatory [address] Repository 04/02/2018 [id number] [facility] ding:[facility]S.[facility] Repository 03/25/2018 [id number] Ambulatory [facility] Hospital ding:[facility] Repository 03/12/2018/03/12/[id number] Repository 03/03/2018 [id number] Ambulatory [facility] Hospital ding:[facility] Repository 02/17/2018 [id number] Ambulatory [facility] Hospital ding:[facility] Repository 02/03/2018 [id number] Ambulatory [facility] Hospital ding:[facility] Repository 01/20/2018 [id number] [facility] Hospital ding:[facility] Repository 01/16/2018/01/17/20 [id number] [facility] 01/11/2018 [id number] Ambulatory [facility] ding:LABSPEC Repository 01/11/2018/09/22/20 [id number] Ambulatory BMSBuilding: Ander 18 BMS.[facility] Hospital Repository 01/07/2018 [id number] Ambulatory [facility] Hospital ding:PSN Repository 01/06/2018 [id number] Ambulatory [facility] Hospital ding:[facility] Repository 12/31/2017/01/01/20 [id number] Ambulatory BMSBuilding: [place]ola 18 BMS.[facility] Hospital Repository 12/24/2017 [id number] Ambulatory [facility] ding:[facility] Repository 12/09/2017 [id number] Ambulatory [facility] Hospital ding:[facility] Repository 11/25/2017 [id number] Ambulatory [facility] ding:[facility] Repository 11/11/2017 [id number] Ambulatory [facility] ding:[facility] Repository 10/30/2017 [id number] Ambulatory [facility] ding:[facility] Repository 10/29/2017 [id number] Ambulatory [facility] Repository 10/29/2017/10/30/19 [id number] Ambulatory [address] MEDICAL Repository CENTERBuildi ng:AKXRNM 10/29/2017 [id number] Ambulatory [facility] Repository 10/29/2017/10/30/19 [id number] Ambulatory [address] MEDICAL Repository CENTERBuildi ng:AKXRNM 10/07/2017 [id number] Ambulatory [facility] ding:[facility] Repository 10/03/2017 [id number] Ambulatory [facility] Hospital ding:[facility] Repository 09/30/2017 [id number] Ambulatory [facility] Hospital ding:[facility] Repository 09/23/2017 [id number] Ambulatory [facility] Hospital ding:[facility] Repository 09/17/2017 [id number] Ambulatory [facility] Hospital ding:[facility] Repository 09/09/2017 [id number] Ambulatory [facility] Hospital ding:[facility] Repository 09/02/2017 [id number] Ambulatory [facility] Hospital ding:[facility] Repository 08/29/2017 [id number] Ambulatory [facility] Hospital ding:[facility] Repository 08/23/2017 [id number] Ambulatory [facility] Hospital ding:[facility] Repository 08/19/2017 [id number] Ambulatory [facility] Hospital ding:[facility] Repository 08/12/2017 [id number] Ambulatory [facility] Hospital ding:[facility] Repository 08/05/2017 [id number] Ambulatory [facility] Hospital ding:[facility] Repository 07/29/2017 [id number] Ambulatory [facility] Hospital ding:[facility] Repository 07/22/2017 [id number] Ambulatory [facility] Hospital ding:[facility] Repository 07/15/2017 [id number] Ambulatory [facility] Hospital ding:[facility] Repository 07/12/2017 [id number] Ambulatory [address] [place] [address] 3WRoom: System [id number]: Repository [id number] 07/11/2017/07/13/19 [id number] Emergency [address] Hospital ding:ED Repository 07/11/2017 [id number] Ambulatory BMSBuilding: Dola BMS.[facility] Hospital Repository 07/11/2017 [id number] Ambulatory BMSBuilding: Ander BMS.[facility] Hospital Repository 07/08/2017 [id number] Ambulatory [facility] Hospital ding:[facility] Repository 07/05/2017 [id number] Ambulatory [facility] Hospital ding:[facility] Repository 07/01/2017 [id number] Ambulatory [facility] Hospital ding:[facility] Repository 06/24/2017 [id number] Ambulatory [facility] ding:[facility] Repository 06/17/2017 [id number] [facility] ding:[facility] Repository 06/14/2017 [id number] [facility] ding:[facility]S.[facility] Repository 06/09/2017 [id number] [facility] ding:[facility]S.[facility] Repository 06/07/2017 [id number] [facility] ding:[facility]S.[facility] Repository 06/03/2017 [id number] [facility] ding:[facility]S.[facility] Repository 05/31/2017 [id number] [facility] ding:[facility] Repository 05/27/2017 [id number] [facility] ding:[facility] Repository 05/20/2017 [id number] [facility] ding:[facility]S.[facility] Repository PAYERS PAYERS ENCOUNTER GUARANTOR PAYER SUBSCRIBER SOURCE 2018 XI L Primary Insurance:SELF NOT GIVENUNK Ander [place] [address] Number: Effective [facility] Date:2018 Repository [place], [place] [address]Pkb: () 04/17/2018 XI L Primary XI L Ander [place] Insurance:MEDICARE [facility]: [place] [id number] PART A BPolicy Number: [id number] Regional Hospital [id number] Repository [place] Date:2018-04-17 16402Upa: () 04/17/2018 Secondary XI L Ander Insurance:ANTHEMPolicy SCOTTDO: [facility] Number: [id number] Hospital [id number] Repository Date:4690-47-12EA [address] [place] [address] 26[address]NW: 04/17/2018 Tertiary NOT GIVENUNK Ander Insurance:SELF PAY [facility] Number: Effective Repository Date:2018-04-17 04/02/2018 XI L Primary XI L Ander [place] Insurance:MEDICARE IRELANDDOB: [place] [address] PART A BPolicy Number: [id number] Regional Hospital [id number] Repository [place] Date:2018-04-02 85762Jgk: () 04/02/2018 Secondary XI L Dola Insurance:ANTHEMPolicy SCOTTDOB: Community Number: [id number] Repository Date:7522-38-53MP [address] [place] [address]GJ: 04/02/2018 Tertiary NOT GIVENUNK Ander Insurance:SELF PAY [facility] Number: Effective Repository Date:2018-04-02 03/25/2018 XI L Primary XI L Ander [place] Insurance:MEDICARE IRELANDDOB: [place] [address] PART A BPolicy Number: [id number] Regional Hospital [id number] Repository [facility] [place] Date:2018-03-25 51797Lmg: () 03/25/2018 Secondary XI L Ander Insurance:ANTHEMPolicy SCOTTDOB: Community Number: [id number] Hospital [id number] Repository Date:8689-08-78GS [address]JSIVHJ, [place] [address]MS: 03/25/2018 Tertiary NOT GIVENUNK Ander Insurance:SELF PAY [facility] Number: Effective Repository Date:2018-03-25 03/03/2018 XI L Primary XI L Ander [place] Insurance:MEDICARE [place]OB: [place] [address] PART A BPolicy Number: [id number] Regional Hospital [id number] Repository RDOOUNM [facility], [place] Date:2018-03-03 26727Jfr: () 03/03/2018 Secondary XI L Ander Insurance:ANTHEMPolicy SCOTTDOB: Community Number: [id number] Repository Date:2624-56-27AO [address] [place] [address] 88102ZT: 03/03/2018 Tertiary NOT GIVENUNK Dola Insurance:SELF PAY [facility] Number: Effective Repository Date:2018-03-03 02/17/2018 XI L Primary XI L Dola [place] [address] Insurance:MEDICARE [place]OB: [place] [address] PART A BPolicy Number: [id number] Regional Hospital [id number] Repository [place] Date:2018-02-17 59495Yrr: (hp) 02/17/2018 Secondary XI L Ander Insurance:ANTHEMPolicy SCOTTDOB: Community Number: [id number] Repository Date:1256-41-62HJ [address] [place] [address]RG: 02/17/2018 Tertiary NOT GIVENUNK Dola Insurance:SELF PAY [facility] Number: Effective Repository Date:2018-02-17 02/03/2018 XI L Primary XI L Dola [place] Insurance:MEDICARE [place]: [place] [address] PART A BPolicy Number: [id number] Regional Hospital [id number] Repository [place] Date:2018-02-03 12864Rku: (hp) 02/03/2018 Secondary XI L Dola Insurance:ANTHEMPolicy SCOTTDOB: Community Number: [id number] Repository Date:9819-15-82BU [address]WFR, [place] [address]TX: 02/03/2018 Tertiary NOT GIVENUNK Ander Insurance:SELF PAY [facility] Number: Effective Repository Date:2018-02-03 01/20/2018 XI L Primary XI L Dola [place] [address] Insurance:MEDICARE [place]: [place] [address] PART A BPolicy Number: [id number] Regional Hospital [id number] Repository [place] Date:2018-01-20 08362Yuj: () 01/20/2018 Secondary XI L Ander Insurance:ANTHEMPolicy SCOTTDOB: Community Number: [id number] Hospital [id number] Repository Date:8892-93-20GJ [address] [place] [address] 75328AQ: 01/20/2018 Tertiary NOT GIVENUNK Dola Insurance:SELF PAY [facility] Number: Effective Repository Date:2018-01-20 01/16/2018 XI L Primary XI L Ander [place] [address] Insurance:MEDICARE [place]: [place] [address] PART A BPolicy Number: [id number] Regional Hospital [id number] Repository [place] Date:2018-01-14 47835Nna: () 01/16/2018 Secondary XI L Ander Insurance:ANTHEMPolicy SCOTTDOB: Community Number: [id number] Repository Date:7487-43-63DR [address] [place] [address] 128[address]RF: 01/16/2018 Tertiary NOT GIVENUNK Dola Insurance:SELF PAY [facility] Number: Effective Repository Date:2018-01-14 01/11/2018 XI L Primary XI L Dola [place] [address] Insurance:MEDICARE [place]OB: [place] [address] PART A BPolicy Number: [id number] Regional Hospital [id number] Repository [place] Date:2018-01-13 78224Prh: () 01/11/2018 Secondary XI L Ander Insurance:ANTHEMPolicy SCOTTDOB: Community Number: [id number] Hospital [id number] Repository Date:3559-16-00UW [address]HKYHQYM, [place] [address]OL: 01/11/2018 Tertiary NOT GIVENUNK Dola Insurance:SELF PAY [facility] Number: Effective Repository Date:2018-01-11 01/11/2018 XI L Primary XI L Dola [place] [address] Insurance:MEDICARE I[place]ANDDOB: [place] [address] PART A BPolicy Number: [id number] Regional Hospital [id number] Repository [place] Date:2017-12-31 61003Bgx: () 01/11/2018 Secondary XI L Ander Insurance:ANTHEMPolicy SCOTTDOB: [facility] Number: [id number] Hospital [id number] Repository Date:3104-39-58[address]QWU, [place] [address]OD: 01/11/2018 Tertiary NOT GIVENUNK Dola Insurance:SELF PAY [facility] Number: Effective Repository Date:2018-01-11 01/07/2018 XI L Primary XI L Dola [place] [address] Insurance:MEDICARE I[place]DOB: [place] [address] PART A BPolicy Number: [id number] Regional Hospital [id number] Repository [place] Date:2017-09-30 76138Dtv: () 01/07/2018 Secondary XI L Ander Insurance:ANTHEMPolicy SCOTTDOB: Community Number: [id number] Hospital [id number] Repository Date:4625-42-34DN [address]YCFYFNY, [place] [address]GC: 01/07/2018 Tertiary NOT GIVENUNK Ander Insurance:SELF PAY [facility] Number: Effective Repository Date:2017-09-30 01/06/2018 XI L Primary XI L Ander [place] [address] Insurance:MEDICARE I[place]DOB: [place] [address] PART A BPolicy Number: [id number] Regional Hospital [id number] Repository [place] Date:2018-01-06 10018Ubv: () 01/06/2018 Secondary XI L Ander Insurance:ANTHEMPolicy SCOTTDOB: Community Number: [id number] Repository Date:1764-23-54DS [address]XJWYGLVKAREN CONNOR [address]CU: 01/06/2018 Tertiary NOT GIVENUNK Dola Insurance:SELF PAY [facility] Number: Effective Repository Date:2018-01-06 12/31/2017 XI L Primary XI L Ander [address] [address] Insurance:[facility] [place] [address] PART A BPolicy Number: [id number] Regional Hospital [id number] Repository [place] Date:2017-12-12 73448Oni: () 12/31/2017 Secondary XI L Ander Insurance:ANTHEMPolicy SCOTTDOB: Community Number: [id number] Repository Date:3394-78-25LE [address]PWQLZKX, [place] [address]LV: 12/31/2017 Tertiary NOT GIVENUNK Ander Insurance:SELF PAY [facility] Number: Effective Repository Date:2017-12-12 12/24/2017 XI L Primary XI L Ander [place] [address] Insurance:MEDICARE I[place]DOB: [place] [address] PART A BPolicy Number: [id number] Regional Hospital [id number] Repository [place] Date:2017-12-24 01906Azm: () 12/24/2017 Secondary XI L Ander Insurance:ANTHEMPolicy SCOTTDOB: Community Number: [id number] Repository Date:5922-76-22ME [address]QKKFYAO, [place] [address]RU: 12/24/2017 Tertiary NOT GIVENUNK Ander Insurance:SELF PAY [facility] Number: Effective Repository Date:2017-12-24 12/09/2017 XI L Primary XI L Ander [address] [address] Insurance:MEDICARE SCOTTDOB: [place] [id number] PART A BPolicy Number: [id number] Regional Hospital [id number] Repository [place], [place] Date:2017-12-09 09099Uvc: () 12/09/2017 Secondary XI L Dola Insurance:ANTHEMPolicy SCOTTDOB: Community Number: [id number] Hospital [id number] Repository Date:9287-15-07UM [address] [place] [address] 534[address]SY: 12/09/2017 Tertiary NOT GIVENUNK Dola Insurance:SELF PAY [facility] Number: Effective Repository Date:2017-12-09 11/25/2017 XI L Primary XI L Ander [address] [address] Insurance:MEDICARE [place]OB: [place] [address] PART A BPolicy Number: [id number] Regional Hospital [id number] Repository [facility], [place] Date:2017-11-25 11434Mpb: () 11/25/2017 Secondary XI L Dola Insurance:ANTHEMPolicy SCOTTDOB: Community Number: [id number] Hospital [id number] Repository Date:0112-76-57PZ [address]GXMUYLQ, [place] [address]DC: 11/25/2017 Tertiary NOT GIVENUNK Ander Insurance:SELF PAY [facility] Number: Effective Repository Date:2017-11-25 11/11/2017 XI L Primary XI L Dola [address] Insurance:MEDICARE SCOTTDOB: [place] [id number] PART A BPolicy Number: [id number] Regional Hospital [id number] Repository [place], [place] Date:2017-11-11 14187Zmv: () 11/11/2017 Secondary XI L Ander Insurance:ANTHEMPolicy SCOTTDOB: Community Number: [id number] Hospital [id number] Repository Date:6623-65-92VO [address] [place] [address] 08355NK: 11/11/2017 Tertiary NOT GIVENUNK Dola Insurance:SELF PAY [facility] Number: Effective Repository Date:2017-11-11 10/30/2017 XI L Primary XI L [facility] Insurance:[facility]: [place] [address] PART A BPolicy Number: [id number] [facility] [id number] [facility] [place] Date:2017-10-30 60521Ald: (IO) 10/30/2017 Secondary XI L D[place] Insurance:ANTHEMPolicy SCOTTDOB: Community Number: [id number] Hospital [id number] Repository Date:9392-10-47VP [address] [place] [address] 26236TE: 10/30/2017 Tertiary NOT GIVENUNK D[place] Insurance:SELF PAY [facility] Number: Effective Repository Date:2017-10-30 10/29/2017 XI L Primary XI L [facility] SCOTTDOB: Insurance:MEDICARE A SCOTTDOB: Health System S AND BPolicy Number: [id number] Repository [facility] [id number] [place], [place] Date: [address]Pty: (HP) 10/29/2017 Secondary XI L [facility] Insurance:ANTHEM SCOTTDOB: Health System MEDICARE [id number] Repository SUPPLEMENTPolicy Number: [id number] Date: 10/29/2017 XI L Primary XI L [facility] SCOTTDOB: Insurance:MEDICARE A SCOTTDOB: Health System S AND BPolicy Number: [id number] Repository [facility] [id number] [place] Date: [address]Lxw: () 10/29/2017 Secondary XI L [facility] Insurance:ANTH JUAN: Health System MEDICARE [id number] Repository SUPPLEMENTPolicy Number: [id number] Date: 10/07/2017 Xi L Primary Xi L [place] Insurance:MEDICARE [facility]: [place] [address] PART A BPolicy Number: [id number] Regional Hospital [id number] Repository [place] Date:2017-10-07 33662Vtq: () 10/07/2017 Secondary Xi L Ander Insurance:ANTHEMPolicy WarrenDOB: [facility] Number: [id number] Hospital [id number] Repository Date:0590-47-61RH [address] [place] [address] 721[address]OS: 10/07/2017 Tertiary NOT GIVENUNK Dola Insurance:SELF PAY [facility] Number: Effective Repository Date:2017-10-07 10/03/2017 XI L Primary XI L Dola [address] [address] Insurance:[facility]: [place] [address] PART A BPolicy Number: [id number] Regional Hospital [id number] Repository [place] Date:2017-10-03 35926Nkq: () 10/03/2017 Secondary XI L Dola Insurance:ANTHEMPolicy SCOTTDOB: [facility] Number: [id number] Hospital [id number] Repository Date:8879-26-79TA [address]BP[address] [place] [address] 684[address]SD: 10/03/2017 Tertiary NOT GIVENUNK Ander Insurance:SELF PAY [facility] Number: Effective Repository Date:2017-10-03 09/30/2017 Xi L Primary Xi L [place] Insurance:[facility]ARE [facility] [place] [address] PART A BPolicy Number: [id number] Regional Hospital [id number] Repository [place] Date:2017-09-30 49099Rdr: () 09/30/2017 Secondary Xi L [place] Insurance:ANTHEMPolicy ScottDOB: Community Number: [id number] Hospital [id number] Repository Date:7794-56-27RG [address] [place] [address] 77334VT: 09/30/2017 Tertiary NOT GIVENUNK Dola Insurance:SELF PAY [facility] Number: Effective Repository Date:2017-09-30 09/23/2017 Xi L Primary Xi L [place] Insurance:MEDICARE [facility] [place] [address] PART A BPolicy Number: [id number] Regional Hospital [id number] Repository [place] Date:2017-09-23 06438Vyq: () 09/23/2017 Secondary Xi L [place] Insurance:ANTHEMPolicy ScottDOB: Community Number: [id number] Hospital [id number] Repository Date:7505-92-55SR [address] [place] [address] 85294FE: 09/23/2017 Tertiary NOT GIVENUNK Ander Insurance:SELF PAY [facility] Number: Effective Repository Date:2017-09-23 09/17/2017 Xi L Primary Insurance:SELF NOT GIVENUNK An[place] [place] [address] Number: Effective [facility] Date:2017-09-17 Repository [place], [place] [address]Rzd: (HP) 09/09/2017 Xi L Primary Xi L [place] [address] Insurance:MEDICARE ScottB: [place] [id number] PART A BPolicy Number: [id number] Regional Hospital [id number] Repository [place] Date:2017-09-09 64935Kst: (HP) 09/09/2017 Secondary Xi L [place] Insurance:ANTHEMPolicy ScottDOB: Community Number: [id number] Repository Date:0354-14-50VR [address] [place] [address] 764[address]WI: 09/09/2017 Tertiary NOT GIVENUNK Ander Insurance:SELF PAY [facility] Number: Effective Repository Date:2017-09-09 09/02/2017 Xi L Primary Xi L Ander [address] Insurance:MEDICARE ScottDOB: [place] [address] PART A BPolicy Number: [id number] Regional Hospital [id number] Repository [place] Date:2017-09-02 91131Ypj: () 09/02/2017 Secondary Xi L Ander Insurance:ANTHEMPolicy ScottDOB: Community Number: [id number] Repository Date:8301-01-86QN [address] [place] [address] 55591SE: 09/02/2017 Tertiary NOT GIVENUNK Dola Insurance:SELF PAY [facility] Number: Effective Repository Date:2017-09-02 08/29/2017 Xi L Primary Ix L Ander [address] Insurance:MEDICARE ScottDOB: [place] [address] PART A BPolicy Number: [id number] Regional Hospital [id number] Repository [place] Date:2017-08-29 26319Vhr: () 08/29/2017 Secondary Xi L [place] Insurance:ANTHEMPolicy ScottDOB: Community Number: [id number] Repository Date:3971-01-40TW [address]NRTUSAZ, [place] [address]TF: 08/29/2017 Tertiary NOT GIVENUNK Dola Insurance:SELF PAY [facility] Number: Effective Repository Date:2017-08-29 08/23/2017 Xi L Primary Xi L Ander [address] Insurance:MEDICARE ScottDOB: [place] [id number] PART A BPolicy Number: [id number] Regional Hospital [id number] Repository [place] Date:2017-08-23 46582Yta: () 08/23/2017 Secondary Xi L Ander Insurance:ANTHEMPolicy ScottDOB: Community Number: [id number] Repository Date:0983-57-77KF [address] [place] [address] 09370GM: 08/23/2017 Tertiary NOT GIVENUNK Dola Insurance:SELF PAY [facility] Number: Effective Repository Date:2017-08-23 08/19/2017 Xi L Primary Xi L [place] [address] Insurance:MEDICARE ScottDOB: [place] [address] PART A BPolicy Number: [id number] Regional Hospital [id number] Repository [place] Date:2017-08-19 37222Oho: () 08/19/2017 Secondary Xi L [place] Insurance:ANTHEMPolicy ScottDOB: Community Number: [id number] Hospital [id number] Repository Date:6447-82-46RD [address]CVUQ[address] [place] [address] 03257PL: 08/19/2017 Tertiary NOT GIVENUNK Dola Insurance:SELF PAY [facility] Number: Effective Repository Date:2017-08-19 08/12/2017 Xi L Primary Xi L Ander [address] Insurance:MEDICARE ScottDOB: [place] [address] PART A BPolicy Number: [id number] Regional Hospital [id number] Repository [place] Date:2017-08-12 83149Zad: () 08/12/2017 Secondary Ix L [place] Insurance:ANTHEMPolicy ScottDOB: Community Number: [id number] Repository Date:6686-16-30RZ [address]HFVCQMO, [place] [address]AN: 08/12/2017 Tertiary NOT GIVENUNK Ander Insurance:SELF PAY [facility] Number: Effective Repository Date:2017-08-12 08/05/2017 Xi L Primary Xi L [place] [address] Insurance:MEDICARE [facility] [place] [address] PART A BPolicy Number: [id number] Regional Hospital [id number] Repository [place] Date:2017-08-05 29297Wgx: (hp) 08/05/2017 Secondary Xi L Ander Insurance:ANTHEMPolicy ScottDOB: [facility] Number: [id number] Hospital [id number] Repository Date:7997-14-99XL [address]SRTODCD, [place] [address]RO: 08/05/2017 Tertiary NOT GIVENUNK Ander Insurance:SELF PAY [facility] Number: Effective Repository Date:2017-08-05 07/29/2017 Xi L Primary Xi L Ander [address] Insurance:MEDICARE WarrenDOB: [place] [address] PART A BPolicy Number: [id number] Regional Hospital [id number] Repository [place] Date:2017-07-29 19952Sms: () 07/29/2017 Secondary Xi L [place] Insurance:ANTHEMPolicy ScottDOB: [facility] Number: [id number] [facility] [id number] Repository Date:0668-59-06YV [address]PPSOESV, [place] [address]BW: 07/29/2017 Tertiary NOT GIVENUNK Dola Insurance:SELF PAY [facility] Number: Effective Repository Date:2017-07-29 07/22/2017 Xi L Primary Xi L Ander [address] Insurance:MEDICARE WarrenDOB: [place] [address] PART A BPolicy Number: [id number] Regional Hospital [id number] Repository [place] Date:2017-07-22 88664Cxg: () 07/22/2017 Secondary Xi L [place] Insurance:ANTHEMPolicy ScottDOB: Community Number: [id number] Hospital [id number] Repository Date:8069-93-33FS [address] [place] [address] 410[address]JK: 07/22/2017 Tertiary NOT GIVENUNK Ander Insurance:SELF PAY [facility] Number: Effective Repository Date:2017-07-22 07/15/2017 Xi L Primary Xi L [facility] [place] [address] PART A BPolicy Number: [id number] Regional Hospital [id number] Repository [place] Date:2017-07-15 08402Upz: () 07/15/2017 Secondary Xi L Ander Insurance:ANTHEMPolicy ScottDOB: Community Number: [id number] Hospital [id number] Repository Date:0715-45-47GG [address]SUMJBCS[address] [place] [address] 31762PC: 07/15/2017 Tertiary NOT GIVENUNK Ander Insurance:SELF PAY [facility] Number: Effective Repository Date:2017-07-15 07/12/2017 Xi L Primary Xi L [facility] ScottDOB: Insurance:MedicarePoli ScottDOB: System [id number] S cy Number: Effective [id number] [facility] Date: [place], [place] [address]Byp: (HP) 07/12/2017 Secondary Xi L [facility] Insurance:MedicarePoli ScottDOB: System cy Number: Effective [id number] Repository Date: 07/12/2017 Tertiary Xi L [facility] Insurance:[place] ScottDOB: System Cross Blue [id number] Repository ShieldPolicy Number: Effective Date: 07/11/2017 XI L Primary XI L [place]ola [address] Insurance:MEDICARE SCOTTDOB: [facility] PART A BPolicy Number: [id number] Regional Hospital [id number] Repository [place] Date:2017-07-11 89581Gfq: () 07/11/2017 Secondary XI L Ander Insurance:ANTHEMPolicy SCOTTDOB: Community Number: [id number] Hospital [id number] Repository Date:8389-17-76Sd [address] [place] [address] 17146BG: 07/11/2017 Tertiary NOT GIVENUNK Ander Insurance:SELF PAY [facility] Number: Effective Repository Date:2017-07-11 07/11/2017 Xi L Primary Xi L Ander [id number] Insurance:MEDICARE ScottDOB: Community [place] PART A BPolicy Number: [id number], [place] [id number] Repository [address]Xqd: 330) Date:2017-04-03 [id number] () 07/11/2017 Secondary Xi L Ander Insurance:ANTHEMPolicy ScottDOB: Community Number: [id number] Hospital [id number] Repository Date:8786-01-11Ej [address]Rhszzbv, [place] [address]LI: 07/11/2017 Tertiary NOT GIVENUNK Ander Insurance:SELF PAY [facility] Number: Effective Repository Date:2017-04-03 07/11/2017 XI L Primary XI L Ander [id number] Insurance:MEDICARE SCOTTDOB: [facility] [place] PART A BPolicy Number: [id number], [place] [id number] Repository [address]Smh: (330) Date:2017-07-11 [phone] (HP) 07/11/2017 Secondary XI L Ander Insurance:ANTHEMPolicy SCOTTDOB: Community Number: [id number] Hospital [id number] Repository Date:4385-43-84Jv [place], [place] [address]LU: 07/11/2017 Tertiary NOT GIVENUNK Ander Insurance:SELF PAY Community [facility] Number: Effective Repository Date:2017-07-11 07/08/2017 Xi L Primary Insurance:SELF NOT GIVENUNK Ander [id number] PAY [employer] Community [place] Number: [place] Date:2017-07-08 Repository [id number]: () 07/05/2017 Xi L Primary Insurance:SELF NOT GIVENUNK Ander [id number] PAY [employer] Community [place] Number: [place] [facility] [place] Date:2017-07-05 Repository 26550Rni: () 07/01/2017 Xi L Primary Insurance:SELF NOT GIVENUNK Dola [id number] PAY [employer] Community [place] Number: Effective Hospital [facility] [place] Date:2017-07-01 Repository [id number]: () 06/24/2017 Xi L Primary Insurance:SELF NOT GIVENUNK Dola [id number] PAY [employer] Community [place] Number: [place] [facility] [place] Date:2017-06-24 Repository 45635Gbp: () 06/17/2017 Xi L Primary Insurance:SELF NOT GIVENUNK Ander [id number] PAY INSURANCEPolicy [facility] [place] [facility]: [facility] [place] Date:2017-06-17 Repository [id number]: () 06/14/2017 Xi L Primary Insurance:SELF NOT GIVENUNK Ander [id number] PAY [employer] [facility] [place] [facility]: [facility] [place] Date:2017-06-14 Repository [id number]: () 06/09/2017 Xi L Primary Insurance:SELF NOT GIVENUNK Ander [id number] PAY [employer]UR[employer]Policy [facility] [place] Number: [facility] [place] Date:2017-06-09 Repository 67591Vjd: () 06/07/2017 Xi L Primary Insurance:SELF NOT GIVENUNK Dola [id number] PAY [employer]UR[employer]Policy [facility] [place] Number: Effective [facility] Date:2017-06-07 Repository [id number]: () 06/03/2017 Xi L Primary Insurance:SELF NOT GIVENUNK Dola [id number] PAY [employer]UR[employer]Policy [facility] [place] Number: Effective [facility] Date:2017-06-03 Repository [id number]: () 05/31/2017 Xi L Primary Insurance:SELF NOT GIVENUNK Dola [id number] PAY [employer]UR[employer]Policy [facility] [place] Number: Effective [facility] Date:2017-05-31 Repository [id number]: () 05/27/2017 Xi L Primary Insurance:SELF NOT GIVENUNK Ander [id number] PAY INSUR[employer]Policy [facility] [place] Number: Effective Hospital [facility] Date:2017-05-27 Repository [id number]: () 05/20/2017 Xi L Primary Insurance:SELF NOT GIVENUNK Dola [id number] PAY [facility]UR[facility]Policy [facility] [place] Number: Effective [facility] Date:2017-05-20 Repository [id number]: ()
== END ==
LOC: OLS.WCC 05:00
PROVIDERS: Visit Provider Family Medicine
DX: D64.9 Anemia, unspecified (principal); I10 Essential (primary) hypertension
CPT/HCPCS: 36415; 80048

== ENCOUNTER → 2018-04-17 05:00 | Outpatient (REF) | payer MEDICARE, BC, SELFPAY ==
[2018-04-17 07:47] LABS: Hematocrit 37.2 % (37-47); Hemoglobin 11.8 g/dl (12.0-15.0); Mean Corp Hgb Conc 31.7 g/gl (32-36); Mean Corpuscular Hgb 31.5 pg (27.0-32.0); Mean Corpuscular Volume 99.2 fL (81-99); Mean Platelet Vol. 11.3 fl (6.2-12.0); Platelet Count 170 K/mm3 (150-450); RBC Distribution Width SD 57.9 fl (35.1-43.9); Red Blood Count 3.75 M/mm3 (4.2-5.4); White Blood Count 4.4 K/mm3 (4.4-11.0)
[2018-04-17 07:51] LABS: Scan Indicated on CBC? Y/N NO
[2018-04-17 08:00] LABS: ALB/GLOB Ratio 0.9 RATIO (0.9-2.4); AST(SGOT) 21 U/L (15-37); Alanine Aminotransfer ALT/SGPT 13 U/L (13-56); Albumin, Serum 2.2 g/dL (3.2-5.0); Alkaline Phosphatase 82 U/L (45-117); Amylase 16 U/L (25-115); Anion Gap 8 (5-15); BUN 19 mg/dL (7-18); BUN/Creat Ratio 19.2 RATIO (10-20); Calcium,Total 7.9 mg/dL (8.5-10.1); Chloride 106 mmol/L (98-107); Creatinine, Serum 0.99 mg/dL (0.55-1.02); EST Glomerular Filtration Rate 57 mL/min (>60); Est Glom Filt Rate - Afr Amer 69 mL/min (>60); Globulin 2.5 g/dL (2.2-4.2); Glucose 78 mg/dL (74-106); Lipase 40 U/L (73-393); Potassium 3.9 mmol/L (3.5-5.1); Protein, Total 4.7 g/dL (6.4-8.2); Sodium Level 141 mmol/L (136-145)
== END ==
LOC: OLS.WCC 05:00
PROVIDERS: Visit Provider Family Medicine
DX: I10 Essential (primary) hypertension (principal); F03.90 Unspecified dementia, unspecified severity, without behavioral disturbance, psychotic disturbance, mood disturbance, and anxiety; R63.4 Abnormal weight loss; R11.2 Nausea with vomiting, unspecified
CPT/HCPCS: 36415; 80053; 82150; 83690; 85027

== ENCOUNTER → 2018-05-05 05:00 | Outpatient (REF) | payer MEDICARE, BC, SELFPAY ==
[2018-05-05 09:42] LABS: Anion Gap 7 (5-15); BUN 16 mg/dL (7-18); Calcium,Total 7.7 mg/dL (8.5-10.1); Chloride 108 mmol/L (98-107); Creatinine, Serum 0.89 mg/dL (0.55-1.02); EST Glomerular Filtration Rate 65 mL/min (>60); Est Glom Filt Rate - Afr Amer 78 mL/min (>60); Glucose 76 mg/dL (74-106); Potassium 3.6 mmol/L (3.5-5.1); Sodium Level 142 mmol/L (136-145)
== END ==
LOC: OLS.WCC 05:00
PROVIDERS: Visit Provider Family Medicine
DX: D64.9 Anemia, unspecified (principal); I10 Essential (primary) hypertension
CPT/HCPCS: 36415; 80048

== ENCOUNTER → 2018-05-16 08:14 | Outpatient (CLI) | payer MEDICARE, BC, SELFPAY ==
--- NOTE | 2018-05-16 08:20 | RAD_ITS ---
STUDY: UPPER GI SERIES. REASON FOR EXAM: Female, 83 years old. Decreased appetite. Loss of height. FLUOROSCOPY TIME (if supplied): (1:27) minutes/seconds TECHNIQUE: This is a limited study due to the patient's condition. The patient ingested barium. Imaging of the esophagus and stomach were obtained. COMPARISON: None. FINDINGS: There is evidence of tertiary contractions of the distal portion of the esophagus. There is no evidence of obstruction. No evidence of gastroesophageal reflux. There is evidence of a diverticulum in the fundal portion of the stomach emptied with a fundus tail diverticulum. No evidence of ulceration. No mass lesion is seen. 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 Electronically Signed: Felipe Gardner MD at 14:55 EST , Service support ,
== END ==
PROVIDERS: Family Provider Family Medicine; PCP Family Medicine; Referring Provider Family Medicine; Visit Provider Family Medicine
DX: R63.4 Abnormal weight loss (principal); K31.4 Gastric diverticulum
CPT/HCPCS: 74246

== ENCOUNTER → 2018-05-26 04:00 | Outpatient (REF) | payer MEDICARE, BC, SELFPAY ==
[2018-05-26 08:30] LABS: Anion Gap 4 (5-15); BUN 18 mg/dL (7-18); BUN/Creat Ratio 18.4 RATIO (10-20); Calcium,Total 7.9 mg/dL (8.5-10.1); Chloride 110 mmol/L (98-107); Creatinine, Serum 0.98 mg/dL (0.55-1.02); EST Glomerular Filtration Rate 58 mL/min (>60); Est Glom Filt Rate - Afr Amer 70 mL/min (>60); Glucose 79 mg/dL (74-106); Potassium 4.1 mmol/L (3.5-5.1); Sodium Level 144 mmol/L (136-145); Thyroid Stim Hormone (TSH) 6.11 uIU/mL (0.358-3.74)
== END ==
LOC: OLS.WCC 04:00
PROVIDERS: Visit Provider Family Medicine
DX: D64.9 Anemia, unspecified (principal); I10 Essential (primary) hypertension; Z79.899 Other long term (current) drug therapy
CPT/HCPCS: 36415; 80048; 84443

== ENCOUNTER → 2018-07-01 05:30 | Outpatient (REF) | payer MEDICARE, BC, SELFPAY ==
[2018-07-01 09:06] LABS: Hematocrit 32.3 % (37-47); Hemoglobin 9.7 g/dl (12.0-15.0); Mean Corpuscular Hgb 31.7 pg (27.0-32.0); Mean Corpuscular Volume 105.6 fL (81-99); Mean Platelet Vol. 11.8 fl (6.2-12.0); Platelet Count 125 K/mm3 (150-450); RBC Distribution Width CV 13.8 % (11.6-14.6); Red Blood Count 3.06 M/mm3 (4.2-5.4); White Blood Count 2.3 K/mm3 (4.4-11.0)
[2018-07-01 09:07] LABS: Scan Indicated on CBC? Y/N NO
[2018-07-01 09:27] LABS: Anion Gap 8 (5-15); BUN 15 mg/dL (7-18); BUN/Creat Ratio 14.3 RATIO (10-20); Calcium,Total 7.9 mg/dL (8.5-10.1); Chloride 110 mmol/L (98-107); Creatinine, Serum 1.05 mg/dL (0.55-1.02); EST Glomerular Filtration Rate 53 mL/min (>60); Est Glom Filt Rate - Afr Amer 65 mL/min (>60); Glucose 89 mg/dL (74-106); Potassium 4.1 mmol/L (3.5-5.1); Sodium Level 146 mmol/L (136-145)
== END ==
LOC: OLS.WCC 05:30
PROVIDERS: Visit Provider Family Medicine
DX: D64.9 Anemia, unspecified (principal); I10 Essential (primary) hypertension
CPT/HCPCS: 36415; 80048; 85027

== ENCOUNTER → 2018-07-07 20:00 | Outpatient (REF) | payer MEDICARE, BC, SELFPAY ==
[2018-07-08 08:30] LABS: Mucous, Urine 0 SEEN /hpf (<or=2+)
[2018-07-08 08:40] LABS: Color, Urine Yellow (Yellow); Glucose, Dipstick Normal (Normal); Ketone-Dipstick 5 mg/dl (Negative); Leukocyte Esterase-Dipstick 500 /ul (Negative); Nitrite-Dipstick Negative (Negative); Occult Blood-Urine 50 /ul (Negative); Protein-Dipstick 30 mg/dl (Negative); Specific Gravity, Urine 1.015 (1.002-1.030); Urine Bilirubin Dipstick Negative (Negative); Urine Clarity Cloudy (Clear); Urine Urobilinogen Normal (Normal)
[2018-07-08 08:50] LABS: White Blood Cells >100 SEEN /hpf (0-5)
[2018-07-08 08:51] LABS: Bacteria 1+ /hpf (None Seen); Red Blood Cells-Urine 0-5 SEEN /hpf (0-5); Squamous Epithelial Cells - UA 0-5 SEEN /hpf (5-10)
== END ==
LOC: OLS.WCC 20:00
PROVIDERS: Visit Provider Family Medicine
DX: R30.0 Dysuria (principal)
CPT/HCPCS: 81001; 87086; 87088; 87186

== ENCOUNTER → 2018-07-17 05:45 | Outpatient (REF) | payer MEDICARE, BC, SELFPAY ==
[2018-07-17 09:59] LABS: Hemoglobin A1c 4.7 % (4.2-6.3)
[2018-07-19 11:07] LABS: Albumin 2.7 g/dL (2.9-4.4); Alpha-1-Globulins 0.2 g/dL (0.0-0.4); Alpha-2-Globulins 0.6 g/dL (0.4-1.0); Gamma Globulin 0.6 g/dL (0.4-1.8); Immunoglobulin A 244 mg/dL (64-422); Immunoglobulin G 558 mg/dL (700-1600); Immunoglobulin M 66 mg/dL (26-217); PROEL- TOTAL PROTEIN 4.9 g/dL (6.0-8.5)
[2018-07-21 13:44] LABS: IMMUNOFIXATION RESULT,S Comment: (.)
[2018-07-21 13:45] LABS: Copper, Serum or Plasma 94 ug/dL (72-166)
[2018-07-21 13:55] LABS: Albumin, Ur 15.3 % (.); Alpha-1-Globulin, Ur 7.6 % (.); Beta Globulin, Ur 42.5 % (.); Gamma Globulin, Ur 19.6 % (.); M-Spike, Ur % Not Observed % (Not Observed); Total Protein, Ur 10.6 mg/dL (Not Estab.)
== END ==
LOC: OLS.WCC 05:45
DX: G62.9 Polyneuropathy, unspecified (principal)
CPT/HCPCS: 36415; 82390; 82525; 82784; 83036; 84165; 84166; 86334; 86335

== ENCOUNTER → 2018-08-01 05:00 | Outpatient (REF) | payer MEDICARE, BC, SELFPAY ==
[2018-08-01 08:32] LABS: Anion Gap 5 (5-15); BUN 23 mg/dL (7-18); BUN/Creat Ratio 19.5 RATIO (10-20); Calcium,Total 8.1 mg/dL (8.5-10.1); Chloride 110 mmol/L (98-107); Cholesterol 150 mg/dL (200); Creatinine, Serum 1.18 mg/dL (0.55-1.02); EST Glomerular Filtration Rate 47 mL/min (>60); Est Glom Filt Rate - Afr Amer 56 mL/min (>60); Glucose 82 mg/dL (74-106); High Density Lipoprotein 44 mg/dL; Potassium 4.1 mmol/L (3.5-5.1); Sodium Level 144 mmol/L (136-145); Thyroid Stim Hormone (TSH) 4.68 uIU/mL (0.358-3.74); Triglycerides 99 mg/dL; Very Low Density Lipoprotein 20 mg/dL (5-40)
== END ==
LOC: OLS.WCC 05:00
PROVIDERS: Visit Provider Family Medicine
DX: D64.9 Anemia, unspecified (principal); I10 Essential (primary) hypertension; E03.9 Hypothyroidism, unspecified
CPT/HCPCS: 36415; 80048; 80061; 84443

== ENCOUNTER → 2018-09-01 05:00 | Outpatient (REF) | payer MEDICARE, BC, SELFPAY ==
[2018-09-01 09:20] LABS: Anion Gap 4 (5-15); BUN 25 mg/dL (7-18); BUN/Creat Ratio 23.1 RATIO (10-20); Calcium,Total 8.3 mg/dL (8.5-10.1); Chloride 109 mmol/L (98-107); Creatinine, Serum 1.08 mg/dL (0.55-1.02); EST Glomerular Filtration Rate 52 mL/min (>60); Est Glom Filt Rate - Afr Amer 62 mL/min (>60); Glucose 92 mg/dL (74-106); Potassium 4.1 mmol/L (3.5-5.1); Sodium Level 141 mmol/L (136-145)
== END ==
LOC: OLS.WCC 05:00
PROVIDERS: Visit Provider Family Medicine
DX: D64.9 Anemia, unspecified (principal); I10 Essential (primary) hypertension
CPT/HCPCS: 36415; 80048

== ENCOUNTER → 2018-10-02 | Outpatient (REF) | payer MEDICARE, BC, SELFPAY ==
[2018-10-02 08:02] LABS: Anion Gap 1 (5-15); BUN 33 mg/dL (7-18); Calcium,Total 8.3 mg/dL (8.5-10.1); Chloride 109 mmol/L (98-107); Creatinine, Serum 1.18 mg/dL (0.55-1.02); EST Glomerular Filtration Rate 47 mL/min (>60); Est Glom Filt Rate - Afr Amer 56 mL/min (>60); Glucose 94 mg/dL (74-106); Potassium 3.9 mmol/L (3.5-5.1); Sodium Level 141 mmol/L (136-145)
== END | disposition home or self-care (01) ==
LOC: OLS.WCC 04:55
PROVIDERS: Visit Provider Family Medicine
DX: D64.9 Anemia, unspecified (principal); I10 Essential (primary) hypertension
CPT/HCPCS: 36415; 80048

== ENCOUNTER → 2018-10-21 04:00 | Outpatient (REF) | payer SELFPAY ==
[2018-10-22 16:07] LABS: Alpha-1-Globulins 0.2 g/dL (0.0-0.4); Alpha-2-Globulins 0.6 g/dL (0.4-1.0); Gamma Globulin 0.6 g/dL (0.4-1.8); Immunoglobulin A 256 mg/dL (64-422); Immunoglobulin G 618 mg/dL (700-1600); Immunoglobulin M 67 mg/dL (26-217); PROEL- TOTAL PROTEIN 5.3 g/dL (6.0-8.5)
[2018-10-27 14:06] LABS: Albumin, Ur 27.9 % (.); Alpha-2-Globulins, Ur 4.6 % (.); Beta Globulin, Ur 26.7 % (.); Gamma Globulin, Ur 39.8 % (.); M-Spike, Ur % Not Observed % (Not Observed); Total Protein, Ur 21.7 mg/dL (Not Estab.)
== END ==
LOC: OLS.WCC 04:00
DX: G62.9 Polyneuropathy, unspecified (principal)
CPT/HCPCS: 36415; 82784; 84165; 84166; 86334; 86335

== ENCOUNTER → 2018-10-31 05:00 | Outpatient (REF) | payer MEDICARE, BC, SELFPAY ==
[2018-10-31 08:19] LABS: Anion Gap 3 (5-15); BUN 26 mg/dL (7-18); BUN/Creat Ratio 24.8 RATIO (10-20); Calcium,Total 8.6 mg/dL (8.5-10.1); Chloride 109 mmol/L (98-107); Creatinine, Serum 1.05 mg/dL (0.55-1.02); EST Glomerular Filtration Rate 53 mL/min (>60); Est Glom Filt Rate - Afr Amer 64 mL/min (>60); Glucose 93 mg/dL (74-106); Potassium 4.1 mmol/L (3.5-5.1); Sodium Level 141 mmol/L (136-145)
== END ==
LOC: OLS.WCC 05:00
PROVIDERS: Visit Provider Family Medicine
DX: I10 Essential (primary) hypertension (principal); D64.9 Anemia, unspecified
CPT/HCPCS: 36415; 80048

== ENCOUNTER → 2018-12-01 04:45 | Outpatient (REF) | payer MEDICARE, BC, SELFPAY ==
[2018-12-01 08:55] LABS: Anion Gap 6 (5-15); BUN 32 mg/dL (7-18); BUN/Creat Ratio 31.4 RATIO (10-20); Calcium,Total 8.1 mg/dL (8.5-10.1); Chloride 112 mmol/L (98-107); Creatinine, Serum 1.02 mg/dL (0.55-1.02); EST Glomerular Filtration Rate 55 mL/min (>60); Est Glom Filt Rate - Afr Amer 67 mL/min (>60); Glucose 93 mg/dL (74-106); Potassium 3.8 mmol/L (3.5-5.1); Sodium Level 148 mmol/L (136-145)
== END ==
LOC: OLS.WCC 04:45
PROVIDERS: Visit Provider Family Medicine
DX: D64.9 Anemia, unspecified (principal); I10 Essential (primary) hypertension
CPT/HCPCS: 36415; 80048

== ENCOUNTER → 2019-01-01 05:00 | Outpatient (REF) | payer MEDICARE, BC, SELFPAY ==
[2019-01-01 09:53] LABS: Hematocrit 36.8 % (37-47); Hemoglobin 11.3 g/dL (12.0-15.0); Mean Corp Hgb Conc 30.7 g/dL (32-36); Mean Corpuscular Hgb 31.3 pg (27.0-32.0); Mean Corpuscular Volume 101.9 fL (81-99); Mean Platelet Vol. 11.9 fl (6.2-12.0); Platelet Count 118 K/mm3 (150-450); RBC Distribution Width CV 14.1 % (11.6-14.6); RBC Distribution Width SD 53.6 fl (35.1-43.9); Red Blood Count 3.61 M/mm3 (4.2-5.4); White Blood Count 3.1 K/mm3 (4.4-11.0)
[2019-01-01 10:01] LABS: Anion Gap 2 (5-15); BUN 17 mg/dL (7-18); BUN/Creat Ratio 15.6 RATIO (10-20); Calcium,Total 8.2 mg/dL (8.5-10.1); Chloride 109 mmol/L (98-107); Creatinine, Serum 1.09 mg/dL (0.55-1.02); EST Glomerular Filtration Rate 51 mL/min (>60); Est Glom Filt Rate - Afr Amer 62 mL/min (>60); Glucose 104 mg/dL (74-106); Sodium Level 142 mmol/L (136-145)
== END ==
LOC: OLS.WCC 05:00
PROVIDERS: Visit Provider Family Medicine
DX: D64.9 Anemia, unspecified (principal); I10 Essential (primary) hypertension
CPT/HCPCS: 36415; 80048; 85027

== ENCOUNTER → 2019-02-02 | Outpatient (REF) | payer MEDICARE, BC, SELFPAY ==
[2019-02-02 08:42] LABS: Anion Gap 4 (5-15); BUN 19 mg/dL (7-18); BUN/Creat Ratio 17.9 RATIO (10-20); Calcium,Total 7.9 mg/dL (8.5-10.1); Chloride 111 mmol/L (98-107); Cholesterol 151 mg/dL (200); Creatinine, Serum 1.06 mg/dL (0.55-1.02); EST Glomerular Filtration Rate 53 mL/min (>60); Est Glom Filt Rate - Afr Amer 64 mL/min (>60); Glucose 87 mg/dL (74-106); High Density Lipoprotein 49 mg/dL; Potassium 4.2 mmol/L (3.5-5.1); Sodium Level 145 mmol/L (136-145); Thyroid Stim Hormone (TSH) 5.34 uIU/mL (0.358-3.74); Triglycerides 76 mg/dL; Very Low Density Lipoprotein 15 mg/dL (5-40)
== END | disposition home or self-care (01) ==
LOC: OLS.WCC 04:00
PROVIDERS: Visit Provider Family Medicine
DX: D64.9 Anemia, unspecified (principal); I10 Essential (primary) hypertension; E78.5 Hyperlipidemia, unspecified; E03.9 Hypothyroidism, unspecified
CPT/HCPCS: 36415; 80048; 80061; 84443

== ENCOUNTER → 2019-03-03 05:00 | Outpatient (REF) | payer MEDICARE, BC, SELFPAY ==
[2019-03-03 07:54] LABS: Anion Gap 5 (5-15); BUN 18 mg/dL (7-18); BUN/Creat Ratio 15.8 RATIO (10-20); Calcium,Total 8.1 mg/dL (8.5-10.1); Chloride 109 mmol/L (98-107); Creatinine, Serum 1.14 mg/dL (0.55-1.02); EST Glomerular Filtration Rate 48 mL/min (>60); Est Glom Filt Rate - Afr Amer 59 mL/min (>60); Glucose 93 mg/dL (74-106); Potassium 4.1 mmol/L (3.5-5.1); Sodium Level 143 mmol/L (136-145)
== END ==
LOC: OLS.WCC 05:00
PROVIDERS: Visit Provider Family Medicine
DX: D64.9 Anemia, unspecified (principal); I10 Essential (primary) hypertension
CPT/HCPCS: 36415; 80048

== ENCOUNTER → 2019-03-31 20:30 | Outpatient (REF) | payer MEDICARE, BC, SELFPAY ==
[2019-04-01 06:56] LABS: Color, Urine Yellow (Yellow); Glucose, Dipstick Normal (Normal); Ketone-Dipstick 15 mg/dl (Negative); Leukocyte Esterase-Dipstick 100 /ul (Negative); Nitrite-Dipstick Negative (Negative); Occult Blood-Urine 250 /ul (Negative); Protein-Dipstick 100 mg/dl (Negative); Urine Bilirubin Dipstick Negative (Negative); Urine Clarity Turbid (Clear); Urine Urobilinogen 4 mg/dl (Normal)
== END ==
LOC: OLS.WCC 20:30
PROVIDERS: Visit Provider Family Medicine
DX: R30.0 Dysuria (principal)
CPT/HCPCS: 81002; 87077; 87086; 87088; 87186

== ENCOUNTER → 2019-04-02 05:00 | Outpatient (REF) | payer MEDICARE, BC, SELFPAY ==
[2019-04-02 08:22] LABS: Anion Gap 4 (5-15); BUN 37 mg/dL (7-18); BUN/Creat Ratio 30.1 RATIO (10-20); Calcium,Total 7.7 mg/dL (8.5-10.1); Chloride 110 mmol/L (98-107); Creatinine, Serum 1.23 mg/dL (0.55-1.02); EST Glomerular Filtration Rate 44 mL/min (>60); Est Glom Filt Rate - Afr Amer 54 mL/min (>60); Glucose 95 mg/dL (74-106); Potassium 4.3 mmol/L (3.5-5.1); Sodium Level 142 mmol/L (136-145)
== END ==
LOC: OLS.WCC 05:00
PROVIDERS: Visit Provider Family Medicine
DX: I10 Essential (primary) hypertension (principal); D64.9 Anemia, unspecified
CPT/HCPCS: 36415; 80048

== ENCOUNTER → 2019-04-27 18:00 | Outpatient (REF) | payer MEDICARE, BC, SELFPAY ==
[2019-04-28 08:05] LABS: Color, Urine Yellow (Yellow); Glucose, Dipstick Normal (Normal); Ketone-Dipstick 5 mg/dl (Negative); Leukocyte Esterase-Dipstick 500 /ul (Negative); Nitrite-Dipstick Positive (Negative); Occult Blood-Urine 250 /ul (Negative); Protein-Dipstick 30 mg/dl (Negative); Urine Bilirubin Dipstick Negative (Negative); Urine Clarity Cloudy (Clear); Urine Urobilinogen Normal (Normal)
== END ==
LOC: OLS.WCC 18:00
PROVIDERS: Family Provider Family Medicine; PCP Family Medicine; Visit Provider Family Medicine
DX: R35.0 Frequency of micturition (principal); R31.9 Hematuria, unspecified
CPT/HCPCS: 81002; 87086; 87088; 87186

== ENCOUNTER → 2019-05-04 05:00 | Outpatient (REF) | payer MEDICARE, BC, SELFPAY ==
[2019-05-04 07:33] LABS: Anion Gap 3 (5-15); BUN 26 mg/dL (7-18); BUN/Creat Ratio 21.1 RATIO (10-20); Calcium,Total 8.3 mg/dL (8.5-10.1); Chloride 112 mmol/L (98-107); Creatinine, Serum 1.23 mg/dL (0.55-1.02); EST Glomerular Filtration Rate 44 mL/min (>60); Est Glom Filt Rate - Afr Amer 54 mL/min (>60); Glucose 93 mg/dL (74-106); Sodium Level 145 mmol/L (136-145)
== END ==
LOC: OLS.WCC 05:00
PROVIDERS: Family Provider Family Medicine; PCP Family Medicine; Visit Provider Family Medicine
DX: D64.9 Anemia, unspecified (principal); I10 Essential (primary) hypertension
CPT/HCPCS: 36415; 80048

== ENCOUNTER → 2019-07-02 05:00 | Outpatient (REF) | payer MEDICARE, BC, SELFPAY ==
[2019-07-02 09:00] LABS: Hematocrit 35.3 % (37-47); Hemoglobin 10.9 g/dL (12.0-15.0); Mean Corp Hgb Conc 30.9 g/dL (32-36); Mean Corpuscular Hgb 31.4 pg (27.0-32.0); Mean Corpuscular Volume 101.7 fL (81-99); Mean Platelet Vol. 11.6 fl (6.2-12.0); Platelet Count 132 K/mm3 (150-450); RBC Distribution Width CV 13.6 % (11.6-14.6); RBC Distribution Width SD 51.3 fl (35.1-43.9); Red Blood Count 3.47 M/mm3 (4.2-5.4); White Blood Count 4.5 K/mm3 (4.4-11.0)
== END ==
LOC: OLS.WCC 05:00
PROVIDERS: PCP Family Medicine; Visit Provider Family Medicine
DX: D64.9 Anemia, unspecified (principal); I10 Essential (primary) hypertension
CPT/HCPCS: 36415; 85027

== ENCOUNTER → 2019-11-02 05:00 | Outpatient (REF) | payer MEDICARE, BC, SELFPAY ==
[2019-11-02 08:10] LABS: Hematocrit 37.1 % (37-47); Hemoglobin 11.3 g/dL (12.0-15.0); Mean Corp Hgb Conc 30.5 g/dL (32-36); Mean Corpuscular Hgb 31.5 pg (27.0-32.0); Mean Corpuscular Volume 103.3 fL (81-99); Mean Platelet Vol. 11.8 fl (6.2-12.0); Platelet Count 126 K/mm3 (150-450); RBC Distribution Width CV 13.4 % (11.6-14.6); RBC Distribution Width SD 51.3 fl (35.1-43.9); Red Blood Count 3.59 M/mm3 (4.2-5.4); White Blood Count 3.2 K/mm3 (4.4-11.0)
[2019-11-02 08:34] LABS: Anion Gap 3 (5-15); BUN 26 mg/dL (7-18); BUN/Creat Ratio 20.5 RATIO (10-20); Calcium,Total 7.9 mg/dL (8.5-10.1); Chloride 113 mmol/L (98-107); Cholesterol 164 mg/dL (200); Creatinine, Serum 1.27 mg/dL (0.55-1.02); EST Glomerular Filtration Rate 43 mL/min (>60); Est Glom Filt Rate - Afr Amer 52 mL/min (>60); Glucose 89 mg/dL (74-106); High Density Lipoprotein 45 mg/dL; Potassium 3.9 mmol/L (3.5-5.1); Sodium Level 144 mmol/L (136-145); Thyroid Stim Hormone (TSH) 4.29 uIU/mL (0.358-3.74); Triglycerides 130 mg/dL; Very Low Density Lipoprotein 26 mg/dL (5-40)
== END ==
LOC: OLS.WCC 05:00
PROVIDERS: PCP Family Medicine; Visit Provider Family Medicine
DX: D64.9 Anemia, unspecified (principal); I10 Essential (primary) hypertension; E78.5 Hyperlipidemia, unspecified; E03.9 Hypothyroidism, unspecified
CPT/HCPCS: 36415; 80048; 80061; 84443; 85027

== ENCOUNTER → 2019-12-15 05:04 | Outpatient (REF) | payer MEDICARE, BC, SELFPAY ==
[2019-12-15 08:11] LABS: Thyroid Stim Hormone (TSH) 0.41 uIU/mL (0.358-3.74)
== END ==
LOC: OLS.WCC 05:04
PROVIDERS: PCP Family Medicine; Referring Provider Family Medicine; Visit Provider Family Medicine
DX: E03.9 Hypothyroidism, unspecified (principal)
CPT/HCPCS: 36415; 84443

== ENCOUNTER → 2019-12-16 14:04 | Outpatient (REF) | payer MEDICARE, BC, SELFPAY | LOC: OLS.WCC 14:04 | PROVIDERS: PCP Family Medicine; Referring Provider Family Medicine; Visit Provider Family Medicine | DX: Z20.828 Contact with and (suspected) exposure to other viral communicable diseases (principal) | CPT/HCPCS: 87635; U0003 ==

== ENCOUNTER → 2020-02-02 05:00 | Outpatient (REF) | payer MEDICARE, BC, SELFPAY ==
[2020-02-02 10:06] LABS: Anion Gap 3 (5-15); BUN 63 mg/dL (7-18); BUN/Creat Ratio 52.1 RATIO (10-20); Calcium,Total 8.7 mg/dL (8.5-10.1); Chloride 114 mmol/L (98-107); Creatinine, Serum 1.21 mg/dL (0.55-1.02); EST Glomerular Filtration Rate 45 mL/min (>60); Est Glom Filt Rate - Afr Amer 55 mL/min (>60); Glucose 46 mg/dL (74-106); Potassium 4.6 mmol/L (3.5-5.1); Sodium Level 140 mmol/L (136-145)
== END ==
LOC: OLS.WCC 05:00
PROVIDERS: PCP Family Medicine; Visit Provider Family Medicine
DX: D64.9 Anemia, unspecified (principal); I10 Essential (primary) hypertension
CPT/HCPCS: 36415; 80048

== ENCOUNTER → 2020-05-03 05:00 | Outpatient (REF) | payer MEDICARE, BC, SELFPAY ==
[2020-05-03 07:05] LABS: Mean Corp Hgb Conc 30.6 g/dL (32-36); Mean Corpuscular Hgb 31.1 pg (27.0-32.0); Mean Corpuscular Volume 101.7 fL (81-99); Mean Platelet Vol. 11.6 fl (6.2-12.0); Platelet Count 119 K/mm3 (150-450); RBC Distribution Width CV 12.8 % (11.6-14.6); RBC Distribution Width SD 48.3 fl (35.1-43.9); Red Blood Count 3.54 M/mm3 (4.2-5.4); White Blood Count 4.1 K/mm3 (4.4-11.0)
[2020-05-03 07:40] LABS: Anion Gap 5 (5-15); BUN 21 mg/dL (7-18); BUN/Creat Ratio 16.8 RATIO (10-20); Calcium,Total 7.8 mg/dL (8.5-10.1); Chloride 110 mmol/L (98-107); Cholesterol 156 mg/dL (200); Creatinine, Serum 1.25 mg/dL (0.55-1.02); EST Glomerular Filtration Rate 43 mL/min (>60); Est Glom Filt Rate - Afr Amer 53 mL/min (>60); Glucose 84 mg/dL (74-106); High Density Lipoprotein 41 mg/dL; Potassium 3.9 mmol/L (3.5-5.1); Sodium Level 144 mmol/L (136-145); Thyroid Stim Hormone (TSH) 2.53 uIU/mL (0.358-3.74); Triglycerides 92 mg/dL; Very Low Density Lipoprotein 18 mg/dL (5-40)
== END ==
LOC: OLS.WCC 05:00
PROVIDERS: PCP Family Medicine; Referring Provider Family Medicine; Visit Provider Family Medicine
DX: D64.9 Anemia, unspecified (principal); I10 Essential (primary) hypertension; E78.5 Hyperlipidemia, unspecified; E03.9 Hypothyroidism, unspecified
CPT/HCPCS: 36415; 80048; 80061; 84443; 85027

== ENCOUNTER 2020-06-23 11:13 | Emergency (ER) | payer MEDICARE, BC, SELFPAY ==
[2020-06-23 11:14] VITALS: BP 158/76; PULSE 73; RESP 18; TEMP 36.3; O2SAT 96; BMI 28.0
--- NOTE | 2020-06-23 11:14 | RAD_ITS ---
STUDY: X-RAY CHEST REASON FOR EXAM: Female, 85 years old. Preop TECHNIQUE: Single AP portable view of the chest. COMPARISON: Comparison is made with prior study dated 07/11/2017. FINDINGS: EKG electrodes are seen. Stable minimal increased linear markings at the left lung base suggestive of scarring. There is no demonstrated pleural abnormality. There is moderate cardiac enlargement. Calcification of the mitral valve annulus. Normal mediastinum and fritz. Normal visualized pulmonary arteries. There is atherosclerotic calcification of the aortic arch with tortuosity. There is demineralization of the osseous structures. Prior vertebroplasty of the T12 and L1 vertebrae. Status post bilateral shoulder prostheses. There is no demonstrated abnormality of the visualized soft tissue structures of the upper abdomen. RAD/Chest 1 View (Portable) IMPRESSION: Mild increased markings at the left lung base suggestive of scarring. There has been no change. Electronically Signed: Felipe Gardner MD at 12:43 EST , Service support ,
--- NOTE | 2020-06-23 11:15 | EKG12_ITS ---
Test Reason : Blood Pressure : / mmHG Vent. Rate : 073 BPM Atrial Rate : 073 BPM P-R Int : 168 ms QRS Dur : 076 ms QT Int : 418 ms P-R-T Axes : 057 024 060 degrees QTc Int : 460 ms Normal sinus rhythm Low voltage QRS Borderline ECG When compared with ECG of 11-JUL-2017 21:44, QT has lengthened Confirmed by ERICA ADAMS, HELLEN ([id number]), material expeditor VIOLA VERONICA ([id number]) on 07/04/2020 11:49:40 A M Referred By: LONG Confirmed By:KRUNAL MALDONADO MD
--- NOTE | 2020-06-23 11:16 | RAD_ITS ---
STUDY: X-RAY - LUMBAR SPINE REASON FOR EXAM: Female, 85 years old. Injury/Pain TECHNIQUE: 3 view(s) of the lumbar spine were obtained. COMPARISON: None FINDINGS: Normal lumbar lordosis. There is no substantial scoliosis. There is a normal alignment of the vertebrae. There is generalized demineralization of the vertebral bodies. Vertebroplasty of the T12 and L1 vertebrae with loss of height. Stable loss of height of the superior endplate of the L4 and L5 vertebrae. There is multi-level degenerative disc disease with multi-level disc space narrowing. There is atherosclerotic calcification of the abdominal aorta without a demonstrated aneurysm. RAD/Lumbar Spine 2 or 3 Views IMPRESSION: Generalized demineralization of the vertebral bodies with stable loss of height of the superior endplate of the L4 and L5 vertebrae. Prior vertebroplasty of the T12 and L1 vertebrae without loss of height. Electronically Signed: Felipe Gardner MD at 12:42 EST , Service support ,
--- NOTE | 2020-06-23 11:16 | RAD_ITS ---
STUDY: X-RAY - RIGHT FEMUR REASON FOR STUDY: Female, 85 years old. Injury/Pain TECHNIQUE: 4 view(s) of the femur. COMPARISON: None. FINDINGS: The patient is status post ORIF of a right intertrochanteric fracture with a compression side screw fixation device and long stem intramedullary cyn of the right femur. There is evidence of a nondisplaced oblique fracture of the distal femoral diaphysis just proximal to the distal aspect of the intramedullary cyn fixation device. Soft tissue swelling. RAD/Femur Min 2 Views IMPRESSION: Nondisplaced oblique fracture of the distal femoral diaphysis. Soft tissue swelling. Electronically Signed: Felipe Gardner MD at 12:45 EST , Service support ,
--- NOTE | 2020-06-23 11:17 | ED.DCSUM_ITS ---
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 Negative for: Parasthesias, Weakness, Loss of function, Loss of consciousness, Amnesia Length of loss of consciousness: Negative per patient Narrative: Patient is an elderly woman who resides at the [facility]. She fell earlier this morning. She reportedly has been on the floor since 444. She denies head trauma. She denies headache. She denies loss of consciousness. She denies neck pain. She denies chest pain or shortness of breath. She denies numbness or tingling in her upper lower extremity. She does report central low back pain and right thigh pain. She is on Xarelto for chronic atrial fibrillation. Documentation of nursing facility indicates patient has cognitive communication deficit. She is alert oriented and answers questions appropriately. She is hard of hearing. Prior similar symptoms: No Recent Illness/Hospitalization: No - Past Medical History (1) Nonrheumatic mitral (valve) insufficiency Status: Acute (2) Renal insufficiency Status: Acute (3) Alzheimers disease Status: Chronic (4) Atrial fibrillation Status: Chronic (5) Chronic anemia Status: Chronic (6) Chronic anticoagulation Status: Chronic Comment: for PAF (7) Chronic back pain Status: Chronic (8) Compression fracture of L5 lumbar vertebra Status: Chronic Comment: kyphoplsty performed by Dr Blood 07/13 (9) Diastolic CHF Status: Chronic Comment: EF 65 % (10) GERD (gastroesophageal reflux disease) Status: Chronic (11) Hyperlipidemia Status: Chronic (12) Hypertension Status: Chronic (13) Osteoporosis Status: Chronic (14) T12 compression fracture Status: Chronic Past Medical History - Allergies and Home Meds Allergies/Adverse Reactions: Allergies codeine Allergy (Mild, Verified 06/23/20 12:08) Itching ibuprofen Allergy (Mild, Verified 06/23/20 12:08) Nausea/Vom/Diarrhea lisinopril Allergy (Mild, Verified 06/23/20 12:08) Itching tramadol Allergy (Mild, Verified 06/23/20 12:08) Rash bacitracin [From Neosporin Plus PainRelief(lita)] Adverse Reaction (Severe, Verified 06/23/20 12:08) Unknown neomycin [From Neosporin Plus PainRelief(lita)] Adverse Reaction (Severe, Verified 06/23/20 12:08) Unknown polymyxin B [From Neosporin Plus PainRelief(lita)] Adverse Reaction (Severe, Verified 06/23/20 12:08) Unknown pramoxine [From Neosporin Plus PainRelief(lita)] Adverse Reaction (Severe, Verified 06/23/20 12:08) Unknown prednisone Adverse Reaction (Severe, Verified 06/23/20 12:08) Unknown acetaminophen [From Darvocet-N 100] Adverse Reaction (Mild, Verified 06/23/20 12:08) Other pt takes tylenol at home and flagged d/t darvocet alendronate sodium [From Fosamax] Adverse Reaction (Mild, Verified 06/23/20 12:08) Other morphine Adverse Reaction (Mild, Verified 06/23/20 12:08) Itching propoxyphene napsylate [From Darvocet-N 100] Adverse Reaction (Mild, Verified 06/23/20 12:08) Other contrast dye Adverse Reaction (Severe, Uncoded 06/23/20 12:08) Renal impairment Primary Care Physician: Eddy Leigh III, MD [Primary Care Provider] - Prior records reviewed: Yes Surgical History: herniorrhaphy, rotator cuff repair, total hip arthroplasty, - Lives: [facility] Smoking Status: Never smoker Alcohol: None Drugs: None - Family History Maternal Family History: Family History (Last Reviewed 01/11/18 @ 08:48 by Isabel Donaldson) Sister Breast cancer Family History: Reports: Heart Disease - age 82 Paternal Family History: Family History (Last Reviewed 01/11/18 @ 08:48 by Isabel Donaldson) Sister Breast cancer Family History: Reports: No pertinent history Review of Systems General: Denies: Chills, Fever, Sweats Eyes: Denies: Visual changes - bilaterally, Blurred Vision - bilaterally ENT: Reports: - - She denies drainage from her ears. She denies bleeding from her nose or gums.. Denies: Bilateral ear pain, Rhinorrhea, Sore throat Cardiovascular: Denies: Chest pain, Palpitations Respiratory: Denies: Dyspnea, Cough, Dyspnea on exertion Gastrointestinal: Denies: Abdominal pain, Nausea, Vomiting, Diarrhea, Melena, Hematochezia Genitourinary: Denies: Dysuria, Hematuria, Frequency Musculoskeletal: Reports: Back pain - The back pain is chronic., Swelling, Extremity Pain. Denies: Myalgias, Arthralgias, Neck pain Skin: Denies: Rash, Wounds Neurological: Denies: Headache, Weakness, Numbness Hematologic: Denies: Easy bruising, Easy bleeding Allergy: Denies: Uticaria, Swelling of the mouth Physical Exam Inital Vital Signs reviewed: Yes General: Well nourished, Well developed Head: Normocephalic, Atraumatic. Negative for: Trauma, Tenderness Eyes: Perrl, EOMI, - - There is no subconjunctival hemorrhage noted.. Negative for: Pale conjunctiva, Scleral icterus ENT: TM's clear, No hemotympanum or drainage, No trauma, - - Is no clinical findings of basilar skull fracture.. Negative for: Hemotympanum, Otorrhea, Nasal trauma, Nasal septal hematoma Neck: Nontender, Full ROM. Negative for: Spinal Tenderness, Paraspinal Tenderness Cardiovascular: Regular rate, No murmurs, Normal S2, Irregular Respiratory: No distress, CTA bilaterally, Chest nontender Abdomen: Soft, Nontender, Nondistended, Normal bowel sounds, No masses Rectal: Deferred Back: Spinal Tenderness. Negative for: Nontender, CVA Tenderness - Right, CVA Tenderness - Left Skin: Normal color, No rash Neurological: Alert, Oriented x3, Cranial nerves II-XII grossly intact, Normal Strength, Normal Sensation. Negative for: Normal Gait Psychological: Normal affect - Glascow Coma Scale Eye Opening: Spontaneous Motor: Obeys Commands Verbal: Oriented Coma Scale Total: 15 Diagnostic/Tx/Re-eval Chest X-Ray - ED: 1 View, Read by ED Physician, Normal, Heart, No Acute Disease - Right and left prosthetic shoulders noted. Chronic changes noted on chest portion. No acute fractures noted., - - 2 view x-ray of the right femur reveals a periprosthetic supracondylar fracture involving the medial condyle. The LS- spine reveals degenerative changes. There is evidence of kyphoplasty involving T11 and T12. There is significant degenerative changes noted. There is also evidence of prior right 06/23/20 11:14 Chest 1 View (Portable) [RAD] Stat 06/23/20 11:16 Femur Min 2 Views [RAD] Stat Lumbar Spine 2 or 3 Views [RAD] Stat Laboratory Results 06/23/20 06/23/20 06/23/20 11:30 11:30 11:30 WBC 10.3 RBC 3.68 L Hgb 11.7 L Hct 38.5 MCV 104.6 H MCH 31.8 MCHC 30.4 L RDW Std Deviation 49.6 H RDW Coeff of Eneida 13.0 Plt Count 142 L MPV 11.6 Immature Gran % (Auto) 0.400 Neut % (Auto) 92.6 H Lymph % (Auto) 4.0 L [place] % (Auto) 2.9 Eos % (Auto) 0.0 Baso % (Auto) 0.1 Absolute Neuts (auto) 9.6 H Absolute Lymphs (auto) 0.41 L Nucleated RBC % 0 Differential Comment COMMENT Sodium 142 Potassium 4.0 Chloride 107 Carbon Dioxide 27.0 Anion Gap 8 BUN 24 H Creatinine 1.28 H Estim Creat Clear Calc 27.06 Est GFR (MDRD) Af Amer 51 L Est GFR (MDRD) Non-Af 42 L BUN/Creatinine Ratio 18.8 Glucose 151 H Calcium 8.4 L Total Creatine Kinase 44 There is no evidence of rhabdomyolysis. Creatinine is slightly elevated. Patient does have history of stage III chronic renal disease. She also has mild anemia due to chronic illness. - EKG Initial EKG Interpretation: Sinus Rhythm - [place] rhythm with a ventricular rate of 73. MO interval 160 ms. His duration 76 ms. QT durations 418 ms with a QTC of 460 ms. [place] is normal. Voltage is low. - Medical Decision Making Patient presents with obvious deformity to the right lower extremity. Suspect distal femur fracture based on area of pain and swelling. Appropriate laboratory tests as well as EKG and chest x-ray was obtained to risk stratify for surgical intervention. Furthermore because of her complaint of central low back pain over the lumbar vertebral bodies will obtain LS spine x-ray. CPK was obtained to rule out rhabdomyolysis. Patient metabolic panel to assess for acute on chronic renal injury and electrolytes. CBC to determine if she is anemic and will require transfusion. Case was discussed with orthopedist on-call who recommended transfer. Case was discussed with Dr. Elmo Garcia the ER physician at [facility] who accepted patient. ED Disposition - Plan for ED Patient: Disposition: [facility] Diagnosis: Displaced fracture of medial condyle of right femur, initial encounter for closed fracture, Back contusion, half-way current use of anticoagulant Referrals: Eddy Leigh III, MD [Primary Care Provider] -
[2020-06-23] MEDS: Ondansetron 4 MG/2 ML Vial IV (11:39)
[2020-06-23] MEDS: 0.9% Normal Saline 1,000 ML 150 ML IV (11:39)
[2020-06-23] MEDS: Morphine 4 MG/ML Syringe IV (11:39)
[2020-06-23 11:50] LABS: Absolute Lymphocyte Count 0.41 X10^3/uL (0.83-4.51); Absolute Neutrophil Count 9.6 X10^3/uL (2.0-7.7); Basophil# 0.01 X10^3/uL; Basophil% 0.1 % (0-1); Hematocrit 38.5 % (37-47); Hemoglobin 11.7 g/dL (12.0-15.0); Lymphocyte # 0.41 X10^3/ul (4.0); Mean Corp Hgb Conc 30.4 g/dL (32-36); Mean Corpuscular Hgb 31.8 pg (27.0-32.0); Mean Corpuscular Volume 104.6 fL (81-99); Mean Platelet Vol. 11.6 fl (6.2-12.0); Monocyte% 2.9 % (0-10); NRBC Flagged by Analyzer 0 % (0-5); Neutrophil # 9.55 X10^3/uL (2.7-7.7); Neutrophil % 92.6 % (47-70); POSITIVE DIFFERENTIAL YES; Platelet Count 142 K/mm3 (150-450); RBC Distribution Width SD 49.6 fl (35.1-43.9); Red Blood Count 3.68 M/mm3 (4.2-5.4); White Blood Count 10.3 K/mm3 (4.4-11.0)
[2020-06-23 11:54] LABS: Differential Indicated SCAN CRITERIA MET
[2020-06-23 12:09] LABS: Anion Gap 8 (5-15); BUN 24 mg/dL (7-18); BUN/Creat Ratio 18.8 RATIO (10-20); Calcium,Total 8.4 mg/dL (8.5-10.1); Chloride 107 mmol/L (98-107); Creatinine, Serum 1.28 mg/dL (0.55-1.02); EST Glomerular Filtration Rate 42 mL/min (>60); Est Glom Filt Rate - Afr Amer 51 mL/min (>60); Estimated Creatinine Clearance 27.06 ml/min; Glucose 151 mg/dL (74-106); Sodium Level 142 mmol/L (136-145)
[2020-06-23 12:38] LABS: CPK Total, Creatine Kinase 44 U/L (26-192)
[2020-06-23 13:03] VITALS: BP 102/80; PULSE 73; RESP 15; O2SAT 93
--- NOTE | 2020-06-23 13:04 | ED.RN ---
multiple attempts made by [address] urinary catheter. unsuccessful. dr. yuko borja tripp.
[2020-06-23 13:59] VITALS: BP 102/80; PULSE 72; RESP 12; O2SAT 96
[2020-06-23] MEDS: Morphine 2 MG/ML Syringe IV (14:00)
== END 2020-06-23 14:09 | disposition short-term general hospital (02) ==
PROVIDERS: Emergency Provider Emergency Medicine; PCP Family Medicine
DX: S72.431A Displaced fracture of medial condyle of right femur, initial encounter for closed fracture (principal); M97.01XA Periprosthetic fracture around internal prosthetic right hip joint, initial encounter; S30.0XXA Contusion of lower back and pelvis, initial encounter; W19.XXXA Unspecified fall, initial encounter; Y93.9 Activity, unspecified; Y92.10 Unspecified residential institution as the place of occurrence of the external cause; Y99.9 Unspecified external cause status; I13.0 Hypertensive heart and chronic kidney disease with heart failure and stage 1 through stage 4 chronic kidney disease, or unspecified chronic kidney disease; I50.32 Chronic diastolic (congestive) heart failure; N18.30 Chronic kidney disease, stage 3 unspecified; I48.0 Paroxysmal atrial fibrillation; G30.9 Alzheimer's disease, unspecified; F02.80 Dementia in other diseases classified elsewhere, unspecified severity, without behavioral disturbance, psychotic disturbance, mood disturbance, and anxiety; G89.29 Other chronic pain; E78.5 Hyperlipidemia, unspecified; K21.9 Gastro-esophageal reflux disease without esophagitis; M81.0 Age-related osteoporosis without current pathological fracture; H91.90 Unspecified hearing loss, unspecified ear; Z79.01 Long term (current) use of anticoagulants; Z79.899 Other long term (current) drug therapy
CPT/HCPCS: 71045; 72100; 73552; 80048; 82550; 85025; 93005; 96361; 96374; 96375; 96376; 99285; J7030; A4216; J2405

== ENCOUNTER → 2020-08-03 05:00 | Outpatient (REF) | payer MEDICARE, BC, SELFPAY ==
[2020-08-03 08:10] LABS: Hematocrit 33.6 % (37-47); Mean Corp Hgb Conc 29.8 g/dL (32-36); Mean Corpuscular Hgb 31.2 pg (27.0-32.0); Mean Corpuscular Volume 104.7 fL (81-99); Mean Platelet Vol. 12.7 fl (6.2-12.0); Platelet Count 142 K/mm3 (150-450); RBC Distribution Width CV 15.7 % (11.6-14.6); RBC Distribution Width SD 60.7 fl (35.1-43.9); Red Blood Count 3.21 M/mm3 (4.2-5.4); White Blood Count 3.5 K/mm3 (4.4-11.0)
[2020-08-03 08:35] LABS: Anion Gap 5 (5-15); BUN 15 mg/dL (7-18); BUN/Creat Ratio 19.4 RATIO (10-20); Chloride 109 mmol/L (98-107); Cholesterol 132 mg/dL (200); Creatinine, Serum 0.78 mg/dL (0.55-1.02); EST Glomerular Filtration Rate 75 mL/min (>60); Est Glom Filt Rate - Afr Amer 91 mL/min (>60); Glucose 77 mg/dL (74-106); High Density Lipoprotein 35 mg/dL; Potassium 3.1 mmol/L (3.5-5.1); Sodium Level 142 mmol/L (136-145); Thyroid Stim Hormone (TSH) 1.74 uIU/mL (0.358-3.74); Triglycerides 108 mg/dL; Very Low Density Lipoprotein 22 mg/dL (5-40)
== END ==
LOC: OLS.WCC 05:00
PROVIDERS: PCP Family Medicine; Visit Provider Family Medicine
DX: I48.91 Unspecified atrial fibrillation (principal); I10 Essential (primary) hypertension; Z79.899 Other long term (current) drug therapy
CPT/HCPCS: 36415; 80048; 80061; 84443; 85027

== ENCOUNTER → 2020-08-15 04:00 | Outpatient (REF) | payer MEDICARE, BC, SELFPAY ==
[2020-08-15 07:26] LABS: Anion Gap 4 (5-15); Chloride 108 mmol/L (98-107); Potassium 3.6 mmol/L (3.5-5.1); Sodium Level 142 mmol/L (136-145)
== END ==
LOC: OLS.WCC 04:00
PROVIDERS: PCP Family Medicine; Referring Provider Family Medicine; Visit Provider Family Medicine
DX: I48.91 Unspecified atrial fibrillation (principal); F03.90 Unspecified dementia, unspecified severity, without behavioral disturbance, psychotic disturbance, mood disturbance, and anxiety; I10 Essential (primary) hypertension; E03.9 Hypothyroidism, unspecified
CPT/HCPCS: 36415; 80051

== ENCOUNTER → 2020-08-17 08:48 | Outpatient (REF) | payer MEDICARE, BC, SELFPAY ==
[2020-08-18 08:54] LABS: Color, Urine Yellow (Yellow); Glucose, Dipstick Normal (Normal); Ketone-Dipstick 5 mg/dl (Negative); Leukocyte Esterase-Dipstick 500 /ul (Negative); Nitrite-Dipstick Positive (Negative); Occult Blood-Urine 50 /ul (Negative); Protein-Dipstick 30 mg/dl (Negative); Urine Bilirubin Dipstick Negative (Negative); Urine Clarity Cloudy (Clear); Urine Urobilinogen Normal (Normal)
== END ==
LOC: OLS.WCC 08:48
PROVIDERS: PCP Family Medicine; Visit Provider Family Medicine
DX: N39.0 Urinary tract infection, site not specified (principal)
CPT/HCPCS: 81002; 87077; 87086; 87088; 87186

== ENCOUNTER → 2020-09-01 05:00 | Outpatient (REF) | payer MEDICARE, BC, SELFPAY ==
[2020-09-01 08:02] LABS: Hematocrit 39.5 % (37-47); Hemoglobin 11.6 g/dL (12.0-15.0); Mean Corp Hgb Conc 29.4 g/dL (32-36); Mean Corpuscular Hgb 29.9 pg (27.0-32.0); Mean Corpuscular Volume 101.8 fL (81-99); Mean Platelet Vol. 12.2 fl (6.2-12.0); Platelet Count 146 K/mm3 (150-450); RBC Distribution Width CV 14.5 % (11.6-14.6); RBC Distribution Width SD 54.4 fl (35.1-43.9); Red Blood Count 3.88 M/mm3 (4.2-5.4); White Blood Count 5.1 K/mm3 (4.4-11.0)
[2020-09-01 08:36] LABS: Anion Gap 5 (5-15); BUN 15 mg/dL (7-18); BUN/Creat Ratio 18.2 RATIO (10-20); Calcium,Total 8.2 mg/dL (8.5-10.1); Chloride 109 mmol/L (98-107); Creatinine, Serum 0.82 mg/dL (0.55-1.02); EST Glomerular Filtration Rate 70 mL/min (>60); Est Glom Filt Rate - Afr Amer 85 mL/min (>60); Glucose 86 mg/dL (74-106); Potassium 2.5 mmol/L (3.5-5.1); Sodium Level 144 mmol/L (136-145)
== END ==
LOC: OLS.WCC 05:00
PROVIDERS: PCP Family Medicine; Referring Provider Family Medicine; Visit Provider Family Medicine
DX: D64.9 Anemia, unspecified (principal); I10 Essential (primary) hypertension
CPT/HCPCS: 36415; 80048; 85027

== ENCOUNTER → 2020-09-05 04:00 | Outpatient (REF) | payer MEDICARE, BC, SELFPAY ==
[2020-09-05 08:37] LABS: Anion Gap 4 (5-15); BUN 22 mg/dL (7-18); Calcium,Total 8.6 mg/dL (8.5-10.1); Chloride 113 mmol/L (98-107); Creatinine, Serum 0.76 mg/dL (0.55-1.02); EST Glomerular Filtration Rate 77 mL/min (>60); Est Glom Filt Rate - Afr Amer 93 mL/min (>60); Glucose 91 mg/dL (74-106); Potassium 4.2 mmol/L (3.5-5.1); Sodium Level 145 mmol/L (136-145)
== END ==
LOC: OLS.WCC 04:00
PROVIDERS: PCP Family Medicine; Referring Provider Family Medicine; Visit Provider Family Medicine
DX: I48.91 Unspecified atrial fibrillation (principal); I10 Essential (primary) hypertension; E87.6 Hypokalemia
CPT/HCPCS: 36415; 80048

== ENCOUNTER → 2020-09-30 05:00 | Outpatient (REF) | payer MEDICARE, BC, SELFPAY ==
[2020-09-30 07:54] LABS: Hemoglobin 11.5 g/dL (12.0-15.0); Mean Corp Hgb Conc 29.5 g/dL (32-36); Mean Corpuscular Hgb 30.8 pg (27.0-32.0); Mean Corpuscular Volume 104.6 fL (81-99); Mean Platelet Vol. 11.6 fl (6.2-12.0); Platelet Count 115 K/mm3 (150-450); RBC Distribution Width CV 14.3 % (11.6-14.6); RBC Distribution Width SD 55.3 fl (35.1-43.9); Red Blood Count 3.73 M/mm3 (4.2-5.4); White Blood Count 4.2 K/mm3 (4.4-11.0)
[2020-09-30 08:07] LABS: Anion Gap 4 (5-15); BUN 30 mg/dL (7-18); BUN/Creat Ratio 30.4 RATIO (10-20); Calcium,Total 8.5 mg/dL (8.5-10.1); Chloride 115 mmol/L (98-107); Creatinine, Serum 0.99 mg/dL (0.55-1.02); EST Glomerular Filtration Rate 57 mL/min (>60); Est Glom Filt Rate - Afr Amer 69 mL/min (>60); Glucose 81 mg/dL (74-106); Potassium 4.7 mmol/L (3.5-5.1); Sodium Level 144 mmol/L (136-145)
== END ==
LOC: OLS.WCC 05:00
PROVIDERS: PCP Family Medicine; Referring Provider Family Medicine; Visit Provider Family Medicine
DX: D64.9 Anemia, unspecified (principal); I10 Essential (primary) hypertension
CPT/HCPCS: 36415; 80048; 85027

== ENCOUNTER → 2020-12-01 05:00 | Outpatient (REF) | payer MEDICARE, BC, SELFPAY ==
[2020-12-01 08:42] LABS: Hemoglobin 12.1 g/dL (12.0-15.0); Mean Corp Hgb Conc 30.3 g/dL (32-36); Mean Corpuscular Hgb 32.1 pg (27.0-32.0); Mean Corpuscular Volume 106.1 fL (81-99); Mean Platelet Vol. 11.8 fl (6.2-12.0); Platelet Count 127 K/mm3 (150-450); RBC Distribution Width CV 14.2 % (11.6-14.6); RBC Distribution Width SD 55.3 fl (35.1-43.9); Red Blood Count 3.77 M/mm3 (4.2-5.4); White Blood Count 4.8 K/mm3 (4.4-11.0)
[2020-12-01 08:57] LABS: Anion Gap 7 (5-15); BUN 31 mg/dL (7-18); BUN/Creat Ratio 32.3 RATIO (10-20); Calcium,Total 8.4 mg/dL (8.5-10.1); Chloride 111 mmol/L (98-107); Creatinine, Serum 0.96 mg/dL (0.55-1.02); EST Glomerular Filtration Rate 59 mL/min (>60); Est Glom Filt Rate - Afr Amer 71 mL/min (>60); Glucose 78 mg/dL (74-106); Potassium 4.4 mmol/L (3.5-5.1); Sodium Level 143 mmol/L (136-145)
== END ==
LOC: OLS.WCC 05:00
PROVIDERS: PCP Family Medicine; Referring Provider Family Medicine; Visit Provider Family Medicine
DX: D64.9 Anemia, unspecified (principal); I10 Essential (primary) hypertension; Z79.899 Other long term (current) drug therapy
CPT/HCPCS: 36415; 80048; 85027

== ENCOUNTER → 2020-12-07 | Outpatient (CLI) | payer MEDICARE, BC, SELFPAY | END | disposition home or self-care (01) | LOC: LABSPEC 15:28 | PROVIDERS: Referring Provider Dermatology; Visit Provider Dermatology | DX: L01.03 Bullous impetigo (principal); D48.5 Neoplasm of uncertain behavior of skin; L57.0 Actinic keratosis | CPT/HCPCS: 87070; 87077; 87186; 87205 ==

== ENCOUNTER → 2021-01-31 05:00 | Outpatient (REF) | payer MEDICARE, BC, SELFPAY ==
[2021-01-31 07:52] LABS: Hematocrit 44.5 % (37-47); Hemoglobin 13.2 g/dL (12.0-15.0); Mean Corp Hgb Conc 29.7 g/dL (32-36); Mean Corpuscular Hgb 31.3 pg (27.0-32.0); Mean Corpuscular Volume 105.5 fL (81-99); Mean Platelet Vol. 12.1 fl (6.2-12.0); Platelet Count 116 K/mm3 (150-450); RBC Distribution Width CV 12.8 % (11.6-14.6); RBC Distribution Width SD 50.2 fl (35.1-43.9); Red Blood Count 4.22 M/mm3 (4.2-5.4); White Blood Count 4.2 K/mm3 (4.4-11.0)
[2021-01-31 08:38] LABS: Anion Gap 6 (5-15); BUN 20 mg/dL (7-18); BUN/Creat Ratio 20.3 RATIO (10-20); Calcium,Total 8.6 mg/dL (8.5-10.1); Chloride 110 mmol/L (98-107); Cholesterol 152 mg/dL (200); Creatinine, Serum 0.98 mg/dL (0.55-1.02); EST Glomerular Filtration Rate 57 mL/min (>60); Est Glom Filt Rate - Afr Amer 69 mL/min (>60); Glucose 83 mg/dL (74-106); High Density Lipoprotein 50 mg/dL; Potassium 4.8 mmol/L (3.5-5.1); Sodium Level 141 mmol/L (136-145); Thyroid Stim Hormone (TSH) 0.93 uIU/mL (0.358-3.74); Triglycerides 85 mg/dL; Very Low Density Lipoprotein 17 mg/dL (5-40)
== END ==
LOC: OLS.WCC 05:00
PROVIDERS: Visit Provider Family Medicine
DX: D64.9 Anemia, unspecified (principal); I10 Essential (primary) hypertension; E78.5 Hyperlipidemia, unspecified; E03.9 Hypothyroidism, unspecified; Z79.899 Other long term (current) drug therapy
CPT/HCPCS: 36415; 80048; 80061; 84443; 85027

== ENCOUNTER → 2021-04-03 05:00 | Outpatient (REF) | payer MEDICARE, BC, SELFPAY ==
[2021-04-03 06:48] LABS: Hematocrit 35.9 % (37-47); Hemoglobin 11.1 g/dL (12.0-15.0); Mean Corp Hgb Conc 30.9 g/dL (32-36); Mean Corpuscular Hgb 31.9 pg (27.0-32.0); Mean Corpuscular Volume 103.2 fL (81-99); Mean Platelet Vol. 12.4 fl (6.2-12.0); POSITIVE COUNT YES; Platelet Count 92 K/mm3 (150-450); RBC Distribution Width CV 14.4 % (11.6-14.6); RBC Distribution Width SD 54.8 fl (35.1-43.9); Red Blood Count 3.48 M/mm3 (4.2-5.4); White Blood Count 3.4 K/mm3 (4.4-11.0)
[2021-04-03 06:50] LABS: Scan Indicated on CBC? Y/N YES- FLAGS NOTED
[2021-04-03 07:00] LABS: Anion Gap 4 (5-15); BUN 31 mg/dL (7-18); BUN/Creat Ratio 32.4 RATIO (10-20); Calcium,Total 8.2 mg/dL (8.5-10.1); Chloride 113 mmol/L (98-107); Creatinine, Serum 0.96 mg/dL (0.55-1.02); EST Glomerular Filtration Rate 59 mL/min (>60); Est Glom Filt Rate - Afr Amer 71 mL/min (>60); Glucose 88 mg/dL (74-106); Potassium 4.9 mmol/L (3.5-5.1); Sodium Level 142 mmol/L (136-145)
== END ==
LOC: OLS.WCC 05:00
PROVIDERS: Visit Provider Family Medicine
DX: D64.9 Anemia, unspecified (principal); I10 Essential (primary) hypertension; Z79.899 Other long term (current) drug therapy
CPT/HCPCS: 36415; 80048; 85027

== ENCOUNTER → 2021-06-05 | Outpatient (REF) | payer MEDICARE, BC, SELFPAY ==
[2021-06-05 11:44] LABS: Hematocrit 45.5 % (37-47); Hemoglobin 14.1 g/dL (12.0-15.0); Mean Corpuscular Hgb 30.9 pg (27.0-32.0); Mean Corpuscular Volume 99.6 fL (81-99); Mean Platelet Vol. 12.5 fl (6.2-12.0); Platelet Count 127 K/mm3 (150-450); RBC Distribution Width CV 14.3 % (11.6-14.6); RBC Distribution Width SD 51.7 fl (35.1-43.9); Red Blood Count 4.57 M/mm3 (4.2-5.4); White Blood Count 8.2 K/mm3 (4.4-11.0)
[2021-06-05 12:13] LABS: Anion Gap 5 (5-15); BUN 35 mg/dL (7-18); BUN/Creat Ratio 37.2 RATIO (10-20); Calcium,Total 8.5 mg/dL (8.5-10.1); Chloride 110 mmol/L (98-107); Creatinine, Serum 0.94 mg/dL (0.55-1.02); EST Glomerular Filtration Rate 60 mL/min (>60); Est Glom Filt Rate - Afr Amer 73 mL/min (>60); Glucose 105 mg/dL (74-106); Potassium 3.9 mmol/L (3.5-5.1); Sodium Level 143 mmol/L (136-145)
== END | disposition home or self-care (01) ==
LOC: OLS.WCC 04:00
PROVIDERS: Referring Provider Family Medicine; Visit Provider Family Medicine
DX: D64.9 Anemia, unspecified (principal); I10 Essential (primary) hypertension
CPT/HCPCS: 36415; 80048; 85027